=== PATIENT | male | born 1975 | race Caucasian/White ===

== ENCOUNTER 2017-05-18 12:30 | Outpatient (CLI) | payer BC, SELFPAY | END 2017-05-18 16:15 | disposition home or self-care (01) | PROVIDERS: Visit Provider Internal Medicine Gastroenterology | DX: K50.919 Crohn's disease, unspecified, with unspecified complications (principal) | CPT/HCPCS: 80053; 85025; 86140; 96413; 96415; J1745 ==

== ENCOUNTER → 2017-06-22 14:55 | Outpatient (REF) | payer BC, MEDICARE, SELFPAY ==
[2017-06-22 17:43] LABS: Basophils % 0.5 % (0.1-2.0); Eosinophils # 0.2 K/mm3 (0.0-0.4); Eosinophils % 2.1 % (0.1-12.0); Hematocrit 43.4 % (42.0-52.0); Hemoglobin 14.3 g/dL (14.1-18.0); Lymphocytes # 2.2 K/mm3 (0.7-4.5); Lymphocytes % 26.6 K/mm3 (10-50); Mean Corpuscular HGB Conc 32.8 g/dL (31.8-35.4); Mean Corpuscular Hemoglobin 29.6 pg (27.0-31.2); Mean Corpuscular Volume 90.1 fl (80-94); Mean Platelet Volume 7.9 fl (7.4-10.4); Monocytes # 0.6 K/mm3 (0.1-1.0); Neutrophils # 5.3 K/mm3 (1.8-7.8); Neutrophils % 63.8 % (37.0-80.0); Platelet Count 229 K/mm3 (142-424); Red Blood Count 4.82 M/mm3 (4.60-6.20); Red Cell Distribution Width 13.7 % (11.5-17.5); White Blood Count 8.4 K/mm3 (4.8-10.8)
[2017-06-22 18:16] LABS: Free T4 (Free Thyroxine) 1.06 ng/dl (0.76-1.46); Thyroid Stimulating Hormone 1.49 uIU/ml (0.358-3.740)
== END ==
LOC: LAB 14:55
PROVIDERS: Visit Provider Nurse Practitioner Family
DX: R94.6 Abnormal results of thyroid function studies (principal); E04.9 Nontoxic goiter, unspecified; J02.9 Acute pharyngitis, unspecified
CPT/HCPCS: 84439; 84443; 85025

== ENCOUNTER → 2017-07-06 10:24 | Outpatient (CLI) | payer BC, MEDICARE, SELFPAY ==
--- NOTE | 2017-07-06 10:27 | US_ITS ---
US thyroid HISTORY: ITS.REASON: enlarged thyroid ORDERING PHYSICIAN: Nando Lambert PATIENT AGE: 42 years COMPARISON: None FINDINGS: Right lobe: 4.4 x 1.8 x 2.7 cm with homogeneous echogenicity Left lobe: 4.6 x 1.9 x 2.0 cm with homogeneous echogenicity Isthmus: Mildly prominent at 5 mm No nodules apparent IMPRESSION: Thyromegaly. No thyroid nodules apparent. Homogeneous echogenicity
== END ==
PROVIDERS: Family Provider Emergency Medicine; PCP Emergency Medicine; Visit Provider Nurse Practitioner Family
DX: E04.9 Nontoxic goiter, unspecified (principal)
CPT/HCPCS: 76536

== ENCOUNTER 2017-07-09 10:30 | Outpatient (CLI) | payer BC, MEDICARE, SELFPAY ==
[2017-07-09] VITALS (9 sets, daily range): BP systolic 120–150; BP diastolic 70–92; PULSE 66–74; RESP 20; TEMP 36.4–36.9; O2SAT 96–98; BMI 33.2
[2017-07-09 11:10] LABS: Basophils # 0.1 K/mm3 (0-0.2); Basophils % 0.8 % (0.1-2.0); Eosinophils # 0.3 K/mm3 (0.0-0.4); Eosinophils % 3.5 % (0.1-12.0); Hematocrit 42.6 % (42.0-52.0); Hemoglobin 14.1 g/dL (14.1-18.0); Lymphocytes # 1.8 K/mm3 (0.7-4.5); Lymphocytes % 24.1 K/mm3 (10-50); Mean Corpuscular HGB Conc 33.2 g/dL (31.8-35.4); Mean Corpuscular Hemoglobin 29.4 pg (27.0-31.2); Mean Corpuscular Volume 88.6 fl (80-94); Mean Platelet Volume 7.6 fl (7.4-10.4); Monocytes # 0.4 K/mm3 (0.1-1.0); Monocytes % 5.9 % (1.7-9.3); Neutrophils # 4.9 K/mm3 (1.8-7.8); Neutrophils % 65.8 % (37.0-80.0); Platelet Count 206 K/mm3 (142-424); Red Cell Distribution Width 13.8 % (11.5-17.5); White Blood Count 7.5 K/mm3 (4.8-10.8)
[2017-07-09 11:28] LABS: Alanine Aminotransferase 38 U/L (12-78); Albumin Level 3.3 gm/dL (3.4-5.0); Albumin/Globulin Ratio 0.8 (1.1-1.8); Alkaline Phosphatase 73 U/L (46-116); Anion Gap 11.6 mEq/L (5-15); Aspartate Amino Transferase 22 U/L (15-37); Bilirubin,Total 0.5 mg/dL (0.2-1.0); Blood Urea Nitrogen 12 mg/dL (7-18); Calcium 8.3 mg/dL (8.5-10.1); Carbon Dioxide 29 mmol/L (21.0-32.0); Chloride 105 mmol/L (98-107); Creatinine Clearance Estimated 141 mL/min (0-300); Creatinine,Serum 1.05 mg/dL (0.70-1.30); Estimated Glomerular Filt Rate 77 ml/min (>60); GFR (African American) 93 ML/MIN (>60); Globulin 3.9 gm/dl (1.3-3.2); Glucose 124 mg/dL (74-106); Potassium 3.6 mmoL/L (3.5-5.1); Sodium 142 mmol/L (136-145); Total Protein,Serum 7.2 gm/dL (6.4-8.2)
[2017-07-09 11:29] LABS: C-Reactive Protein 0.4 mg/L (0.0-0.9)
== END 2017-07-09 15:10 | disposition home or self-care (01) ==
LOC: INF 11:22
PROVIDERS: Family Provider Emergency Medicine; PCP Emergency Medicine; Visit Provider Internal Medicine Gastroenterology
DX: K50.919 Crohn's disease, unspecified, with unspecified complications (principal)
CPT/HCPCS: 80053; 85025; 86140; 86480; 96413; 96415; J1745

== ENCOUNTER → 2017-07-16 09:09 | Outpatient (POV) | payer BC, MEDICARE, SELFPAY | PROVIDERS: Family Provider Emergency Medicine; PCP Emergency Medicine; Visit Provider Physician Assistant | DX: Z00.00 Encounter for general adult medical examination without abnormal findings (principal) ==

== ENCOUNTER 2017-08-22 09:00 | Outpatient (CLI) | payer BC, MEDICARE, SELFPAY ==
[2017-08-22] VITALS (11 sets, daily range): BP systolic 110–138; BP diastolic 71–89; PULSE 67–81; RESP 16–18; TEMP 36.5; BMI 33.2
[2017-08-22 09:39] LABS: Basophils % 0.3 % (0.1-2.0); Eosinophils # 0.1 K/mm3 (0.0-0.4); Eosinophils % 0.6 % (0.1-12.0); Hematocrit 42.4 % (42.0-52.0); Hemoglobin 14.3 g/dL (14.1-18.0); Lymphocytes # 1.8 K/mm3 (0.7-4.5); Lymphocytes % 16.7 K/mm3 (10-50); Mean Corpuscular HGB Conc 33.7 g/dL (31.8-35.4); Mean Corpuscular Hemoglobin 30.3 pg (27.0-31.2); Mean Platelet Volume 7.7 fl (7.4-10.4); Monocytes # 0.7 K/mm3 (0.1-1.0); Monocytes % 6.4 % (1.7-9.3); Neutrophils # 8.1 K/mm3 (1.8-7.8); Platelet Count 263 K/mm3 (142-424); Red Blood Count 4.71 M/mm3 (4.60-6.20); Red Cell Distribution Width 13.7 % (11.5-17.5); White Blood Count 10.7 K/mm3 (4.8-10.8)
[2017-08-22 09:52] LABS: Alanine Aminotransferase 40 U/L (12-78); Albumin Level 3.4 gm/dL (3.4-5.0); Albumin/Globulin Ratio 0.8 (1.1-1.8); Alkaline Phosphatase 85 U/L (46-116); Anion Gap 10.6 mEq/L (5-15); Aspartate Amino Transferase 17 U/L (15-37); Bilirubin,Total 0.6 mg/dL (0.2-1.0); Blood Urea Nitrogen 16 mg/dL (7-18); Calcium 8.6 mg/dL (8.5-10.1); Carbon Dioxide 27 mmol/L (21.0-32.0); Chloride 102 mmol/L (98-107); Creatinine Clearance Estimated 144 mL/min (0-300); Creatinine,Serum 1.03 mg/dL (0.70-1.30); Estimated Glomerular Filt Rate 78 ml/min (>60); GFR (African American) 95 ML/MIN (>60); Globulin 4.2 gm/dl (1.3-3.2); Glucose 147 mg/dL (74-106); Potassium 3.6 mmoL/L (3.5-5.1); Sodium 136 mmol/L (136-145); Total Protein,Serum 7.6 gm/dL (6.4-8.2)
[2017-08-22 09:55] LABS: C-Reactive Protein < 0.2 mg/L (0.0-0.9)
[2017-08-23 15:34] LABS: Thyroid Peroxidase Antibodies 14 IU/mL (0-34)
[2017-09-28 20:14] LABS: Thyroid Stimulating Immunoglob <0.10
== END 2017-08-22 12:35 | disposition home or self-care (01) ==
LOC: INF 09:04
PROVIDERS: Family Provider Emergency Medicine; PCP Emergency Medicine; Visit Provider Internal Medicine Gastroenterology
DX: K50.919 Crohn's disease, unspecified, with unspecified complications (principal)
CPT/HCPCS: 80053; 83520; 85025; 86140; 86376; 96413; 96415; J1745

== ENCOUNTER → 2018-02-08 09:02 | Outpatient (CLI) | payer BC, MEDICARE, SELFPAY ==
[2018-02-08 10:40] LABS: Basophils % 0.5 % (0.1-2.0); Eosinophils # 0.2 K/mm3 (0.0-0.4); Eosinophils % 2.9 % (0.1-12.0); Hematocrit 42.5 % (42.0-52.0); Lymphocytes # 1.4 K/mm3 (0.7-4.5); Mean Corpuscular Volume 91.2 fl (80-94); Mean Platelet Volume 7.1 fl (7.4-10.4); Monocytes # 0.4 K/mm3 (0.1-1.0); Monocytes % 7.7 % (1.7-9.3); Neutrophils # 3.5 K/mm3 (1.8-7.8); Neutrophils % 63.9 % (37.0-80.0); Platelet Count 225 K/mm3 (142-424); Red Blood Count 4.66 M/mm3 (4.60-6.20); Red Cell Distribution Width 14.3 % (11.5-17.5); White Blood Count 5.4 K/mm3 (4.8-10.8)
[2018-02-08 11:26] LABS: Alanine Aminotransferase 40 U/L (12-78); Albumin Level 3.3 gm/dL (3.4-5.0); Albumin/Globulin Ratio 0.9 (1.1-1.8); Alkaline Phosphatase 91 U/L (46-116); Anion Gap 10.8 mEq/L (5-15); Aspartate Amino Transferase 28 U/L (15-37); Bilirubin,Total 0.5 mg/dL (0.2-1.0); Blood Urea Nitrogen 7 mg/dL (7-18); C-Reactive Protein 0.9 mg/L (0.0-0.9); Calcium 8.5 mg/dL (8.5-10.1); Carbon Dioxide 29 mmol/L (21.0-32.0); Chloride 108 mmol/L (98-107); Creatinine,Serum 1.04 mg/dL (0.70-1.30); Estimated Glomerular Filt Rate 78 ml/min (>60); GFR (African American) 94 ML/MIN (>60); Globulin 3.6 gm/dl (1.3-3.2); Glucose 107 mg/dL (74-106); Potassium 3.8 mmoL/L (3.5-5.1); Sodium 144 mmol/L (136-145); Total Protein,Serum 6.9 gm/dL (6.4-8.2)
[2018-02-08 13:47] LABS: Adenovirus F 40/41, stool Not Detected (NotDetected); Astrovirus Not Detected (NotDetected); Campylobacter Not Detected (NotDetected); Clostridium Difficile A/B, PCR Not Detected (NotDetected); Cryptosporidium Not Detected (NotDetected); Cyclospora Cayetanesis Not Detected (NotDetected); Entamoeba histolytica Not Detected (NotDetected); Enteroaggregative E coli Not Detected (NotDetected); Enterotoxigenic E coli Not Detected (NotDetected); Giardia lamblia Not Detected (NotDetected); Norovirus Not Detected (NotDetected); Plesimonas Shigalloides, PCR Not Detected (NotDetected); Rotavirus A Not Detected (NotDetected); Salmonella, PCR Not Detected (NotDetected); Sapovirus Not Detected (NotDetected); Shiga-like toxin E coli Not Detected (NotDetected); Shigella Enterovasive E coli Not Detected (NotDetected); Vibrio Cholerae Not Detected (NotDetected); Vibrio, PCR Not Detected (NotDetected); Yersinia Entercolitica, PCR Not Detected (NotDetected)
[2018-02-08 17:02] LABS: Enteropathogenic E coli Detected (NotDetected)
[2018-02-11 05:17] LABS: Thyroid Peroxidase Antibodies 15 IU/mL (0-34)
[2018-02-11 05:26] LABS: Thyroid Stimulating Immunoglob <0.10 IU/L (0.00-0.55)
[2018-02-15 18:31] LABS: Calprotectin, Fecal 81 ug/g (0-120)
== END ==
PROVIDERS: Otolaryngology; PCP Emergency Medicine; Visit Provider Physician Assistant
DX: E01.0 Iodine-deficiency related diffuse (endemic) goiter (principal); K50.919 Crohn's disease, unspecified, with unspecified complications
CPT/HCPCS: 36415; 80053; 83993; 84445; 85025; 86140; 86376; 87507

== ENCOUNTER 2018-04-24 10:00 | Outpatient (CLI) | payer BC, MEDICARE, SELFPAY ==
[2018-04-24] VITALS (11 sets, daily range): BP systolic 139–169; BP diastolic 67–97; PULSE 71–83; RESP 16–18; O2SAT 100; BMI 33.5
[2018-04-24 10:32] LABS: Basophils # 0.1 K/mm3 (0-0.2); Basophils % 0.8 % (0.1-2.0); Eosinophils # 0.2 K/mm3 (0.0-0.4); Eosinophils % 2.2 % (0.1-12.0); Hematocrit 44.6 % (42.0-52.0); Hemoglobin 14.5 g/dL (14.1-18.0); Lymphocytes # 1.9 K/mm3 (0.7-4.5); Lymphocytes % 22.8 % (10-50); Mean Corpuscular HGB Conc 32.6 g/dL (31.8-35.4); Mean Platelet Volume 7.2 fl (7.4-10.4); Monocytes # 0.6 K/mm3 (0.1-1.0); Monocytes % 6.7 % (1.7-9.3); Neutrophils # 5.6 K/mm3 (1.8-7.8); Neutrophils % 67.5 % (37.0-80.0); Platelet Count 236 K/mm3 (142-424); Red Blood Count 4.85 M/mm3 (4.60-6.20); Red Cell Distribution Width 14.5 % (11.5-17.5); White Blood Count 8.3 K/mm3 (4.8-10.8)
[2018-04-24 10:43] LABS: Alanine Aminotransferase 38 U/L (12-78); Albumin Level 3.4 gm/dL (3.4-5.0); Albumin/Globulin Ratio 0.8 (1.1-1.8); Alkaline Phosphatase 76 U/L (46-116); Anion Gap 12.9 mEq/L (5-15); Aspartate Amino Transferase 17 U/L (15-37); Bilirubin,Total 0.4 mg/dL (0.2-1.0); Blood Urea Nitrogen 11 mg/dL (7-18); C-Reactive Protein 0.5 mg/L (0.0-0.9); Calcium 8.3 mg/dL (8.5-10.1); Carbon Dioxide 28 mmol/L (21.0-32.0); Chloride 102 mmol/L (98-107); Creatinine Clearance Estimated 139 mL/min (50-200); Creatinine,Serum 1.06 mg/dL (0.70-1.30); Estimated Glomerular Filt Rate 76 ml/min (>60); GFR (African American) 91 ML/MIN (>60); Globulin 4.2 gm/dl (1.3-3.2); Glucose 121 mg/dL (74-106); Potassium 3.9 mmoL/L (3.5-5.1); Sodium 139 mmol/L (136-145); Total Protein,Serum 7.6 gm/dL (6.4-8.2)
== END 2018-04-24 14:00 | disposition home or self-care (01) ==
LOC: INF 10:13
PROVIDERS: Visit Provider Physician Assistant
DX: K50.90 Crohn's disease, unspecified, without complications (principal)
CPT/HCPCS: 80053; 85025; 86140; 96413; 96415; J1745

== ENCOUNTER → 2018-04-30 13:27 | Outpatient (POV) | payer BC, MEDICARE, SELFPAY | PROVIDERS: Visit Provider Dermatology | DX: Z00.00 Encounter for general adult medical examination without abnormal findings (principal) ==

== ENCOUNTER 2018-06-07 12:07 | Outpatient (CLI) | payer BC, MEDICARE, SELFPAY ==
[2018-06-07] VITALS (9 sets, daily range): BP systolic 115–135; BP diastolic 66–79; PULSE 68–85; RESP 20; TEMP 36.9; O2SAT 95–98; BMI 42.0
[2018-06-07 13:00] LABS: Basophils # 0.1 K/mm3 (0-0.2); Eosinophils # 0.2 K/mm3 (0.0-0.4); Hemoglobin 14.7 g/dL (14.1-18.0); Lymphocytes # 1.8 K/mm3 (0.7-4.5); Lymphocytes % 25.9 % (10-50); Mean Corpuscular HGB Conc 31.2 g/dL (31.8-35.4); Mean Corpuscular Hemoglobin 29.2 pg (27.0-31.2); Mean Corpuscular Volume 93.5 fl (80-94); Mean Platelet Volume 7.6 fl (7.4-10.4); Monocytes # 0.5 K/mm3 (0.1-1.0); Monocytes % 6.9 % (1.7-9.3); Neutrophils # 4.3 K/mm3 (1.8-7.8); Neutrophils % 63.2 % (37.0-80.0); Platelet Count 248 K/mm3 (142-424); Red Blood Count 5.02 M/mm3 (4.60-6.20); Red Cell Distribution Width 13.8 % (11.5-17.5); White Blood Count 6.9 K/mm3 (4.8-10.8)
[2018-06-07 14:16] LABS: Alanine Aminotransferase 40 U/L (12-78); Albumin Level 3.5 gm/dL (3.4-5.0); Albumin/Globulin Ratio 0.8 (1.1-1.8); Alkaline Phosphatase 92 U/L (46-116); Aspartate Amino Transferase 26 U/L (15-37); Bilirubin,Total 0.6 mg/dL (0.2-1.0); Blood Urea Nitrogen 10 mg/dL (7-18); C-Reactive Protein 0.9 mg/L (0.0-0.9); Calcium 8.5 mg/dL (8.5-10.1); Carbon Dioxide 31 mmol/L (21.0-32.0); Chloride 102 mmol/L (98-107); Creatinine Clearance Estimated 67 mL/min (50-200); Creatinine,Serum 1.17 mg/dL (0.70-1.30); Estimated Glomerular Filt Rate 67 ml/min (>60); GFR (African American) 82 ML/MIN (>60); Globulin 4.4 gm/dl (1.3-3.2); Glucose 116 mg/dL (74-106); Sodium 140 mmol/L (136-145); Total Protein,Serum 7.9 gm/dL (6.4-8.2)
== END 2018-06-07 15:35 | disposition home or self-care (01) ==
LOC: INF 12:07
PROVIDERS: Visit Provider Physician Assistant
DX: K50.919 Crohn's disease, unspecified, with unspecified complications (principal)
CPT/HCPCS: 80053; 85025; 86140; 96413; 96415; J1745

== ENCOUNTER 2018-07-19 09:18 | Outpatient (CLI) | payer BC, MEDICARE, SELFPAY ==
[2018-07-19] VITALS (11 sets, daily range): BP systolic 110–142; BP diastolic 66–90; PULSE 68–76; RESP 18; TEMP 36.6; O2SAT 96; BMI 34.0
[2018-07-19 09:44] LABS: Basophils # 0.1 K/mm3 (0-0.2); Basophils % 0.9 % (0.1-2.0); Eosinophils # 0.2 K/mm3 (0.0-0.4); Eosinophils % 2.7 % (0.1-12.0); Hematocrit 42.8 % (42.0-52.0); Hemoglobin 14.4 g/dL (14.1-18.0); Lymphocytes # 1.7 K/mm3 (0.7-4.5); Lymphocytes % 24.8 % (10-50); Mean Corpuscular HGB Conc 33.7 g/dL (31.8-35.4); Mean Corpuscular Hemoglobin 30.3 pg (27.0-31.2); Mean Platelet Volume 7.3 fl (7.4-10.4); Monocytes # 0.5 K/mm3 (0.1-1.0); Monocytes % 6.4 % (1.7-9.3); Neutrophils # 4.6 K/mm3 (1.8-7.8); Neutrophils % 65.2 % (37.0-80.0); Platelet Count 223 K/mm3 (142-424); Red Blood Count 4.75 M/mm3 (4.60-6.20); Red Cell Distribution Width 13.8 % (11.5-17.5)
[2018-07-19 09:55] LABS: Alanine Aminotransferase 63 U/L (12-78); Albumin Level 3.3 gm/dL (3.4-5.0); Albumin/Globulin Ratio 0.8 (1.1-1.8); Alkaline Phosphatase 71 U/L (46-116); Anion Gap 8.8 mEq/L (5-15); Aspartate Amino Transferase 21 U/L (15-37); Bilirubin,Total 0.6 mg/dL (0.2-1.0); Blood Urea Nitrogen 13 mg/dL (7-18); C-Reactive Protein 0.3 mg/L (0.0-0.9); Calcium 8.6 mg/dL (8.5-10.1); Carbon Dioxide 30 mmol/L (21.0-32.0); Chloride 104 mmol/L (98-107); Creatinine Clearance Estimated 137 mL/min (50-200); Estimated Glomerular Filt Rate 72 ml/min (>60); GFR (African American) 88 ML/MIN (>60); Globulin 3.9 gm/dl (1.3-3.2); Glucose 115 mg/dL (74-106); Potassium 3.8 mmoL/L (3.5-5.1); Sodium 139 mmol/L (136-145); Total Protein,Serum 7.2 gm/dL (6.4-8.2)
== END 2018-07-19 12:50 | disposition home or self-care (01) ==
LOC: INF 09:18
PROVIDERS: Visit Provider Physician Assistant
DX: K50.919 Crohn's disease, unspecified, with unspecified complications (principal)
CPT/HCPCS: 80053; 85025; 86140; 96413; 96415; J1745

== ENCOUNTER 2018-09-10 09:28 | Outpatient (CLI) | payer BC, MEDICARE, SELFPAY ==
[2018-09-10] VITALS (9 sets, daily range): BP systolic 121–154; BP diastolic 75–94; PULSE 74–85; RESP 16–20; TEMP 36.6–36.8; O2SAT 96–98; BMI 34.3
[2018-09-10 10:12] LABS: Basophils # 0.1 K/mm3 (0-0.2); Basophils % 0.9 % (0.1-2.0); Eosinophils # 0.2 K/mm3 (0.0-0.4); Eosinophils % 2.9 % (0.1-12.0); Hematocrit 41.5 % (42.0-52.0); Hemoglobin 14.2 g/dL (14.1-18.0); Lymphocytes # 1.7 K/mm3 (0.7-4.5); Lymphocytes % 24.6 % (10-50); Mean Corpuscular HGB Conc 34.3 g/dL (31.8-35.4); Mean Corpuscular Hemoglobin 30.2 pg (27.0-31.2); Mean Corpuscular Volume 88.1 fl (80-94); Mean Platelet Volume 7.1 fl (7.4-10.4); Monocytes # 0.5 K/mm3 (0.1-1.0); Monocytes % 7.2 % (1.7-9.3); Neutrophils # 4.4 K/mm3 (1.8-7.8); Neutrophils % 64.4 % (37.0-80.0); Platelet Count 240 K/mm3 (142-424); Red Blood Count 4.71 M/mm3 (4.60-6.20); Red Cell Distribution Width 14.5 % (11.5-17.5); White Blood Count 6.8 K/mm3 (4.8-10.8)
[2018-09-10 10:26] LABS: Alanine Aminotransferase 46 U/L (12-78); Albumin Level 3.2 gm/dL (3.4-5.0); Albumin/Globulin Ratio 0.7 (1.1-1.8); Alkaline Phosphatase 73 U/L (46-116); Anion Gap 11.9 mEq/L (5-15); Bilirubin,Total 0.5 mg/dL (0.2-1.0); Blood Urea Nitrogen 12 mg/dL (7-18); C-Reactive Protein 0.5 mg/L (0.0-0.9); Calcium 8.4 mg/dL (8.5-10.1); Carbon Dioxide 27 mmol/L (21.0-32.0); Chloride 104 mmol/L (98-107); Creatinine Clearance Estimated 135 mL/min (50-200); Creatinine,Serum 1.12 mg/dL (0.70-1.30); Estimated Glomerular Filt Rate 71 ml/min (>60); GFR (African American) 86 ML/MIN (>60); Globulin 4.3 gm/dl (1.3-3.2); Glucose 106 mg/dL (74-106); Sodium 139 mmol/L (136-145); Total Protein,Serum 7.5 gm/dL (6.4-8.2)
[2018-09-10 10:29] LABS: Aspartate Amino Transferase 18 U/L (15-37); Potassium 3.9 mmoL/L (3.5-5.1)
== END 2018-09-10 13:15 | disposition home or self-care (01) ==
LOC: INF 09:29
PROVIDERS: Visit Provider Physician Assistant
DX: K50.919 Crohn's disease, unspecified, with unspecified complications (principal)
CPT/HCPCS: 80053; 85025; 86140; 96413; 96415; J1745

== ENCOUNTER 2018-10-25 09:08 | Outpatient (CLI) | payer BC, MEDICARE, SELFPAY ==
[2018-10-25] VITALS (7 sets, daily range): BP systolic 114–141; BP diastolic 71–89; PULSE 69–89; RESP 16–20; O2SAT 91–96; BMI 33.6
[2018-10-25 09:47] LABS: Alanine Aminotransferase 50 U/L (12-78); Albumin Level 3.2 gm/dL (3.4-5.0); Albumin/Globulin Ratio 0.8 (1.1-1.8); Alkaline Phosphatase 87 U/L (46-116); Anion Gap 13.8 mEq/L (5-15); Aspartate Amino Transferase 23 U/L (15-37); Bilirubin,Total 0.6 mg/dL (0.2-1.0); Blood Urea Nitrogen 12 mg/dL (7-18); C-Reactive Protein 1.1 mg/L (0.0-0.9); Calcium 8.4 mg/dL (8.5-10.1); Carbon Dioxide 27 mmol/L (21.0-32.0); Chloride 103 mmol/L (98-107); Creatinine Clearance Estimated 127 mL/min (50-200); Creatinine,Serum 1.17 mg/dL (0.70-1.30); Estimated Glomerular Filt Rate 67 ml/min (>60); GFR (African American) 82 ML/MIN (>60); Glucose 101 mg/dL (74-106); Potassium 3.8 mmoL/L (3.5-5.1); Sodium 140 mmol/L (136-145); Total Protein,Serum 7.2 gm/dL (6.4-8.2)
[2018-10-25 10:50] LABS: Basophils # 0.1 K/mm3 (0-0.2); Basophils % 0.6 % (0.1-2.0); Eosinophils # 0.4 K/mm3 (0.0-0.4); Eosinophils % 4.5 % (0.1-12.0); Hematocrit 42.3 % (42.0-52.0); Hemoglobin 14.4 g/dL (14.1-18.0); Lymphocytes # 1.8 K/mm3 (0.7-4.5); Lymphocytes % 22.3 % (10-50); Mean Corpuscular Hemoglobin 29.9 pg (27.0-31.2); Mean Platelet Volume 7.5 fl (7.4-10.4); Monocytes # 0.6 K/mm3 (0.1-1.0); Monocytes % 7.5 % (1.7-9.3); Neutrophils # 5.3 K/mm3 (1.8-7.8); Neutrophils % 65.2 % (37.0-80.0); Platelet Count 235 K/mm3 (142-424); Red Blood Count 4.81 M/mm3 (4.60-6.20); Red Cell Distribution Width 14.1 % (11.5-17.5); White Blood Count 8.1 K/mm3 (4.8-10.8)
== END 2018-10-25 12:55 | disposition home or self-care (01) ==
LOC: INF 09:08
PROVIDERS: Visit Provider Physician Assistant
DX: K50.919 Crohn's disease, unspecified, with unspecified complications (principal); Z88.1 Allergy status to other antibiotic agents
CPT/HCPCS: 80053; 85025; 86140; 96413; 96415; J1745

== ENCOUNTER → 2018-10-29 08:11 | Outpatient (POV) | payer BC, MEDICARE, SELFPAY | PROVIDERS: Visit Provider Dermatology | DX: Z00.00 Encounter for general adult medical examination without abnormal findings (principal) ==

== ENCOUNTER 2018-12-19 08:25 | Outpatient (CLI) | payer BC, MEDICARE, SELFPAY ==
[2018-12-19] VITALS (8 sets, daily range): BP systolic 118–137; BP diastolic 71–92; PULSE 72–80; RESP 16–20; TEMP 36.6–36.8; O2SAT 96–99; BMI 33.9
[2018-12-19 09:36] LABS: Basophils % 0.4 % (0.1-2.0); Eosinophils # 0.2 K/mm3 (0.0-0.4); Eosinophils % 2.6 % (0.1-12.0); Hematocrit 40.1 % (42.0-52.0); Hemoglobin 12.9 g/dL (14.1-18.0); Lymphocytes # 1.5 K/mm3 (0.7-4.5); Lymphocytes % 25.6 % (10-50); Mean Corpuscular HGB Conc 32.1 g/dL (31.8-35.4); Mean Corpuscular Volume 87.4 fl (80-94); Mean Platelet Volume 7.7 fl (7.4-10.4); Monocytes # 0.5 K/mm3 (0.1-1.0); Monocytes % 9.5 % (1.7-9.3); Neutrophils # 3.5 K/mm3 (1.8-7.8); Neutrophils % 61.9 % (37.0-80.0); Platelet Count 230 K/mm3 (142-424); Red Blood Count 4.59 M/mm3 (4.60-6.20); Red Cell Distribution Width 13.6 % (11.5-17.5); White Blood Count 5.7 K/mm3 (4.8-10.8)
[2018-12-19 09:41] LABS: Alanine Aminotransferase 43 U/L (12-78); Albumin/Globulin Ratio 0.8 (1.1-1.8); Alkaline Phosphatase 83 U/L (46-116); Anion Gap 8.5 mEq/L (5-15); Aspartate Amino Transferase 15 U/L (15-37); Bilirubin,Total 0.6 mg/dL (0.2-1.0); Blood Urea Nitrogen 13 mg/dL (7-18); Calcium 8.5 mg/dL (8.5-10.1); Carbon Dioxide 31 mmol/L (21.0-32.0); Chloride 104 mmol/L (98-107); Creatinine Clearance Estimated 127 mL/min (50-200); Creatinine,Serum 1.18 mg/dL (0.70-1.30); Estimated Glomerular Filt Rate 67 ml/min (>60); GFR (African American) 81 ML/MIN (>60); Glucose 96 mg/dL (74-106); Potassium 3.5 mmoL/L (3.5-5.1); Sodium 140 mmol/L (136-145)
== END 2018-12-19 11:54 | disposition home or self-care (01) ==
LOC: INF 08:25
PROVIDERS: Visit Provider Physician Assistant
DX: K50.90 Crohn's disease, unspecified, without complications (principal)
CPT/HCPCS: 80053; 85025; 86140; 96413; 96415; J1745

== ENCOUNTER 2019-02-07 08:58 | Outpatient (CLI) | payer BC, MEDICARE, SELFPAY ==
[2019-02-07] VITALS (11 sets, daily range): BP systolic 107–147; BP diastolic 68–83; PULSE 74–88; RESP 18; O2SAT 94; BMI 33.9
[2019-02-07 09:33] LABS: Alanine Aminotransferase 58 U/L (12-78); Albumin Level 3.3 gm/dL (3.4-5.0); Albumin/Globulin Ratio 0.8 (1.1-1.8); Alkaline Phosphatase 95 U/L (46-116); Aspartate Amino Transferase 25 U/L (15-37); Basophils % 0.6 % (0.1-2.0); Bilirubin,Total 0.5 mg/dL (0.2-1.0); Blood Urea Nitrogen 14 mg/dL (7-18); C-Reactive Protein 1.1 mg/dL (0.0-0.9); Calcium 8.7 mg/dL (8.5-10.1); Carbon Dioxide 27 mmol/L (21.0-32.0); Chloride 104 mmol/L (98-107); Creatinine Clearance Estimated 136 mL/min (50-200); Eosinophils # 0.2 K/mm3 (0.0-0.4); Eosinophils % 3.4 % (0.1-12.0); Estimated Glomerular Filt Rate 72 ml/min (>60); GFR (African American) 88 ML/MIN (>60); Globulin 4.1 gm/dl (1.3-3.2); Glucose 122 mg/dL (74-106); Hematocrit 43.7 % (42.0-52.0); Hemoglobin 14.3 g/dL (14.1-18.0); Lymphocytes # 1.6 K/mm3 (0.7-4.5); Lymphocytes % 22.8 % (10-50); Mean Corpuscular HGB Conc 32.7 g/dL (31.8-35.4); Mean Corpuscular Volume 91.5 fl (80-94); Mean Platelet Volume 8.2 fl (7.4-10.4); Monocytes # 0.6 K/mm3 (0.1-1.0); Neutrophils # 4.6 K/mm3 (1.8-7.8); Neutrophils % 65.1 % (37.0-80.0); Platelet Count 237 K/mm3 (142-424); Red Blood Count 4.77 M/mm3 (4.60-6.20); Red Cell Distribution Width 13.9 % (11.5-17.5); Sodium 141 mmol/L (136-145); Total Protein,Serum 7.4 gm/dL (6.4-8.2); White Blood Count 7.1 K/mm3 (4.8-10.8)
== END 2019-02-07 12:25 | disposition home or self-care (01) ==
LOC: INF 08:58
PROVIDERS: Visit Provider Physician Assistant
DX: K50.90 Crohn's disease, unspecified, without complications (principal)
CPT/HCPCS: 80053; 85025; 86140; 96413; 96415; J1745

== ENCOUNTER 2019-03-03 09:32 | Outpatient (CLI) | payer BC, MEDICARE, SELFPAY ==
[2019-03-03 09:36] VITALS: BMI 33.9
[2019-03-03 09:52] LABS: Basophils % 0.5 % (0.1-2.0); Eosinophils # 0.2 K/mm3 (0.0-0.4); Eosinophils % 2.3 % (0.1-12.0); Hematocrit 44.2 % (42.0-52.0); Hemoglobin 13.8 g/dL (14.1-18.0); Lymphocytes # 1.6 K/mm3 (0.7-4.5); Lymphocytes % 21.6 % (10-50); Mean Corpuscular HGB Conc 31.3 g/dL (31.8-35.4); Mean Corpuscular Volume 92.8 fl (80-94); Mean Platelet Volume 7.7 fl (7.4-10.4); Monocytes # 0.5 K/mm3 (0.1-1.0); Neutrophils # 5.2 K/mm3 (1.8-7.8); Neutrophils % 68.6 % (37.0-80.0); Platelet Count 240 K/mm3 (142-424); Red Blood Count 4.76 M/mm3 (4.60-6.20); Red Cell Distribution Width 14.8 % (11.5-17.5); White Blood Count 7.6 K/mm3 (4.8-10.8)
[2019-03-03 10:16] LABS: Alanine Aminotransferase 57 U/L (12-78); Albumin Level 3.2 gm/dL (3.4-5.0); Albumin/Globulin Ratio 0.8 (1.1-1.8); Alkaline Phosphatase 83 U/L (46-116); Aspartate Amino Transferase 24 U/L (15-37); Bilirubin,Total 0.6 mg/dL (0.2-1.0); Blood Urea Nitrogen 12 mg/dL (7-18); C-Reactive Protein 1.2 mg/dL (0.0-0.9); Calcium 8.7 mg/dL (8.5-10.1); Carbon Dioxide 29 mmol/L (21.0-32.0); Chloride 105 mmol/L (98-107); Creatinine Clearance Estimated 144 mL/min (50-200); Creatinine,Serum 1.04 mg/dL (0.70-1.30); Estimated Glomerular Filt Rate 77 ml/min (>60); GFR (African American) 93 ML/MIN (>60); Globulin 3.9 gm/dl (1.3-3.2); Glucose 108 mg/dL (74-106); Sodium 143 mmol/L (136-145); Total Protein,Serum 7.1 gm/dL (6.4-8.2)
[2019-03-03 10:22] VITALS: BP 133/72; PULSE 87; RESP 18; TEMP 36.6; O2SAT 100
[2019-03-03 10:40] VITALS: BP 120/70; PULSE 79; RESP 18; TEMP 36.7; O2SAT 99
[2019-03-03 10:55] VITALS: BP 128/70; PULSE 73; RESP 20; TEMP 36.6; O2SAT 98
[2019-03-03 11:10] VITALS: BP 126/74; PULSE 75; RESP 18; TEMP 36.6; O2SAT 99
[2019-03-03 11:25] VITALS: BP 121/79; PULSE 72; RESP 18; TEMP 36.6; O2SAT 98
[2019-03-03 11:55] VITALS: BP 132/78; PULSE 74; RESP 18; TEMP 36.7; O2SAT 99
== END 2019-03-03 12:00 | disposition home or self-care (01) ==
LOC: INF 09:32
PROVIDERS: Visit Provider Physician Assistant
DX: K50.90 Crohn's disease, unspecified, without complications (principal)
CPT/HCPCS: 80053; 85025; 86140; 96413; J3590

== ENCOUNTER → 2019-04-22 10:08 | Outpatient (CLI) | payer BC, SELFPAY ==
[2019-04-22 10:19] LABS: Adenovirus F 40/41, stool Not Detected (NotDetected); Astrovirus Not Detected (NotDetected); Campylobacter Not Detected (NotDetected); Clostridium Difficile A/B, PCR Not Detected (NotDetected); Cryptosporidium Not Detected (NotDetected); Cyclospora Cayetanesis Not Detected (NotDetected); Entamoeba histolytica Not Detected (NotDetected); Enteroaggregative E coli Not Detected (NotDetected); Enteropathogenic E coli Not Detected (NotDetected); Enterotoxigenic E coli Not Detected (NotDetected); Giardia lamblia Not Detected (NotDetected); Norovirus Not Detected (NotDetected); Plesimonas Shigalloides, PCR Not Detected (NotDetected); Rotavirus A Not Detected (NotDetected); Salmonella, PCR Not Detected (NotDetected); Sapovirus Not Detected (NotDetected); Shiga-like toxin E coli Not Detected (NotDetected); Shigella Enterovasive E coli Not Detected (NotDetected); Vibrio Cholerae Not Detected (NotDetected); Vibrio, PCR Not Detected (NotDetected); Yersinia Entercolitica, PCR Not Detected (NotDetected)
[2019-04-24 21:11] LABS: Calprotectin, Fecal 785 ug/g (0-120)
== END ==
PROVIDERS: Visit Provider Physician Assistant
DX: K50.919 Crohn's disease, unspecified, with unspecified complications (principal)
CPT/HCPCS: 83993; 87177; 87507

== ENCOUNTER → 2019-06-24 08:18 | Outpatient (POV) | payer BC, SELFPAY | PROVIDERS: Visit Provider Dermatology | DX: Z00.00 Encounter for general adult medical examination without abnormal findings (principal) ==

== ENCOUNTER → 2019-07-08 09:57 | Outpatient (POV) | payer BC, SELFPAY | PROVIDERS: Visit Provider Dermatology | DX: Z00.00 Encounter for general adult medical examination without abnormal findings (principal) ==

== ENCOUNTER 2019-07-16 10:15 | Outpatient (CLI) | payer BC, SELFPAY ==
[2019-07-16 10:20] VITALS: BMI 33.6
[2019-07-16 10:40] VITALS: BP 129/81; PULSE 83; RESP 18
[2019-07-16 10:55] VITALS: BP 142/82; PULSE 89; RESP 18
[2019-07-16 10:59] LABS: Alanine Aminotransferase 65 U/L (12-78); Albumin/Globulin Ratio 1.2 (1.1-1.8); Alkaline Phosphatase 76 U/L (38-126); Anion Gap 9.9 mEq/L (5-15); Aspartate Amino Transferase 44 U/L (17-59); Bilirubin,Total 0.3 mg/dl (0.2-1.3); Blood Urea Nitrogen 17 mg/dl (9-20); Carbon Dioxide 29 mmol/L (22.0-30.0); Chloride 103 mmol/L (98-107); Creatinine Clearance Estimated 147 mL/min (50-200); Estimated Glomerular Filt Rate 80 ml/min (>60); GFR (African American) 97 ML/MIN (>60); Globulin 3.4 g/dL (1.3-3.2); Glucose 113 mg/dl (74-100); Potassium 3.9 mmoL/L (3.5-5.1); Sodium 138 mmol/L (136-145); Total Protein,Serum 7.4 g/dl (6.3-8.2)
[2019-07-16 11:06] LABS: C-Reactive Protein 5.7 mg/L (0-4)
[2019-07-16 11:08] LABS: Basophils # 0.1 K/mm3 (0-0.2); Basophils % 0.6 % (0.1-2.0); Eosinophils # 0.2 K/mm3 (0.0-0.4); Eosinophils % 1.6 % (0.1-12.0); Hematocrit 43.8 % (42.0-52.0); Hemoglobin 13.7 g/dL (14.1-18.0); Lymphocytes # 1.2 K/mm3 (0.7-4.5); Lymphocytes % 11.8 % (10-50); Mean Corpuscular HGB Conc 31.3 g/dL (31.8-35.4); Mean Corpuscular Hemoglobin 28.7 pg (27.0-31.2); Mean Corpuscular Volume 91.8 fl (80-94); Mean Platelet Volume 7.6 fl (7.4-10.4); Monocytes # 0.6 K/mm3 (0.1-1.0); Monocytes % 5.6 % (1.7-9.3); Neutrophils # 8.4 K/mm3 (1.8-7.8); Neutrophils % 80.4 % (37.0-80.0); Platelet Count 226 K/mm3 (142-424); Red Blood Count 4.78 M/mm3 (4.60-6.20); White Blood Count 10.4 K/mm3 (4.8-10.8)
[2019-07-16 11:20] VITALS: BP 148/98; PULSE 86; RESP 18
== END 2019-07-16 11:20 | disposition home or self-care (01) ==
PROVIDERS: PCP Emergency Medicine; Visit Provider Physician Assistant
DX: K50.919 Crohn's disease, unspecified, with unspecified complications (principal)
CPT/HCPCS: 80053; 85025; 86140; 96413; J3380

== ENCOUNTER 2019-07-30 12:12 | Outpatient (CLI) | payer BC, SELFPAY ==
[2019-07-30 12:12] VITALS: BMI 33.6
[2019-07-30 12:30] VITALS: BP 141/83; PULSE 69; RESP 20
[2019-07-30 12:40] LABS: Basophils # 0.1 K/mm3 (0-0.2); Basophils % 0.6 % (0.1-2.0); Eosinophils # 0.1 K/mm3 (0.0-0.4); Eosinophils % 1.6 % (0.1-12.0); Hematocrit 43.1 % (42.0-52.0); Hemoglobin 13.7 g/dL (14.1-18.0); Lymphocytes # 1.4 K/mm3 (0.7-4.5); Lymphocytes % 16.3 % (10-50); Mean Corpuscular HGB Conc 31.7 g/dL (31.8-35.4); Mean Corpuscular Hemoglobin 28.3 pg (27.0-31.2); Mean Corpuscular Volume 89.5 fl (80-94); Mean Platelet Volume 7.5 fl (7.4-10.4); Monocytes # 0.4 K/mm3 (0.1-1.0); Monocytes % 5.1 % (1.7-9.3); Neutrophils # 6.3 K/mm3 (1.8-7.8); Neutrophils % 76.4 % (37.0-80.0); Platelet Count 230 K/mm3 (142-424); Red Blood Count 4.82 M/mm3 (4.60-6.20); Red Cell Distribution Width 14.2 % (11.5-17.5); White Blood Count 8.3 K/mm3 (4.8-10.8)
[2019-07-30 12:49] LABS: Alanine Aminotransferase 42 U/L (12-78); Albumin Level 4.1 g/dl (3.5-5.0); Albumin/Globulin Ratio 1.2 (1.1-1.8); Alkaline Phosphatase 73 U/L (38-126); Anion Gap 9.1 mEq/L (5-15); Aspartate Amino Transferase 32 U/L (17-59); Bilirubin,Total 0.4 mg/dl (0.2-1.3); Blood Urea Nitrogen 10 mg/dl (9-20); Calcium 9.2 mg/dl (8.4-10.2); Carbon Dioxide 30 mmol/L (22.0-30.0); Chloride 102 mmol/L (98-107); Creatinine Clearance Estimated 147 mL/min (50-200); Estimated Glomerular Filt Rate 80 ml/min (>60); GFR (African American) 97 ML/MIN (>60); Globulin 3.5 g/dL (1.3-3.2); Glucose 104 mg/dl (74-100); Potassium 4.1 mmoL/L (3.5-5.1); Sodium 137 mmol/L (136-145); Total Protein,Serum 7.6 g/dl (6.3-8.2)
[2019-07-30 12:54] LABS: C-Reactive Protein 5.4 mg/L (0-4)
[2019-07-30 13:10] VITALS: BP 141/87; PULSE 69; RESP 20
== END 2019-07-30 13:15 | disposition home or self-care (01) ==
LOC: INF 12:12
PROVIDERS: Visit Provider Physician Assistant
DX: K50.919 Crohn's disease, unspecified, with unspecified complications (principal)
CPT/HCPCS: 80053; 85025; 86140; 96413; J3380

== ENCOUNTER 2019-08-27 11:40 | Outpatient (CLI) | payer BC, SELFPAY ==
[2019-08-27 11:49] VITALS: BMI 33.6
[2019-08-27 12:22] LABS: Basophils # 0.1 K/mm3 (0-0.2); Basophils % 0.5 % (0.1-2.0); Eosinophils # 0.3 K/mm3 (0.0-0.4); Eosinophils % 2.8 % (0.1-12.0); Hematocrit 43.6 % (42.0-52.0); Hemoglobin 13.9 g/dL (14.1-18.0); Lymphocytes # 1.6 K/mm3 (0.7-4.5); Lymphocytes % 17.7 % (10-50); Mean Corpuscular HGB Conc 31.9 g/dL (31.8-35.4); Mean Corpuscular Hemoglobin 28.6 pg (27.0-31.2); Mean Corpuscular Volume 89.8 fl (80-94); Mean Platelet Volume 7.6 fl (7.4-10.4); Monocytes # 0.5 K/mm3 (0.1-1.0); Monocytes % 5.2 % (1.7-9.3); Neutrophils # 6.7 K/mm3 (1.8-7.8); Neutrophils % 73.7 % (37.0-80.0); Platelet Count 219 K/mm3 (142-424); Red Blood Count 4.86 M/mm3 (4.60-6.20); Red Cell Distribution Width 13.4 % (11.5-17.5); White Blood Count 9.1 K/mm3 (4.8-10.8)
[2019-08-27 12:24] LABS: Chloride 102 mmol/L (98-107); Sodium 138 mmol/L (136-145)
[2019-08-27 12:25] VITALS: BP 160/107; PULSE 87; RESP 20; TEMP 36.7
[2019-08-27 12:26] LABS: Blood Urea Nitrogen 12 mg/dl (9-20); Creatinine Clearance Estimated 163 mL/min (50-200); Estimated Glomerular Filt Rate 91 ml/min (>60); GFR (African American) 110 ML/MIN (>60)
[2019-08-27 12:27] LABS: Alanine Aminotransferase 35 U/L (12-78); Albumin Level 3.9 g/dl (3.5-5.0); Albumin/Globulin Ratio 1.1 (1.1-1.8); Alkaline Phosphatase 61 U/L (38-126); Aspartate Amino Transferase 25 U/L (17-59); Bilirubin,Total 0.6 mg/dl (0.2-1.3); Carbon Dioxide 29 mmol/L (22.0-30.0); Globulin 3.4 g/dL (1.3-3.2); Glucose 114 mg/dl (74-100); Total Protein,Serum 7.3 g/dl (6.3-8.2)
[2019-08-27 12:33] LABS: C-Reactive Protein 8.9 mg/L (0-4)
[2019-08-27 12:40] VITALS: BP 159/91; PULSE 81; RESP 18
[2019-08-27 12:55] VITALS: BP 145/78; PULSE 86; RESP 18
== END 2019-08-27 13:10 | disposition home or self-care (01) ==
LOC: INF 11:45
PROVIDERS: Visit Provider Physician Assistant
DX: K50.90 Crohn's disease, unspecified, without complications (principal)
CPT/HCPCS: 80053; 85025; 86140; 96413; J3380

== ENCOUNTER 2019-09-26 05:22 | Emergency (ER) | payer BC, SELFPAY ==
[2019-09-26 05:36] VITALS: BP 141/88; PULSE 95; RESP 16; TEMP 36.7; O2SAT 96; BMI 33.2
--- NOTE | 2019-09-26 05:44 | CA_ITS ---
APPROVED REPORT Right Lower Extremity Venous Study for DVT. Pl Sql Developer: CT Indications DVT of Lower Extremity: Right rule out clot Past History DVT : Date : 05/2014 Prior Lower Extremity Venous Duplex Extensive RLE DVT from a lengthy hospital stay at from bowel resection and sepsis Vein Imaging CFV (R): compressive, spontaneous, phasic, augmentation SFJ (R): compressive, spontaneous, phasic, augmentation FEM (R): Partially Compressible POP (R): Partially Compressible PTV (R): Compressible GSV (R): Compressible SSV (R): Not Visualized Peroneals (R):Compressible GAS (R): Partially Compressible Findings The right Femoral, , Popliteal, and Calf Veins are dilated with mixed echoes and are not fully compressible. Reflux noted in SFV and Pop veins. Conclusion The right Femoral, , Popliteal, and Calf Veins are dilated with mixed echoes and are not fully compressible compatible with DVT Critical Notification Critical Value: Yes Physician Notified Date: 09/26/2019 Time: 07:43 Physician Name: Lori Other Discipline: RN Report Read Back Electronically signed by : Alan Clark MD 09/26/2019 17:04:33
[2019-09-26 06:04] LABS: Basophils # 0.1 K/mm3 (0-0.2); Basophils % 0.6 % (0.1-2.0); Eosinophils # 0.5 K/mm3 (0.0-0.4); Eosinophils % 4.7 % (0.1-12.0); Hematocrit 43.2 % (42.0-52.0); Hemoglobin 14.4 g/dL (14.1-18.0); Lymphocytes # 1.7 K/mm3 (0.7-4.5); Lymphocytes % 16.8 % (10-50); Mean Corpuscular HGB Conc 33.4 g/dL (31.8-35.4); Mean Corpuscular Hemoglobin 28.4 pg (27.0-31.2); Mean Corpuscular Volume 85.2 fl (80-94); Mean Platelet Volume 8.1 fl (7.4-10.4); Monocytes # 0.7 K/mm3 (0.1-1.0); Monocytes % 6.9 % (1.7-9.3); Neutrophils # 7.1 K/mm3 (1.8-7.8); Neutrophils % 71.1 % (37.0-80.0); Platelet Count 203 K/mm3 (142-424); Red Blood Count 5.06 M/mm3 (4.60-6.20); Red Cell Distribution Width 13.3 % (11.5-17.5); White Blood Count 9.9 K/mm3 (4.8-10.8)
[2019-09-26 06:08] LABS: Chloride 103 mmol/L (98-107); Potassium 3.9 mmoL/L (3.5-5.1); Sodium 138 mmol/L (136-145)
[2019-09-26 06:11] LABS: Alanine Aminotransferase 53 U/L (12-78); Albumin Level 3.9 g/dl (3.5-5.0); Albumin/Globulin Ratio 1.2 (1.1-1.8); Alkaline Phosphatase 84 U/L (38-126); Anion Gap 10.9 mEq/L (5-15); Aspartate Amino Transferase 31 U/L (17-59); Bilirubin,Total 0.6 mg/dl (0.2-1.3); Blood Urea Nitrogen 14 mg/dl (9-20); Calcium 9.1 mg/dl (8.4-10.2); Carbon Dioxide 28 mmol/L (22.0-30.0); Creatinine Clearance Estimated 145 mL/min (50-200); Estimated Glomerular Filt Rate 80 ml/min (>60); GFR (African American) 97 ML/MIN (>60); Globulin 3.3 g/dL (1.3-3.2); Glucose 111 mg/dl (74-100); Total Protein,Serum 7.2 g/dl (6.3-8.2)
[2019-09-26 06:27] LABS: Erythrocyte Sedimentation Rate 19 mm/hr (0-15)
[2019-09-26 06:32] VITALS: BP 131/86; PULSE 88; RESP 16; O2SAT 97
--- NOTE | 2019-09-26 06:37 | PC.NURSE ---
Patient gone to vascular for doppler at this time.
--- NOTE | 2019-09-26 07:29 | HMH.EDLOEX ---
ED Disposition Clinical Impression: DVT (deep venous thrombosis) Qualifiers: DVT location: lower extremity Affected thrombotic vein of extremity: femoral Chronicity: acute Laterality: left Qualified Code(s): I82.412 - Acute embolism and thrombosis of left femoral vein Disposition: Home, Self-Care Condition on Discharge: Good Instructions: DI for Deep Vein Thrombosis Additional Instructions: use meds as directed and see pcp next week Referrals: Quentin Hernandez MD [Primary Care Provider] - - Critical Care Critical Care Time: No Attestation: On 09/26/19, the high probability of a clinically significant, sudden or life threatening deterioration of the following system(s) required my full and direct attention, intervention and personal management. The time I documented below is in addition to time spent performing reported procedures but includes the following listed in this critical care notation. Medical Decision Making - Medical Records Medical records reviewed: Yes: I reviewed the patient's medical records. - Dale Inquiry Pt receiving controlled substance: No Vital Signs: 09/26/19 05:36 09/26/19 06:32 Temperature 98.1 F Temperature Source Oral Pulse Rate [Right Brachial] 95 H 88 Respiratory Rate 16 16 Blood Pressure [Right Arm] 141/88 H 131/86 Blood Pressure Mean [Right Arm] 105 101 Blood Pressure Source [Right Arm] Automatic Cuff Automatic Cuff Blood Pressure Position [Right Arm] Sitting Sitting 02 Sat by Pulse Oximetry 96 97 Oxygen Delivery Method Room Air Room Air - Lab Data Lab results reviewed: Yes: I reviewed the patient's lab results. Lab Results 09/26/19 05:57: WBC 9.9, RBC 5.06, Hgb 14.4, Hct 43.2, MCV 85.2, MCH 28.4, MCHC 33.4, RDW 13.3, Plt Count 203, MPV 8.1, Neut % (Auto) 71.1, Lymph % (Auto) 16.8, Hamblen % (Auto) 6.9, Eos % (Auto) 4.7, Baso % (Auto) 0.6, Neut # (Auto) 7.1, Lymph # (Auto) 1.7, Hamblen # (Auto) 0.7, Eos # (Auto) 0.5 H, Baso # (Auto) 0.1, ESR 19 H 09/26/19 05:57: Sodium 138, Potassium 3.9, Chloride 103, Carbon Dioxide 28, Anion Gap 10.9, BUN 14, Creatinine 1.00, Estimated Creat Clear 145, Estimated GFR 80, Est GFR ( Amer) 97, Glucose 111 H, Calcium 9.1, Total Bilirubin 0.6, AST 31, ALT 53, Alkaline Phosphatase 84, C-Reactive Protein 15.0 H, Total Protein 7.2, Albumin 3.9, Globulin 3.3 H, Albumin/Globulin Ratio 1.2 Result diagrams: 09/26/19 05:57 09/26/19 05:57 - US Data US Images: Lower Extremity ED US Reviewed: Yes: I have viewed radiologist's interpretation Findings Narrative: positive dvt Lower Extremity Injury HPI - General Chief Complaint: Extremity Injury, Lower Stated Complaint: Right leg swollen and painful no injury Time Seen by Provider: 09/26/19 06:00 Mode of Arrival: Ambulatory Source of Information: Patient, Medical Record Limitations: No Limitations Description of Symptoms (Recalled from ER Triage Doc. by RN): Patient reports an aching pain in his right calf. Patient reprots no known injuries and that the pain just started when he woke up around 0430 to go to the bathroom. Patient reports he has a hx of clots in that same leg back in 2014. - History of Present Illness HPI Narrative: pain to rt lower leg with hx of dvt MD complaint: other (no injury) Onset (ago): day(s) Place: home Severity: moderate Context: other (possible dvt ) Other symptoms: none - Related Data Home Medications Medication Instructions Recorded Confirmed Budesonide [Budesonide EC] 9 mg PO DAILY 07/16/19 09/26/19 Previous Rx's Medication Instructions Recorded bupropion HCl 150 mg tablet,12 hr 150 mg PO BID #180 tab 02/25/19 sustained-release Allergies Allergy/AdvReac Type Severity Reaction Status Date / Time ciprofloxacin [From Cipro] Allergy Unknown GI UPSET Verified 09/26/19 05:47 metronidazole Allergy Unknown I-HIVES Verified 09/26/19 05:47 [facility] History - Hepatitis A Screen Drug use history?: No High risk sexual behaviors
[2019-09-26 08:06] VITALS: BP 131/86; PULSE 88; RESP 16; TEMP 36.7; O2SAT 97
== END 2019-09-26 08:08 | disposition home or self-care (01) ==
PROVIDERS: Emergency Provider Emergency Medicine; PCP Emergency Medicine
DX: I82.412 Acute embolism and thrombosis of left femoral vein (principal)
CPT/HCPCS: 80053; 85025; 85651; 86140; 93971; 96372; 99283

== ENCOUNTER 2019-10-22 12:45 | Outpatient (CLI) | payer BC, SELFPAY ==
[2019-10-22 12:56] VITALS: BMI 34.0
[2019-10-22 13:08] LABS: Basophils # 0.1 K/mm3 (0-0.2); Basophils % 0.6 % (0.1-2.0); Eosinophils # 0.5 K/mm3 (0.0-0.4); Eosinophils % 6.6 % (0.1-12.0); Hematocrit 42.1 % (42.0-52.0); Lymphocytes # 1.5 K/mm3 (0.7-4.5); Lymphocytes % 19.3 % (10-50); Mean Corpuscular HGB Conc 33.3 g/dL (31.8-35.4); Mean Corpuscular Hemoglobin 28.5 pg (27.0-31.2); Mean Corpuscular Volume 85.6 fl (80-94); Mean Platelet Volume 8.6 fl (7.4-10.4); Monocytes # 0.4 K/mm3 (0.1-1.0); Monocytes % 5.1 % (1.7-9.3); Neutrophils # 5.3 K/mm3 (1.8-7.8); Neutrophils % 68.4 % (37.0-80.0); Platelet Count 214 K/mm3 (142-424); Red Blood Count 4.91 M/mm3 (4.60-6.20); Red Cell Distribution Width 14.1 % (11.5-17.5); White Blood Count 7.8 K/mm3 (4.8-10.8)
[2019-10-22 13:11] LABS: Chloride 103 mmol/L (98-107); Potassium 3.6 mmoL/L (3.5-5.1); Sodium 140 mmol/L (136-145)
[2019-10-22 13:13] LABS: Blood Urea Nitrogen 9 mg/dl (9-20); Creatinine Clearance Estimated 114 mL/min (50-200); Estimated Glomerular Filt Rate 59 ml/min (>60); GFR (African American) 72 ML/MIN (>60)
[2019-10-22 13:14] LABS: Alanine Aminotransferase 48 U/L (12-78); Albumin Level 3.8 g/dl (3.5-5.0); Albumin/Globulin Ratio 1.1 (1.1-1.8); Alkaline Phosphatase 105 U/L (38-126); Anion Gap 11.6 mEq/L (5-15); Aspartate Amino Transferase 40 U/L (17-59); Bilirubin,Total 0.7 mg/dl (0.2-1.3); Calcium 9.1 mg/dl (8.4-10.2); Carbon Dioxide 29 mmol/L (22.0-30.0); Globulin 3.5 g/dL (1.3-3.2); Glucose 140 mg/dl (74-100); Total Protein,Serum 7.3 g/dl (6.3-8.2)
[2019-10-22 13:15] VITALS: BP 128/95; PULSE 85; RESP 18; TEMP 36.8; O2SAT 99
[2019-10-22 13:19] LABS: C-Reactive Protein 11.3 mg/L (0-4)
[2019-10-22 13:45] VITALS: BP 124/89; PULSE 88; RESP 18; O2SAT 98
[2019-10-22 13:56] VITALS: BP 133/85; PULSE 83; RESP 18; O2SAT 99
== END 2019-10-22 13:57 | disposition home or self-care (01) ==
LOC: INF 12:53
PROVIDERS: Visit Provider Physician Assistant
DX: K50.90 Crohn's disease, unspecified, without complications (principal)
CPT/HCPCS: 80053; 85025; 86140; 96413; J3380

== ENCOUNTER 2019-12-17 13:52 | Outpatient (CLI) | payer BC, MEDICARE, SELFPAY ==
[2019-12-17 13:54] VITALS: BMI 33.9
[2019-12-17 14:12] LABS: Basophils % 0.5 % (0.1-2.0); Eosinophils # 0.4 K/mm3 (0.0-0.4); Eosinophils % 5.8 % (0.1-12.0); Hematocrit 38.9 % (42.0-52.0); Hemoglobin 13.1 g/dL (14.1-18.0); Lymphocytes # 1.5 K/mm3 (0.7-4.5); Lymphocytes % 20.2 % (10-50); Mean Corpuscular HGB Conc 33.6 g/dL (31.8-35.4); Mean Corpuscular Volume 86.2 fl (80-94); Monocytes # 0.5 K/mm3 (0.1-1.0); Monocytes % 6.7 % (1.7-9.3); Neutrophils # 4.9 K/mm3 (1.8-7.8); Neutrophils % 66.8 % (37.0-80.0); Platelet Count 217 K/mm3 (142-424); Red Blood Count 4.51 M/mm3 (4.60-6.20); Red Cell Distribution Width 14.1 % (11.5-17.5); White Blood Count 7.3 K/mm3 (4.8-10.8)
[2019-12-17 14:25] LABS: Alanine Aminotransferase 33 U/L (12-78); Albumin Level 3.8 g/dl (3.5-5.0); Albumin/Globulin Ratio 1.1 (1.1-1.8); Alkaline Phosphatase 89 U/L (38-126); Anion Gap 10.4 mEq/L (5-15); Aspartate Amino Transferase 27 U/L (17-59); Bilirubin,Total 0.6 mg/dl (0.2-1.3); Blood Urea Nitrogen 11 mg/dl (9-20); Calcium 8.8 mg/dl (8.4-10.2); Carbon Dioxide 33 mmol/L (22.0-30.0); Chloride 101 mmol/L (98-107); Creatinine Clearance Estimated 123 mL/min (50-200); Estimated Glomerular Filt Rate 65 ml/min (>60); GFR (African American) 79 ML/MIN (>60); Globulin 3.6 g/dL (1.3-3.2); Glucose 92 mg/dl (74-100); Potassium 3.4 mmoL/L (3.5-5.1); Sodium 141 mmol/L (136-145); Total Protein,Serum 7.4 g/dl (6.3-8.2)
[2019-12-17 14:31] LABS: C-Reactive Protein 8.9 mg/L (0-4)
[2019-12-17 14:35] VITALS: BP 147/91; PULSE 78; RESP 18; O2SAT 98
[2019-12-17 14:51] LABS: Coronavirus 19 IgG Antibody Negative (Negative); Coronavirus 19 IgM Antibody Negative (Negative)
[2019-12-17 15:15] VITALS: BP 146/96; PULSE 81; RESP 18; O2SAT 96
== END 2019-12-17 15:15 | disposition home or self-care (01) ==
LOC: INF 13:52
PROVIDERS: Emergency Medicine; Visit Provider Physician Assistant
DX: Z03.818 Encounter for observation for suspected exposure to other biological agents ruled out (principal); K50.90 Crohn's disease, unspecified, without complications
CPT/HCPCS: 80053; 85025; 86140; 86328; 96413; J3380

== ENCOUNTER 2020-02-10 11:38 | Outpatient (CLI) | payer BC, MEDICARE, SELFPAY ==
[2020-02-10 11:41] VITALS: BMI 34.4
[2020-02-10 12:03] LABS: Basophils # 0.1 K/mm3 (0-0.2); Basophils % 0.8 % (0.1-2.0); Eosinophils # 0.6 K/mm3 (0.0-0.4); Eosinophils % 8.3 % (0.1-12.0); Hematocrit 39.3 % (42.0-52.0); Hemoglobin 13.4 g/dL (14.1-18.0); Lymphocytes # 1.5 K/mm3 (0.7-4.5); Lymphocytes % 19.1 % (10-50); Mean Corpuscular Hemoglobin 29.1 pg (27.0-31.2); Mean Corpuscular Volume 85.6 fl (80-94); Mean Platelet Volume 7.6 fl (7.4-10.4); Monocytes # 0.6 K/mm3 (0.1-1.0); Monocytes % 7.2 % (1.7-9.3); Neutrophils % 64.6 % (37.0-80.0); Platelet Count 221 K/mm3 (142-424); Red Blood Count 4.59 M/mm3 (4.60-6.20); Red Cell Distribution Width 14.2 % (11.5-17.5); White Blood Count 7.7 K/mm3 (4.8-10.8)
[2020-02-10 12:10] VITALS: BP 125/74; PULSE 79; RESP 20; TEMP 36.9; O2SAT 95
[2020-02-10 12:15] LABS: Chloride 103 mmol/L (98-107); Potassium 4.5 mmoL/L (3.5-5.1); Sodium 137 mmol/L (136-145)
[2020-02-10 12:17] LABS: Alanine Aminotransferase 68 U/L (12-78); Aspartate Amino Transferase 48 U/L (17-59); Blood Urea Nitrogen 17 mg/dl (9-20); Creatinine Clearance Estimated 125 mL/min (50-200); Estimated Glomerular Filt Rate 65 ml/min (>60); GFR (African American) 79 ML/MIN (>60)
[2020-02-10 12:18] LABS: Albumin Level 3.7 g/dl (3.5-5.0); Albumin/Globulin Ratio 1.1 (1.1-1.8); Alkaline Phosphatase 109 U/L (38-126); Anion Gap 12.5 mEq/L (5-15); Bilirubin,Total 0.7 mg/dl (0.2-1.3); Calcium 9.2 mg/dl (8.4-10.2); Carbon Dioxide 26 mmol/L (22.0-30.0); Globulin 3.5 g/dL (1.3-3.2); Glucose 131 mg/dl (74-100); Total Protein,Serum 7.2 g/dl (6.3-8.2)
[2020-02-10 12:23] LABS: C-Reactive Protein 8.8 mg/L (0-4)
[2020-02-10 12:45] VITALS: BP 125/74; PULSE 74; RESP 20; TEMP 37.1; O2SAT 95
== END 2020-02-10 12:50 | disposition home or self-care (01) ==
LOC: INF 11:38
PROVIDERS: Visit Provider Physician Assistant
DX: K50.90 Crohn's disease, unspecified, without complications (principal)
CPT/HCPCS: 80053; 85025; 86140; 96413; J3380

== ENCOUNTER 2020-04-07 12:00 | Outpatient (CLI) | payer BC, MEDICARE, SELFPAY ==
[2020-04-07 12:04] VITALS: BMI 33.9
[2020-04-07 12:25] VITALS: BP 121/79; PULSE 83; RESP 18; TEMP 36.4; O2SAT 99
[2020-04-07 12:26] LABS: Chloride 106 mmol/L (98-107); Potassium 3.6 mmoL/L (3.5-5.1); Sodium 139 mmol/L (136-145)
[2020-04-07 12:28] LABS: Alanine Aminotransferase 35 U/L (12-78); Aspartate Amino Transferase 30 U/L (17-59); Blood Urea Nitrogen 14 mg/dl (9-20); Creatinine Clearance Estimated 122 mL/min (50-200); Estimated Glomerular Filt Rate 65 ml/min (>60); GFR (African American) 79 ML/MIN (>60)
[2020-04-07 12:29] LABS: Albumin Level 3.7 g/dl (3.5-5.0); Albumin/Globulin Ratio 1.2 (1.1-1.8); Alkaline Phosphatase 87 U/L (38-126); Anion Gap 9.6 mEq/L (5-15); Bilirubin,Total 0.6 mg/dl (0.2-1.3); Calcium 8.5 mg/dl (8.4-10.2); Carbon Dioxide 27 mmol/L (22.0-30.0); Globulin 3.1 g/dL (1.3-3.2); Glucose 109 mg/dl (74-100); Total Protein,Serum 6.8 g/dl (6.3-8.2)
[2020-04-07 12:30] LABS: Basophils # 0.1 K/mm3 (0-0.2); Basophils % 0.9 % (0.1-2.0); Eosinophils # 0.4 K/mm3 (0.0-0.4); Hematocrit 39.3 % (42.0-52.0); Hemoglobin 12.2 g/dL (14.1-18.0); Lymphocytes # 1.4 K/mm3 (0.7-4.5); Lymphocytes % 23.3 % (10-50); Mean Corpuscular HGB Conc 31.1 g/dL (31.8-35.4); Mean Corpuscular Hemoglobin 26.9 pg (27.0-31.2); Mean Corpuscular Volume 86.2 fl (80-94); Mean Platelet Volume 7.1 fl (7.4-10.4); Monocytes # 0.5 K/mm3 (0.1-1.0); Neutrophils # 3.7 K/mm3 (1.8-7.8); Neutrophils % 61.8 % (37.0-80.0); Platelet Count 211 K/mm3 (142-424); Red Blood Count 4.55 M/mm3 (4.60-6.20); Red Cell Distribution Width 13.6 % (11.5-17.5)
[2020-04-07 12:35] LABS: C-Reactive Protein 6.3 mg/L (0-4)
[2020-04-07 13:01] VITALS: BP 134/75; PULSE 88; RESP 18
== END 2020-04-07 13:01 | disposition home or self-care (01) ==
LOC: INF 12:04
PROVIDERS: Visit Provider Physician Assistant
DX: K50.918 Crohn's disease, unspecified, with other complication (principal)
CPT/HCPCS: 80053; 85025; 86140; 96413; J3380

== ENCOUNTER 2020-06-03 11:29 | Outpatient (CLI) | payer BC, MEDICARE, SELFPAY ==
[2020-06-03 11:36] VITALS: BMI 34.2
[2020-06-03 12:01] LABS: Basophils # 0.1 K/mm3 (0-0.2); Basophils % 1.1 % (0.1-2.0); Eosinophils # 0.6 K/mm3 (0.0-0.4); Eosinophils % 7.8 % (0.1-12.0); Hematocrit 39.9 % (42.0-52.0); Hemoglobin 12.8 g/dL (14.1-18.0); Lymphocytes # 1.7 K/mm3 (0.7-4.5); Lymphocytes % 23.8 % (10-50); Mean Corpuscular HGB Conc 32.2 g/dL (31.8-35.4); Mean Corpuscular Hemoglobin 27.8 pg (27.0-31.2); Mean Corpuscular Volume 86.5 fl (80-94); Mean Platelet Volume 7.3 fl (7.4-10.4); Monocytes # 0.5 K/mm3 (0.1-1.0); Neutrophils # 4.3 K/mm3 (1.8-7.8); Neutrophils % 60.4 % (37.0-80.0); Platelet Count 190 K/mm3 (142-424); Red Blood Count 4.61 M/mm3 (4.60-6.20); Red Cell Distribution Width 13.9 % (11.5-17.5); White Blood Count 7.1 K/mm3 (4.8-10.8)
[2020-06-03 12:04] VITALS: BP 122/80; PULSE 73; RESP 18; TEMP 36.5; O2SAT 100
[2020-06-03 12:06] LABS: Chloride 102 mmol/L (98-107)
[2020-06-03 12:07] LABS: Potassium 3.9 mmoL/L (3.5-5.1); Sodium 138 mmol/L (136-145)
[2020-06-03 12:09] LABS: Alanine Aminotransferase 37 U/L (12-78); Alkaline Phosphatase 98 U/L (38-126); Aspartate Amino Transferase 29 U/L (17-59); Bilirubin,Total 0.5 mg/dl (0.2-1.3); Blood Urea Nitrogen 21 mg/dl (9-20); Creatinine Clearance Estimated 105 mL/min (50-200); Estimated Glomerular Filt Rate 54 ml/min (>60); GFR (African American) 66 ML/MIN (>60)
[2020-06-03 12:10] LABS: Albumin/Globulin Ratio 1.2 (1.1-1.8); Anion Gap 11.9 mEq/L (5-15); Calcium 9.3 mg/dl (8.4-10.2); Carbon Dioxide 28 mmol/L (22.0-30.0); Globulin 3.4 g/dL (1.3-3.2); Glucose 119 mg/dl (74-100); Total Protein,Serum 7.4 g/dl (6.3-8.2)
[2020-06-03 12:15] LABS: C-Reactive Protein 5.6 mg/L (0-4)
[2020-06-03 12:50] VITALS: BP 120/75; PULSE 78; RESP 16; TEMP 36.6; O2SAT 99
== END 2020-06-03 12:50 | disposition home or self-care (01) ==
LOC: INF 11:29
PROVIDERS: Visit Provider Physician Assistant
DX: K50.90 Crohn's disease, unspecified, without complications (principal)
CPT/HCPCS: 80053; 85025; 86140; 96413; J3380

== ENCOUNTER 2020-08-11 09:23 | Outpatient (CLI) | payer BC, MEDICARE, SELFPAY ==
[2020-08-11 09:26] VITALS: BMI 34.2
[2020-08-11 09:55] LABS: Basophils # 0.1 K/mm3 (0-0.2); Basophils % 0.6 % (0.1-2.0); Eosinophils # 0.4 K/mm3 (0.0-0.4); Eosinophils % 5.8 % (0.1-12.0); Hematocrit 38.6 % (42.0-52.0); Hemoglobin 12.8 g/dL (14.1-18.0); Lymphocytes # 1.6 K/mm3 (0.7-4.5); Lymphocytes % 21.6 % (10-50); Mean Corpuscular HGB Conc 33.1 g/dL (31.8-35.4); Mean Corpuscular Hemoglobin 27.9 pg (27.0-31.2); Mean Corpuscular Volume 84.3 fl (80-94); Mean Platelet Volume 7.8 fl (7.4-10.4); Monocytes # 0.5 K/mm3 (0.1-1.0); Monocytes % 6.8 % (1.7-9.3); Neutrophils # 4.9 K/mm3 (1.8-7.8); Neutrophils % 65.2 % (37.0-80.0); Platelet Count 197 K/mm3 (142-424); Red Blood Count 4.58 M/mm3 (4.60-6.20); Red Cell Distribution Width 14.3 % (11.5-17.5); White Blood Count 7.5 K/mm3 (4.8-10.8)
[2020-08-11 09:59] LABS: Chloride 105 mmol/L (98-107); Sodium 140 mmol/L (136-145)
[2020-08-11 10:01] LABS: Blood Urea Nitrogen 13 mg/dl (9-20); Creatinine Clearance Estimated 123 mL/min (50-200); Estimated Glomerular Filt Rate 65 ml/min (>60); GFR (African American) 79 ML/MIN (>60)
[2020-08-11 10:02] LABS: Alanine Aminotransferase 26 U/L (12-78); Albumin Level 3.7 g/dl (3.5-5.0); Albumin/Globulin Ratio 1.1 (1.1-1.8); Alkaline Phosphatase 79 U/L (38-126); Aspartate Amino Transferase 24 U/L (17-59); Bilirubin,Total 0.6 mg/dl (0.2-1.3); Carbon Dioxide 29 mmol/L (22.0-30.0); Globulin 3.5 g/dL (1.3-3.2); Glucose 130 mg/dl (74-100); Total Protein,Serum 7.2 g/dl (6.3-8.2)
[2020-08-11 10:08] LABS: C-Reactive Protein 4.9 mg/L (0-4)
[2020-08-11 10:12] VITALS: BP 136/99; PULSE 78; RESP 18; TEMP 36.3; O2SAT 98
[2020-08-11 10:55] VITALS: BP 150/91; PULSE 81; RESP 18
== END 2020-08-11 10:55 | disposition home or self-care (01) ==
LOC: INF 09:23
PROVIDERS: Visit Provider Physician Assistant
DX: K50.90 Crohn's disease, unspecified, without complications (principal)
CPT/HCPCS: 80053; 85025; 86140; 96413; J3380

== ENCOUNTER → 2020-09-21 08:34 | Outpatient (POV) | payer BC, MEDICARE, SELFPAY | PROVIDERS: Visit Provider Dermatology | DX: Z00.00 Encounter for general adult medical examination without abnormal findings (principal) ==

== ENCOUNTER 2020-10-06 10:10 | Outpatient (CLI) | payer BC, MEDICARE, SELFPAY ==
[2020-10-06 10:15] VITALS: BMI 34.3
[2020-10-06 10:45] LABS: Basophils # 0.1 K/mm3 (0-0.2); Basophils % 0.8 % (0.1-2.0); Eosinophils # 0.5 K/mm3 (0.0-0.4); Eosinophils % 5.9 % (0.1-12.0); Hematocrit 37.3 % (42.0-52.0); Hemoglobin 12.4 g/dL (14.1-18.0); Lymphocytes # 1.8 K/mm3 (0.7-4.5); Lymphocytes % 23.2 % (10-50); Mean Corpuscular HGB Conc 33.2 g/dL (31.8-35.4); Mean Corpuscular Volume 84.3 fl (80-94); Monocytes # 0.4 K/mm3 (0.1-1.0); Monocytes % 5.8 % (1.7-9.3); Neutrophils # 4.9 K/mm3 (1.8-7.8); Neutrophils % 64.4 % (37.0-80.0); Platelet Count 192 K/mm3 (142-424); Red Blood Count 4.43 M/mm3 (4.60-6.20); Red Cell Distribution Width 14.4 % (11.5-17.5); White Blood Count 7.6 K/mm3 (4.8-10.8)
[2020-10-06 10:50] VITALS: BP 129/101; PULSE 74; RESP 18; TEMP 36.5; O2SAT 98
[2020-10-06 10:54] LABS: Chloride 104 mmol/L (98-107); Potassium 4.1 mmoL/L (3.5-5.1); Sodium 138 mmol/L (136-145)
[2020-10-06 10:57] LABS: Alanine Aminotransferase 49 U/L (12-78); Albumin Level 3.9 g/dl (3.5-5.0); Albumin/Globulin Ratio 1.3 (1.1-1.8); Alkaline Phosphatase 87 U/L (38-126); Anion Gap 10.1 mEq/L (5-15); Aspartate Amino Transferase 33 U/L (17-59); Bilirubin,Total 0.5 mg/dl (0.2-1.3); Blood Urea Nitrogen 13 mg/dl (9-20); Calcium 9.1 mg/dl (8.4-10.2); Carbon Dioxide 28 mmol/L (22.0-30.0); Creatinine Clearance Estimated 135 mL/min (50-200); Estimated Glomerular Filt Rate 72 ml/min (>60); GFR (African American) 87 ML/MIN (>60); Globulin 3.1 g/dL (1.3-3.2); Glucose 118 mg/dl (74-100)
[2020-10-06 11:03] LABS: C-Reactive Protein 4.4 mg/L (0-4)
[2020-10-06 11:25] VITALS: BP 137/89; PULSE 74; RESP 18
[2020-10-10 10:37] LABS: QuantiFERON-TB Gold Plus Negative (Negative)
== END 2020-10-06 11:40 | disposition home or self-care (01) ==
LOC: INF 10:12
PROVIDERS: Visit Provider Physician Assistant
DX: K50.919 Crohn's disease, unspecified, with unspecified complications (principal)
CPT/HCPCS: 80053; 85025; 86140; 86480; 96413; J3380

== ENCOUNTER 2020-12-03 13:40 | Outpatient (CLI) | payer BC, MEDICARE, SELFPAY ==
[2020-12-03 13:54] VITALS: BMI 33.0
[2020-12-03 14:05] LABS: Basophils # 0.1 K/mm3 (0-0.2); Basophils % 0.9 % (0.1-2.0); Eosinophils # 0.5 K/mm3 (0.0-0.4); Eosinophils % 6.7 % (0.1-12.0); Hematocrit 39.1 % (42.0-52.0); Hemoglobin 13.5 g/dL (14.1-18.0); Lymphocytes # 2.1 K/mm3 (0.7-4.5); Lymphocytes % 26.3 % (10-50); Mean Corpuscular HGB Conc 34.5 g/dL (31.8-35.4); Mean Corpuscular Hemoglobin 27.9 pg (27.0-31.2); Mean Corpuscular Volume 80.7 fl (80-94); Mean Platelet Volume 7.9 fl (7.4-10.4); Monocytes # 0.5 K/mm3 (0.1-1.0); Monocytes % 6.4 % (1.7-9.3); Neutrophils # 4.7 K/mm3 (1.8-7.8); Neutrophils % 59.7 % (37.0-80.0); Platelet Count 201 K/mm3 (142-424); Red Blood Count 4.85 M/mm3 (4.60-6.20); Red Cell Distribution Width 14.7 % (11.5-17.5); White Blood Count 7.9 K/mm3 (4.8-10.8)
[2020-12-03 14:07] LABS: Chloride 107 mmol/L (98-107); Sodium 141 mmol/L (136-145)
[2020-12-03 14:10] LABS: Alanine Aminotransferase 36 U/L (12-78); Albumin Level 4.2 g/dl (3.5-5.0); Albumin/Globulin Ratio 1.2 (1.1-1.8); Alkaline Phosphatase 94 U/L (38-126); Aspartate Amino Transferase 31 U/L (17-59); Bilirubin,Total 0.7 mg/dl (0.2-1.3); Blood Urea Nitrogen 13 mg/dl (9-20); Calcium 8.8 mg/dl (8.4-10.2); Carbon Dioxide 27 mmol/L (22.0-30.0); Creatinine Clearance Estimated 122 mL/min (50-200); Estimated Glomerular Filt Rate 65 ml/min (>60); GFR (African American) 79 ML/MIN (>60); Globulin 3.4 g/dL (1.3-3.2); Glucose 102 mg/dl (74-100); Total Protein,Serum 7.6 g/dl (6.3-8.2)
[2020-12-03 14:19] VITALS: BP 144/95; PULSE 79; RESP 17; TEMP 36.8; O2SAT 96
[2020-12-03 14:38] VITALS: BP 136/99; PULSE 79; RESP 17; O2SAT 97
[2020-12-03 14:47] LABS: C-Reactive Protein 4.1 mg/L (0-4)
[2020-12-03 15:15] VITALS: BP 141/68; PULSE 84; RESP 17; O2SAT 97
== END 2020-12-03 15:17 | disposition home or self-care (01) ==
LOC: INF 13:49
PROVIDERS: Visit Provider Physician Assistant
DX: K50.919 Crohn's disease, unspecified, with unspecified complications (principal)
CPT/HCPCS: 80053; 85025; 86140; 96413; J3380

== ENCOUNTER → 2020-12-07 13:44 | Outpatient (CLI) | payer BC, MEDICARE, SELFPAY ==
--- NOTE | 2020-12-07 13:45 | CA_ITS ---
APPROVED REPORT Bilateral Lower Extremity Venous Study for DVT. Calker: ASHLEY Indications Lower Extremity Pain: Right Lower Extremity Swelling: Right pain and swelling RLE; DVT X 2 Past History DVT : Right Vein Imaging CFV (R): compressive, spontaneous, phasic, augmentation SFJ (R): compressive, spontaneous, phasic, augmentation FEM (R): compressive, spontaneous, phasic, augmentation POP (R): compressive, spontaneous, phasic, augmentation PTV (R): compressive, spontaneous, phasic, augmentation GSV (R): compressive, spontaneous, phasic, augmentation Peroneals (R):compressive, spontaneous, phasic, augmentation GAS (R): compressive, spontaneous, phasic, augmentation Findings No evidence of DVT or SVT of the right lower extremity veins. Conclusion No evidence of DVT or SVT of the right lower extremity veins. Electronically signed by : Alan Clark MD 12/07/2020 16:14:43
== END ==
PROVIDERS: PCP Emergency Medicine; Visit Provider Physician Assistant
DX: M79.604 Pain in right leg (principal); M79.89 Other specified soft tissue disorders
CPT/HCPCS: 93971

== ENCOUNTER 2021-01-28 09:28 | Outpatient (CLI) | payer BC, MEDICARE, SELFPAY ==
[2021-01-28 09:35] VITALS: BMI 34.8
[2021-01-28 10:14] LABS: Basophils # 0.1 K/mm3 (0-0.2); Basophils % 0.9 % (0.1-2.0); Eosinophils # 0.6 K/mm3 (0.0-0.4); Eosinophils % 7.3 % (0.1-12.0); Hematocrit 41.7 % (42.0-52.0); Hemoglobin 13.4 g/dL (14.1-18.0); Lymphocytes % 25.1 % (10-50); Mean Corpuscular HGB Conc 32.1 g/dL (31.8-35.4); Mean Corpuscular Hemoglobin 28.4 pg (27.0-31.2); Mean Corpuscular Volume 88.5 fl (80-94); Mean Platelet Volume 9.3 fl (7.4-10.4); Monocytes # 0.6 K/mm3 (0.1-1.0); Monocytes % 7.5 % (1.7-9.3); Neutrophils # 4.7 K/mm3 (1.8-7.8); Neutrophils % 59.1 % (37.0-80.0); Platelet Count 196 K/mm3 (142-424); Red Blood Count 4.71 M/mm3 (4.60-6.20); Red Cell Distribution Width 14.9 % (11.5-17.5); White Blood Count 7.9 K/mm3 (4.8-10.8)
[2021-01-28 10:15] VITALS: BP 134/94; PULSE 83; RESP 18; O2SAT 97
[2021-01-28 10:20] LABS: Chloride 103 mmol/L (98-107); Potassium 3.8 mmoL/L (3.5-5.1); Sodium 140 mmol/L (136-145)
[2021-01-28 10:23] LABS: Alanine Aminotransferase 75 U/L (12-78); Albumin Level 3.7 g/dl (3.5-5.0); Albumin/Globulin Ratio 1.2 (1.1-1.8); Alkaline Phosphatase 92 U/L (38-126); Anion Gap 10.8 mEq/L (5-15); Aspartate Amino Transferase 44 U/L (17-59); Bilirubin,Total 0.6 mg/dl (0.2-1.3); Blood Urea Nitrogen 11 mg/dl (9-20); Calcium 8.8 mg/dl (8.4-10.2); Carbon Dioxide 30 mmol/L (22.0-30.0); Creatinine Clearance Estimated 125 mL/min (50-200); Estimated Glomerular Filt Rate 65 ml/min (>60); GFR (African American) 79 ML/MIN (>60); Globulin 3.1 g/dL (1.3-3.2); Glucose 107 mg/dl (74-100); Total Protein,Serum 6.8 g/dl (6.3-8.2)
[2021-01-28 10:29] LABS: C-Reactive Protein 7.6 mg/L (0-4)
[2021-01-28 10:54] VITALS: BP 139/89; PULSE 81; RESP 18
== END 2021-01-28 10:54 | disposition home or self-care (01) ==
LOC: INF 09:30
PROVIDERS: PCP Emergency Medicine; Visit Provider Physician Assistant
DX: K50.90 Crohn's disease, unspecified, without complications (principal)
CPT/HCPCS: 80053; 85025; 86140; 96413; J3380

== ENCOUNTER 2021-03-25 10:12 | Outpatient (CLI) | payer BC, MEDICARE, SELFPAY ==
[2021-03-25 10:23] VITALS: BMI 33.9
[2021-03-25 10:45] LABS: Basophils # 0.1 K/mm3 (0-0.2); Basophils % 0.9 % (0.1-2.0); Eosinophils # 0.5 K/mm3 (0.0-0.4); Eosinophils % 6.2 % (0.1-12.0); Hematocrit 40.5 % (42.0-52.0); Hemoglobin 13.5 g/dL (14.1-18.0); Lymphocytes # 1.7 K/mm3 (0.7-4.5); Lymphocytes % 22.4 % (10-50); Mean Corpuscular HGB Conc 33.4 g/dL (31.8-35.4); Mean Platelet Volume 8.5 fl (7.4-10.4); Monocytes # 0.5 K/mm3 (0.1-1.0); Monocytes % 5.9 % (1.7-9.3); Neutrophils # 4.9 K/mm3 (1.8-7.8); Neutrophils % 64.4 % (37.0-80.0); Platelet Count 207 K/mm3 (142-424); Red Blood Count 4.65 M/mm3 (4.60-6.20); Red Cell Distribution Width 14.2 % (11.5-17.5); White Blood Count 7.6 K/mm3 (4.8-10.8)
[2021-03-25 11:00] LABS: Chloride 100 mmol/L (98-107); Potassium 3.8 mmoL/L (3.5-5.1); Sodium 137 mmol/L (136-145)
[2021-03-25 11:02] LABS: Blood Urea Nitrogen 10 mg/dl (9-20); Creatinine Clearance Estimated 145 mL/min (50-200); Estimated Glomerular Filt Rate 80 ml/min (>60); GFR (African American) 97 ML/MIN (>60)
[2021-03-25 11:03] LABS: Alanine Aminotransferase 88 U/L (12-78); Albumin Level 3.9 g/dl (3.5-5.0); Albumin/Globulin Ratio 1.2 (1.1-1.8); Alkaline Phosphatase 98 U/L (38-126); Anion Gap 10.8 mEq/L (5-15); Aspartate Amino Transferase 45 U/L (17-59); Bilirubin,Total 0.6 mg/dl (0.2-1.3); Carbon Dioxide 30 mmol/L (22.0-30.0); Globulin 3.2 g/dL (1.3-3.2); Total Protein,Serum 7.1 g/dl (6.3-8.2)
[2021-03-25 11:04] LABS: Calcium 8.9 mg/dl (8.4-10.2); Glucose 122 mg/dl (74-100)
[2021-03-25 11:10] VITALS: BP 150/101; PULSE 78; RESP 18; TEMP 36.7
[2021-03-25 11:12] LABS: C-Reactive Protein 6.6 mg/L (0-4)
[2021-03-25 11:25] VITALS: BP 139/80; PULSE 80; RESP 18
[2021-03-25 11:40] VITALS: BP 147/95; PULSE 80; RESP 18
== END 2021-03-25 12:00 | disposition home or self-care (01) ==
LOC: INF 10:16
PROVIDERS: PCP Emergency Medicine; Visit Provider Physician Assistant
DX: K50.90 Crohn's disease, unspecified, without complications (principal)
CPT/HCPCS: 80053; 85025; 86140; 96413; J3380

== ENCOUNTER 2021-05-13 20:04 | Emergency (ER) | payer BC, MEDICARE, SELFPAY ==
[2021-05-13 20:10] VITALS: BP 161/101; PULSE 92; RESP 20; TEMP 36.8; O2SAT 96; BMI 33.9
--- NOTE | 2021-05-13 20:56 | HMH.EDUTC ---
[facility] [place] Clinical Impression: Bronchitis, Viral syndrome Sinusitis Qualifiers: Sinusitis location: unspecified location Chronicity: acute Recurrence: non-recurrent Qualified Code(s): J01.90 - Acute sinusitis, unspecified Disposition: Home, Self-Care Condition on Discharge: Good Instructions: Acute Bronchitis, DI for Acute Bronchitis Additional Instructions: Drink plenty of fluids. Take tylenol or ibuprofen for pain or fever. Take the medications as directed. Follow up with your regular doctor. GO TO THE ER FOR ANY WORSENING SYMPTOMS Quarantine until you know the results of your covid-19 test. If it is positive, the health department should call you and give you further instructions about your length of Quarantine and other things. Notify your school or workplace of your results and follow their instructions regarding return to work/school. The cough medication (promethazine dm) will make you drowsy, so don't drive or operate heavy machinery after taking it. Prescriptions: Benzonatate [Benzonatate 100mg cap] 100 mg PO TIDP PRN #30 cap PRN Reason: Cough Transmission Status: Received by [facility] methylPREDNISolone [Medrol] 4 mg PO DIRECTED 6 Days #21 packet Transmission Status: Received by [facility] Azithromycin [Z-Nayan 250mg Tab*] 250 mg PO UD DOSE PK #6 tab Transmission Status: Received by [facility] Referrals: Quentin Hernandez MD [Primary Care Provider] - Time of Disposition: 21:14 Medical Decision Making - Medical Records Medical records reviewed: No: I reviewed the patient's medical records. - Dale Inquiry Pt receiving controlled substance: No Vital Signs: 05/13/21 20:10 05/13/21 21:01 Temperature 98.3 F 98.3 F Temperature Source Oral Pulse Rate 92 H Pulse Rate [Right Brachial] 92 H Respiratory Rate 20 20 Blood Pressure 161/101 H Blood Pressure [Right Arm] 161/101 H Blood Pressure Mean [Right Arm] 121 Blood Pressure Source [Right Arm] Automatic Cuff Blood Pressure Position [Right Arm] Sitting 02 Sat by Pulse Oximetry 96 Oxygen Delivery Method Room Air - Lab Data Lab results reviewed: Yes: I reviewed the patient's lab results. Orders (Tests/Meds): ORDERS Category Date Time Status Covid-19 Nasal PCR ([facility]) Routine Lab 05/13/21 21:08 Stop Req Full Resp Panel w/COVID ([facility]) Routine Lab 05/13/21 21:24 Ordered [facility] HPI - General Stated complaint: cough Time Seen by Provider: 05/13/21 20:56 Mode of Arrival: Ambulatory Source of Information: Patient Limitations: No Limitations Description of Symptoms (Recalled from Triage Doc. by RN): PATIENT C/O COUGH AND CONGESTION SINCE YESTERDAY HEENT Symptoms (Recalled from RN notes): Yes Resp Symptoms (Recalled from RN notes): Yes Skin Symptoms (Recalled from RN notes): No MS Symptoms (Recalled from RN notes): No Functional Status (Recalled from RN notes): WNL - History of Present Illness Provider Complaint: He states that he has been feeling bad since yesterday. He has a scratchy sore throat, malaise, and mild chills. He denies any documented fever. He does have a dry cough, but he is not feeling tight or congested in his chest. - Related Data Home Medications Medication Instructions Recorded Confirmed Rivaroxaban [Xarelto] 20 mg PO DAILY 05/13/21 05/13/21 Vedolizumab [Entyvio 300mg vial] 300 mg SQ ONCE 05/13/21 05/13/21 Previous Rx's Medication Instructions Recorded Azithromycin [Z-Nayan 250mg Tab*] 250 mg PO UD DOSE PK #6 tab 05/13/21 Benzonatate [Benzonatate 100mg 100 mg PO TIDP PRN #30 cap 05/13/21 cap] methylPREDNISolone [Medrol] 4 mg PO DIRECTED 6 Days #21 05/13/21 packet Allergies Allergy/AdvReac Type Severity Reaction Status Date / Time ciprofloxacin [From Cipro] Allergy Unknown GI UPSET Verified 12/06/20 13:47 metronidazole Allergy Unknown I-HIVES Verified 12/06/20 13:47 - Worker's Comp Is this a Worker's Comp c
[2021-05-13 21:01] VITALS: BP 161/101; PULSE 92; RESP 20; TEMP 36.8; O2SAT 96
[2021-05-13 21:33] LABS: Adenovirus,PCR Not Detected (NotDetected); Bordetella Pertussis Not Detected (NotDetected); Chlamydophila Pneumoniae, PCR Not Detected (NotDetected); Coronavirus 19, PCR Not Detected (NotDetected); Coronavirus 229E Not Detected (NotDetected); Coronavirus NL63 Not Detected (NotDetected); Coronavirus OC43 Not Detected (NotDetected); Coronovirus HKU1,PCR Not Detected (NotDetected); Human Metapneumovirus Not Detected (NotDetected); Influenza A, PCR Not Detected (NotDetected); Influenza AH1, 2009 Not Detected (NotDetected); Influenza AH1, PCR Not Detected (NotDetected); Influenza AH3,PCR Not Detected (NotDetected); Influenza B, PCR Not Detected (NotDetected); Mycoplasma Pneumoniae, PCR Not Detected (NotDetected); Parainfluenza 1, PCR Not Detected (NotDetected); Parainfluenza 2, PCR Not Detected (NotDetected); Parainfluenza 4, PCR Not Detected (NotDetected); Respiratory Syncytial Virus Not Detected (NotDetected); Rhinovirus/Enterovirus Not Detected (NotDetected)
[2021-05-14 01:42] LABS: Parainfluenza 3, PCR Detected (NotDetected)
== END 2021-05-13 21:17 | disposition home or self-care (01) ==
PROVIDERS: Emergency Provider Nurse Practitioner Family; PCP Emergency Medicine
DX: J20.9 Acute bronchitis, unspecified (principal); J01.90 Acute sinusitis, unspecified; Z86.718 Personal history of other venous thrombosis and embolism
CPT/HCPCS: 87581; 87632; 87798; 99203; C9803; G0463; U0003; U0005

== ENCOUNTER 2021-05-18 10:07 | Emergency (ER) | payer BC, MEDICARE, SELFPAY ==
[2021-05-18 10:10] VITALS: BP 148/89; PULSE 85; RESP 22; TEMP 37; O2SAT 98; BMI 34.4
[2021-05-18 10:40] LABS: Adenovirus,PCR Not Detected (NotDetected); Bordetella Pertussis Not Detected (NotDetected); Chlamydophila Pneumoniae, PCR Not Detected (NotDetected); Coronavirus 19, PCR Not Detected (NotDetected); Coronavirus 229E Not Detected (NotDetected); Coronavirus NL63 Not Detected (NotDetected); Coronavirus OC43 Not Detected (NotDetected); Coronovirus HKU1,PCR Not Detected (NotDetected); Human Metapneumovirus Not Detected (NotDetected); Influenza A, PCR Not Detected (NotDetected); Influenza AH1, 2009 Not Detected (NotDetected); Influenza AH1, PCR Not Detected (NotDetected); Influenza AH3,PCR Not Detected (NotDetected); Influenza B, PCR Not Detected (NotDetected); Mycoplasma Pneumoniae, PCR Not Detected (NotDetected); Parainfluenza 1, PCR Not Detected (NotDetected); Parainfluenza 2, PCR Not Detected (NotDetected); Parainfluenza 4, PCR Not Detected (NotDetected); Respiratory Syncytial Virus Not Detected (NotDetected); Rhinovirus/Enterovirus Not Detected (NotDetected)
[2021-05-18 10:48] LABS: UTC Influenza A Antigen Negative (Negative); UTC Influenza B Antigen Negative (Negative)
--- NOTE | 2021-05-18 10:52 | HMH.EDUTC ---
[facility] – [place] Disposition Clinical Impression: URI (upper respiratory infection) Qualifiers: URI type: unspecified URI Qualified Code(s): J06.9 - Acute upper respiratory infection, unspecified Disposition: Home, Self-Care Condition on Discharge: Good Instructions: Common Cold, DI for Viral Upper Respiratory Infection -- Adult Additional Instructions: Over the counter Sudafed may help with the nasal congestion Follow up if needed Over the counter Cold medication may help Delsym may help with the cough Make sure to drink plenty of fluids Return if needed Straight to ER if any life threatening symptoms Referrals: Quentin Hernandez MD [Primary Care Provider] - As needed Forms: Work/School Release Time of Disposition: 11:32 Medical Decision Making - Dale Inquiry Pt receiving controlled substance: No Dale was queried for this patient: No Vital Signs: 05/18/21 10:10 Temperature 98.6 F Temperature Source Oral Pulse Rate [Right Brachial] 85 Respiratory Rate 22 Blood Pressure [Right Arm] 148/89 H Blood Pressure Mean [Right Arm] 108 Blood Pressure Source [Right Arm] Automatic Cuff Blood Pressure Position [Right Arm] Sitting 02 Sat by Pulse Oximetry 98 Oxygen Delivery Method Room Air - Lab Data Lab Results 05/18/21 10:30: Influenza Type A Ag Negative, Influenza Type B Ag Negative Orders (Tests/Meds): ED MEDICATIONS Discontinued Medications Generic Name Dose Route Start Last Admin Trade Name Freq PRN Reason Stop Dose Admin Ceftriaxone Sodium 1 gm 05/18/21 11:13 05/18/21 11:22 Ceftriaxone 1gm Vial IM 05/18/21 11:14 1 gm ONCE ONE Administration Lidocaine HCl 0 ml 05/18/21 11:13 05/18/21 11:22 Lidocaine 1% 5ml Pf Vial IM 05/18/21 11:14 2 ml ONCE ONE Administration Methylprednisolone Sodium Succinate 125 mg 05/18/21 11:13 05/18/21 11:22 Methylprednisolone Sod Succ 125mg Vial IM 05/18/21 11:14 125 mg ONCE ONE Administration ORDERS Category Date Time Status Full Resp Panel w/COVID ([facility]) Routine Lab 05/18/21 10:30 Received [facility] [place] HPI - General Stated complaint: cough, congestion Time Seen by Provider: 05/18/21 10:52 Mode of Arrival: Ambulatory Source of Information: Patient Limitations: No Limitations Description of Symptoms (Recalled from Triage Doc. by RN): PATIENT C/O CONGESTION, COUGH, RUNNY NOSE AND FATIGUE X 4 DAYS HEENT Symptoms (Recalled from RN notes): Yes Resp Symptoms (Recalled from RN notes): Yes Skin Symptoms (Recalled from RN notes): No MS Symptoms (Recalled from RN notes): No Functional Status (Recalled from RN notes): WNL - History of Present Illness Provider Complaint: Patient state that he was recently seen and was tested for COVID State that he finished up his Zpack and it hasnt helped State that he is still having sinus congestion and pressure State that he was up most of the night coughing and wanted to get tested again for COVID - Related Data Home Medications Medication Instructions Recorded Confirmed Rivaroxaban [Xarelto] 20 mg PO DAILY 05/13/21 05/18/21 Vedolizumab [Entyvio 300mg vial] 300 mg SQ ONCE 05/13/21 05/18/21 Azithromycin [Z-Nayan 250mg Tab*] 250 mg PO UD DOSE PK 05/18/21 05/18/21 methylPREDNISolone [Medrol] 4 mg PO DIRECTED 05/18/21 05/18/21 Allergies Allergy/AdvReac Type Severity Reaction Status Date / Time ciprofloxacin [From Cipro] Allergy Unknown GI UPSET Verified 12/06/20 13:47 metronidazole Allergy Unknown I-HIVES Verified 12/06/20 13:47 - Worker's Comp Is this a Worker's Comp case?: No [facility] History - Hepatitis A Screen Drug use history?: No High risk sexual behaviors?: No History of sexually transmitted infection?: No Currently employed?: No Childcare worker?: No Do you have indoor plumbing?: Yes Do you have electricity?: Yes Attestation statement:: This patient has been screened for Hepatitis A risk factors. I have reviewed the patient's past medical history: Yes Medical History: Rep
[2021-05-18 11:36] VITALS: BP 148/89; PULSE 85; RESP 22; TEMP 37; O2SAT 98
[2021-05-18 12:06] LABS: Parainfluenza 3, PCR Detected (NotDetected)
== END 2021-05-18 11:39 | disposition home or self-care (01) ==
PROVIDERS: Emergency Provider Nurse Practitioner; PCP Emergency Medicine
DX: J06.9 Acute upper respiratory infection, unspecified (principal); Z20.822 Contact with and (suspected) exposure to COVID-19
CPT/HCPCS: 87581; 87632; 87798; 87804; 96372; 99202; C9803; G0463; U0003; U0005

== ENCOUNTER → 2021-05-23 09:06 | Outpatient (CLI) | payer BC, MEDICARE, SELFPAY ==
[2021-05-23 09:12] VITALS: BP 161/92; PULSE 85; RESP 16; TEMP 36.6; O2SAT 96
[2021-05-23 09:13] VITALS: BMI 33.9
[2021-05-23 09:30] LABS: Basophils # 0.2 K/mm3 (0-0.2); Basophils % 1.5 % (0.1-2.0); Eosinophils # 0.7 K/mm3 (0.0-0.4); Eosinophils % 6.9 % (0.1-12.0); Hematocrit 44.1 % (42.0-52.0); Hemoglobin 14.3 g/dL (14.1-18.0); Lymphocytes # 2.3 K/mm3 (0.7-4.5); Lymphocytes % 22.9 % (10-50); Mean Corpuscular HGB Conc 32.3 g/dL (31.8-35.4); Mean Corpuscular Hemoglobin 28.2 pg (27.0-31.2); Mean Corpuscular Volume 87.2 fl (80-94); Mean Platelet Volume 7.6 fl (7.4-10.4); Monocytes # 0.4 K/mm3 (0.1-1.0); Monocytes % 3.9 % (1.7-9.3); Neutrophils # 6.5 K/mm3 (1.8-7.8); Neutrophils % 64.7 % (37.0-80.0); Platelet Count 242 K/mm3 (142-424); Red Blood Count 5.05 M/mm3 (4.60-6.20); Red Cell Distribution Width 13.9 % (11.5-17.5)
[2021-05-23 09:33] LABS: Chloride 101 mmol/L (98-107); Potassium 3.1 mmoL/L (3.5-5.1); Sodium 137 mmol/L (136-145)
[2021-05-23 09:35] LABS: Alanine Aminotransferase 85 U/L (12-78); Alkaline Phosphatase 97 U/L (38-126); Aspartate Amino Transferase 55 U/L (17-59); Bilirubin,Total 0.4 mg/dl (0.2-1.3); Blood Urea Nitrogen 17 mg/dl (9-20); Creatinine Clearance Estimated 145 mL/min (50-200); Estimated Glomerular Filt Rate 80 ml/min (>60); GFR (African American) 97 ML/MIN (>60)
[2021-05-23 09:36] LABS: Albumin Level 3.7 g/dl (3.5-5.0); Albumin/Globulin Ratio 1.2 (1.1-1.8); Anion Gap 10.1 mEq/L (5-15); Calcium 8.2 mg/dl (8.4-10.2); Carbon Dioxide 29 mmol/L (22.0-30.0); Glucose 161 mg/dl (74-100); Total Protein,Serum 6.7 g/dl (6.3-8.2)
[2021-05-23 09:41] LABS: C-Reactive Protein 10.6 mg/L (0-4)
== END ==
PROVIDERS: PCP Emergency Medicine; Visit Provider Physician Assistant
DX: K50.919 Crohn's disease, unspecified, with unspecified complications (principal)
CPT/HCPCS: 80053; 85025; 86140; 96365; 96413; J3380

== ENCOUNTER 2021-07-29 08:51 | Outpatient (CLI) | payer BC, MEDICARE, SELFPAY ==
[2021-07-29 09:04] VITALS: BMI 34.4
[2021-07-29 09:32] LABS: Chloride 99 mmol/L (98-107); Sodium 136 mmol/L (136-145)
[2021-07-29 09:33] LABS: Potassium 3.8 mmoL/L (3.5-5.1)
[2021-07-29 09:34] LABS: Basophils # 0.1 K/mm3 (0-0.2); Basophils % 1.7 % (0.1-2.0); Eosinophils # 0.4 K/mm3 (0.0-0.4); Eosinophils % 5.3 % (0.1-12.0); Hematocrit 42.8 % (42.0-52.0); Hemoglobin 13.8 g/dL (14.1-18.0); Lymphocytes # 1.5 K/mm3 (0.7-4.5); Lymphocytes % 21.4 % (10-50); Mean Corpuscular HGB Conc 32.4 g/dL (31.8-35.4); Mean Corpuscular Hemoglobin 28.3 pg (27.0-31.2); Mean Corpuscular Volume 87.4 fl (80-94); Mean Platelet Volume 8.5 fl (7.4-10.4); Monocytes # 0.5 K/mm3 (0.1-1.0); Monocytes % 6.8 % (1.7-9.3); Neutrophils # 4.5 K/mm3 (1.8-7.8); Neutrophils % 64.8 % (37.0-80.0); Platelet Count 227 K/mm3 (142-424); Red Blood Count 4.89 M/mm3 (4.60-6.20); Red Cell Distribution Width 14.3 % (11.5-17.5)
[2021-07-29 09:35] LABS: Alanine Aminotransferase 30 U/L (12-78); Albumin Level 3.9 g/dl (3.5-5.0); Albumin/Globulin Ratio 1.3 (1.1-1.8); Alkaline Phosphatase 77 U/L (38-126); Anion Gap 8.8 mEq/L (5-15); Aspartate Amino Transferase 31 U/L (17-59); Bilirubin,Total 0.7 mg/dl (0.2-1.3); Blood Urea Nitrogen 12 mg/dl (9-20); Carbon Dioxide 32 mmol/L (22.0-30.0); Creatinine Clearance Estimated 134 mL/min (50-200); Estimated Glomerular Filt Rate 71 ml/min (>60); GFR (African American) 86 ML/MIN (>60); Total Protein,Serum 6.9 g/dl (6.3-8.2)
[2021-07-29 09:36] LABS: Calcium 8.2 mg/dl (8.4-10.2); Glucose 80 mg/dl (74-100)
[2021-07-29 09:40] VITALS: BP 143/90; PULSE 81; RESP 18; O2SAT 100
[2021-07-29 09:41] LABS: C-Reactive Protein 5.6 mg/L (0-4)
[2021-07-29 10:20] VITALS: BP 149/84; PULSE 78; RESP 18
== END 2021-07-29 10:30 | disposition home or self-care (01) ==
LOC: INF 08:53
PROVIDERS: PCP Emergency Medicine; Visit Provider Physician Assistant
DX: K50.919 Crohn's disease, unspecified, with unspecified complications (principal)
CPT/HCPCS: 80053; 85025; 86140; 96413; J3380

== ENCOUNTER 2021-09-30 10:57 | Outpatient (CLI) | payer BC, MEDICARE, SELFPAY ==
[2021-09-30 11:05] VITALS: BMI 34.4
[2021-09-30 11:22] LABS: Basophils # 0.1 K/mm3 (0-0.2); Basophils % 1.9 % (0.1-2.0); Eosinophils # 0.5 K/mm3 (0.0-0.4); Eosinophils % 7.7 % (0.1-12.0); Hematocrit 39.6 % (42.0-52.0); Hemoglobin 13.5 g/dL (14.1-18.0); Lymphocytes # 1.7 K/mm3 (0.7-4.5); Lymphocytes % 23.9 % (10-50); Mean Corpuscular HGB Conc 34.2 g/dL (31.8-35.4); Mean Corpuscular Hemoglobin 28.9 pg (27.0-31.2); Mean Corpuscular Volume 84.3 fl (80-94); Mean Platelet Volume 8.6 fl (7.4-10.4); Monocytes # 0.5 K/mm3 (0.1-1.0); Monocytes % 6.7 % (1.7-9.3); Neutrophils # 4.1 K/mm3 (1.8-7.8); Neutrophils % 59.8 % (37.0-80.0); Platelet Count 218 K/mm3 (142-424); Red Cell Distribution Width 14.5 % (11.5-17.5); White Blood Count 6.9 K/mm3 (4.8-10.8)
[2021-09-30 11:25] LABS: Chloride 103 mmol/L (98-107); Potassium 3.8 mmoL/L (3.5-5.1); Sodium 139 mmol/L (136-145)
[2021-09-30 11:27] LABS: Blood Urea Nitrogen 12 mg/dl (9-20); Creatinine Clearance Estimated 147 mL/min (50-200); Estimated Glomerular Filt Rate 80 ml/min (>60); GFR (African American) 97 ML/MIN (>60)
[2021-09-30 11:28] LABS: Alanine Aminotransferase 43 U/L (12-78); Albumin Level 3.6 g/dl (3.5-5.0); Albumin/Globulin Ratio 1.2 (1.1-1.8); Alkaline Phosphatase 87 U/L (38-126); Anion Gap 8.8 mEq/L (5-15); Aspartate Amino Transferase 31 U/L (17-59); Bilirubin,Total 0.8 mg/dl (0.2-1.3); Calcium 8.9 mg/dl (8.4-10.2); Carbon Dioxide 31 mmol/L (22.0-30.0); Globulin 2.9 g/dL (1.3-3.2); Glucose 112 mg/dl (74-100); Total Protein,Serum 6.5 g/dl (6.3-8.2)
[2021-09-30 11:33] LABS: C-Reactive Protein 7.8 mg/L (0-4)
[2021-09-30 11:35] VITALS: BP 153/94; PULSE 84; RESP 18; O2SAT 95
[2021-09-30 12:20] VITALS: BP 148/78; PULSE 88; RESP 18; O2SAT 96
== END 2021-09-30 12:20 | disposition home or self-care (01) ==
LOC: INF 11:00
PROVIDERS: PCP Emergency Medicine; Visit Provider Physician Assistant
DX: K50.90 Crohn's disease, unspecified, without complications (principal)
CPT/HCPCS: 80053; 85025; 86140; 96413; J3380

== ENCOUNTER 2021-11-25 09:42 | Outpatient (CLI) | payer BC, MEDICARE, SELFPAY ==
[2021-11-25 09:47] VITALS: BMI 35.6
[2021-11-25 10:03] LABS: Basophils # 0.1 K/mm3 (0-0.2); Basophils % 1.7 % (0.1-2.0); Eosinophils # 0.6 K/mm3 (0.0-0.4); Eosinophils % 8.2 % (0.1-12.0); Hematocrit 41.2 % (42.0-52.0); Hemoglobin 13.3 g/dL (14.1-18.0); Lymphocytes # 1.6 K/mm3 (0.7-4.5); Lymphocytes % 21.8 % (10-50); Mean Corpuscular HGB Conc 32.2 g/dL (31.8-35.4); Mean Corpuscular Hemoglobin 27.9 pg (27.0-31.2); Mean Corpuscular Volume 86.7 fl (80-94); Mean Platelet Volume 7.7 fl (7.4-10.4); Monocytes # 0.5 K/mm3 (0.1-1.0); Monocytes % 7.2 % (1.7-9.3); Neutrophils # 4.6 K/mm3 (1.8-7.8); Neutrophils % 61.1 % (37.0-80.0); Platelet Count 193 K/mm3 (142-424); Red Blood Count 4.75 M/mm3 (4.60-6.20); Red Cell Distribution Width 14.8 % (11.5-17.5); White Blood Count 7.4 K/mm3 (4.8-10.8)
[2021-11-25 10:09] LABS: Chloride 106 mmol/L (98-107); Potassium 3.9 mmoL/L (3.5-5.1); Sodium 138 mmol/L (136-145)
[2021-11-25 10:11] LABS: Blood Urea Nitrogen 14 mg/dl (9-20); Creatinine Clearance Estimated 127 mL/min (50-200); Estimated Glomerular Filt Rate 65 ml/min (>60); GFR (African American) 78 ML/MIN (>60)
[2021-11-25 10:12] LABS: Alanine Aminotransferase 47 U/L (12-78); Albumin Level 3.9 g/dl (3.5-5.0); Albumin/Globulin Ratio 1.2 (1.1-1.8); Alkaline Phosphatase 90 U/L (38-126); Anion Gap 8.9 mEq/L (5-15); Aspartate Amino Transferase 34 U/L (17-59); Bilirubin,Total 0.6 mg/dl (0.2-1.3); Carbon Dioxide 27 mmol/L (22.0-30.0); Globulin 3.2 g/dL (1.3-3.2); Total Protein,Serum 7.1 g/dl (6.3-8.2)
[2021-11-25 10:13] LABS: Calcium 8.7 mg/dl (8.4-10.2); Glucose 145 mg/dl (74-100)
[2021-11-25 10:17] LABS: C-Reactive Protein 7.8 mg/L (0-4)
[2021-11-25 10:20] VITALS: BP 138/86; PULSE 81; RESP 18; O2SAT 97
[2021-11-25 11:15] VITALS: BP 136/89; PULSE 78; RESP 18
== END 2021-11-25 11:15 | disposition home or self-care (01) ==
LOC: INF 09:43
PROVIDERS: PCP Emergency Medicine; Visit Provider Physician Assistant
DX: K50.919 Crohn's disease, unspecified, with unspecified complications (principal)
CPT/HCPCS: 80053; 85025; 86140; 96413; J3380

== ENCOUNTER 2021-11-27 11:56 | Emergency (ER) | payer BC, MEDICARE, SELFPAY ==
--- NOTE | 2021-11-27 12:18 | HMH.EDUTC ---
[facility] – [place] Dis[place] Clinical Impression: Bronchitis Sinusitis Qualifiers: Sinusitis location: unspecified location Chronicity: acute Recurrence: non-recurrent Qualified Code(s): J01.90 - Acute sinusitis, unspecified Disposition: Home, Self-Care Condition on Discharge: Good Instructions: DI for Sinusitis Additional Instructions: Drink plenty of fluids. Take tylenol or ibuprofen for pain or fever. Take the medications as directed. Follow up with your regular doctor. GO TO THE ER FOR ANY WORSENING SYMPTOMS \ Don't start the oral steroids until tomorrow, since you had the shot here today. Prescriptions: Amoxicillin/Potassium Clav [Amox-Clav 875-125 mg Tablet] 1 tab PO BID #20 tab [facility] Benzonatate [Benzonatate 100mg cap] 100 mg PO TIDP PRN #30 cap PRN Reason: Cough [facility] methylPREDNISolone [Medrol] 4 mg PO DIRECTED 6 Days #21 packet Transmission Status: [facility] guaiFENesin [Mucinex 600mg tablet] 1 - 2 tab PO BIDP PRN #30 tab PRN Reason: Congestion [facility] Referrals: Quentin Hernandez MD [Primary Care Provider] - Time of Disposition: 13:05 Medical Decision Making - Medical Records Medical records reviewed: No: I reviewed the patient's medical records. - Dale Inquiry Pt receiving controlled substance: No Vital Signs: 11/27/21 12:19 11/27/21 13:19 Temperature 98.0 F 98.0 F Temperature Source Oral Pulse Rate 89 Pulse Rate [Left] 89 Respiratory Rate 17 17 Blood Pressure 130/89 Blood Pressure [Right Arm] 130/89 Blood Pressure Mean [Right Arm] 102 02 Sat by Pulse Oximetry 97 - Lab Data Lab results reviewed: Yes: I reviewed the patient's lab results. Orders (Tests/Meds): ED MEDICATIONS Discontinued Medications Generic Name Dose Route Start Last Admin Trade Name Freq PRN Reason Stop Dose Admin Ceftriaxone Sodium 1 gm 11/27/21 12:49 11/27/21 13:02 Ceftriaxone 1gm Vial IM 11/27/21 12:50 1 gm ONCE ONE Administration Lidocaine HCl 0 ml 11/27/21 12:49 11/27/21 13:02 Lidocaine 1% 5ml Pf Vial IM 11/27/21 12:50 2 ml ONCE ONE Administration Methylprednisolone Sodium Succinate 125 mg 11/27/21 12:49 11/27/21 13:03 Methylprednisolone Sod Succ 125mg Vial IM 11/27/21 12:50 125 mg ONCE ONE Administration [facility] [place] HPI - General Stated complaint: sore throat, drainage Time Seen by Provider: 11/27/21 12:18 - History of Present Illness Provider Complaint: He states that he has had chest congestion and sinus congestion for the past 5 days. 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 He denies any fever. He refuses a covid-19 test - Related Data Home Medications Medication Instructions Recorded Confirmed Vedolizumab [Entyvio 300mg vial] 300 mg SQ ONCE 05/13/21 11/25/21 Venlafaxine HCl [Effexor Xr] 75 mg PO DAILY 07/29/21 11/25/21 Rivaroxaban [Xarelto] See Rx Instructions .ROUTE .COMPLEX 11/25/21 11/25/21 Previous Rx's Medication Instructions Recorded Amoxicillin/Potassium Clav 1 tab PO BID #20 tab 11/27/21 [Amox-Clav 875-125 mg Tablet] Benzonatate [Benzonatate 100mg 100 mg PO TIDP PRN #30 cap 11/27/21 cap] guaiFENesin [Mucinex 600mg tablet] 1 - 2 tab PO BIDP PRN #30 tab 11/27/21 methylPREDNISolone [Medrol] 4 mg PO DIRECTED 6 Days #21 11/27/21 packet Allergies Allergy/AdvReac Type Severity Reaction Status Date / Time ciprofloxacin [From Cipro] Allergy Unknown GI UPSET Verified 11/27/21 12:22 metronidazole Allergy Unknown I-HIVES Verified 11/27/21 12:22 [facility] History - Hepatitis A Screen Attestation statement:: This patient has been screened for Hepatitis A risk factors. I have reviewed the patient's past medical history: Yes Medical History
[2021-11-27 12:19] VITALS: BP 130/89; PULSE 89; RESP 17; TEMP 36.7; O2SAT 97; BMI 35.2
[2021-11-27 13:19] VITALS: BP 130/89; PULSE 89; RESP 17; TEMP 36.7
== END 2021-11-27 13:20 | disposition home or self-care (01) ==
PROVIDERS: Emergency Provider Nurse Practitioner Family; PCP Emergency Medicine
DX: J40 Bronchitis, not specified as acute or chronic (principal); J01.90 Acute sinusitis, unspecified
CPT/HCPCS: 96372; 99212; G0463; J0696

== ENCOUNTER → 2021-12-27 08:45 | Outpatient (POV) | payer MEDICARE, BC, SELFPAY | PROVIDERS: Visit Provider Dermatology | DX: Z00.00 Encounter for general adult medical examination without abnormal findings (principal) ==

== ENCOUNTER → 2022-01-09 06:13 | Outpatient (CLI) | payer BC, MEDICARE, SELFPAY ==
[2022-01-09 17:35] LABS: Basophils # 0.1 K/mm3 (0-0.2); Basophils % 1.6 % (0.1-2.0); Eosinophils # 0.5 K/mm3 (0.0-0.4); Eosinophils % 6.3 % (0.1-12.0); Hematocrit 44.4 % (42.0-52.0); Hemoglobin 13.9 g/dL (14.1-18.0); Lymphocytes % 26.7 % (10-50); Mean Corpuscular HGB Conc 31.3 g/dL (31.8-35.4); Mean Corpuscular Hemoglobin 27.4 pg (27.0-31.2); Mean Corpuscular Volume 87.5 fl (80-94); Mean Platelet Volume 8.8 fl (7.4-10.4); Monocytes # 0.6 K/mm3 (0.1-1.0); Monocytes % 7.4 % (1.7-9.3); Neutrophils # 4.3 K/mm3 (1.8-7.8); Platelet Count 201 K/mm3 (142-424); Red Blood Count 5.07 M/mm3 (4.60-6.20); Red Cell Distribution Width 14.8 % (11.5-17.5); White Blood Count 7.4 K/mm3 (4.8-10.8)
[2022-01-09 17:38] LABS: Alanine Aminotransferase 43 U/L (12-78); Albumin/Globulin Ratio 1.3 (1.1-1.8); Alkaline Phosphatase 113 U/L (38-126); Anion Gap 12.5 mEq/L (5-15); Aspartate Amino Transferase 34 U/L (17-59); Bilirubin,Total 0.4 mg/dl (0.2-1.3); Blood Urea Nitrogen 15 mg/dl (9-20); Calcium 9.2 mg/dl (8.4-10.2); Carbon Dioxide 29 mmol/L (22.0-30.0); Chloride 104 mmol/L (98-107); Cholesterol 131 mg/dl (140-200); Estimated Glomerular Filt Rate 65 ml/min (>60); GFR (African American) 78 ML/MIN (>60); Glucose 110 mg/dl (74-100); HDL Cholesterol 33 mg/dl (40-60); Potassium 4.5 mmoL/L (3.5-5.1); Sodium 141 mmol/L (136-145); Triglycerides 98 mg/dl (30-150); VLDL Cholesterol 20 mg/dL (0-40)
[2022-01-09 17:55] LABS: 25-OH Vitamin D, Total 33.2 ng/mL (30-100)
[2022-01-09 18:08] LABS: Prostate Specific Ag Screen 0.3 ng/ml (0.0-4.0); Thyroid Stimulating Hormone 1.27 uIU/mL (0.465-4.68)
[2022-01-11 09:38] LABS: Direct LDL Cholesterol 70 mg/dL (100-129)
== END ==
PROVIDERS: PCP Physician Assistant; Visit Provider Physician Assistant
DX: Z00.00 Encounter for general adult medical examination without abnormal findings (principal); Z12.5 Encounter for screening for malignant neoplasm of prostate; E78.5 Hyperlipidemia, unspecified; F32.9 Major depressive disorder, single episode, unspecified; K50.90 Crohn's disease, unspecified, without complications; E66.9 Obesity, unspecified; Z68.34 Body mass index [BMI] 34.0-34.9, adult; Z79.899 Other long term (current) drug therapy
CPT/HCPCS: 80053; 80061; 82306; 83036; 84443; 85025; G0103

== ENCOUNTER 2022-01-20 09:30 | Outpatient (CLI) | payer BC, MEDICARE, SELFPAY ==
[2022-01-20 09:30] VITALS: BMI 35.6
[2022-01-20 10:03] LABS: Basophils # 0.1 K/mm3 (0-0.2); Basophils % 1.4 % (0.1-2.0); Eosinophils # 0.4 K/mm3 (0.0-0.4); Eosinophils % 6.5 % (0.1-12.0); Hematocrit 44.6 % (42.0-52.0); Hemoglobin 13.7 g/dL (14.1-18.0); Lymphocytes # 1.5 K/mm3 (0.7-4.5); Lymphocytes % 23.7 % (10-50); Mean Corpuscular HGB Conc 30.8 g/dL (31.8-35.4); Mean Corpuscular Hemoglobin 27.7 pg (27.0-31.2); Mean Corpuscular Volume 89.9 fl (80-94); Mean Platelet Volume 8.2 fl (7.4-10.4); Monocytes # 0.4 K/mm3 (0.1-1.0); Monocytes % 6.7 % (1.7-9.3); Neutrophils # 3.8 K/mm3 (1.8-7.8); Neutrophils % 61.7 % (37.0-80.0); Platelet Count 198 K/mm3 (142-424); Red Blood Count 4.96 M/mm3 (4.60-6.20); Red Cell Distribution Width 14.7 % (11.5-17.5); White Blood Count 6.1 K/mm3 (4.8-10.8)
[2022-01-20 10:08] LABS: Alanine Aminotransferase 53 U/L (12-78); Albumin Level 3.9 g/dl (3.5-5.0); Albumin/Globulin Ratio 1.3 (1.1-1.8); Alkaline Phosphatase 104 U/L (38-126); Anion Gap 11.9 mEq/L (5-15); Aspartate Amino Transferase 47 U/L (17-59); Bilirubin,Total 0.7 mg/dl (0.2-1.3); Blood Urea Nitrogen 14 mg/dl (9-20); Calcium 8.9 mg/dl (8.4-10.2); Carbon Dioxide 32 mmol/L (22.0-30.0); Chloride 100 mmol/L (98-107); Creatinine Clearance Estimated 127 mL/min (50-200); Estimated Glomerular Filt Rate 65 ml/min (>60); GFR (African American) 78 ML/MIN (>60); Globulin 3.1 g/dL (1.3-3.2); Glucose 112 mg/dl (74-100); Potassium 3.9 mmoL/L (3.5-5.1); Sodium 140 mmol/L (136-145)
[2022-01-20 10:13] LABS: C-Reactive Protein 3.6 mg/L (0-4)
[2022-01-20 10:15] VITALS: BP 132/87; PULSE 75; RESP 20; TEMP 36.9; O2SAT 95
[2022-01-20 11:00] VITALS: BP 135/74; PULSE 68; RESP 20; TEMP 36.9; O2SAT 95
== END 2022-01-20 11:00 | disposition home or self-care (01) ==
LOC: INF 09:30
PROVIDERS: PCP Emergency Medicine; Visit Provider Physician Assistant
DX: K50.90 Crohn's disease, unspecified, without complications (principal)
CPT/HCPCS: 80053; 85025; 86140; 96413; J3380

== ENCOUNTER 2022-03-17 10:17 | Outpatient (CLI) | payer BC, MEDICARE, SELFPAY ==
[2022-03-17 10:44] VITALS: BMI 33.3
[2022-03-17 10:55] VITALS: BP 125/89; PULSE 83; RESP 18; O2SAT 96
[2022-03-17 11:12] LABS: Basophils # 0.1 K/mm3 (0-0.2); Basophils % 1.4 % (0.1-2.0); Eosinophils # 0.2 K/mm3 (0.0-0.4); Eosinophils % 2.8 % (0.1-12.0); Hematocrit 42.8 % (42.0-52.0); Hemoglobin 13.9 g/dL (14.1-18.0); Lymphocytes # 1.8 K/mm3 (0.7-4.5); Lymphocytes % 21.7 % (10-50); Mean Corpuscular HGB Conc 32.4 g/dL (31.8-35.4); Mean Corpuscular Hemoglobin 27.9 pg (27.0-31.2); Mean Platelet Volume 8.1 fl (7.4-10.4); Monocytes # 0.6 K/mm3 (0.1-1.0); Monocytes % 7.3 % (1.7-9.3); Neutrophils # 5.4 K/mm3 (1.8-7.8); Neutrophils % 66.8 % (37.0-80.0); Platelet Count 207 K/mm3 (142-424); Red Blood Count 4.97 M/mm3 (4.60-6.20); Red Cell Distribution Width 14.2 % (11.5-17.5); White Blood Count 8.1 K/mm3 (4.8-10.8)
[2022-03-17 11:14] LABS: Chloride 99 mmol/L (98-107); Potassium 3.9 mmoL/L (3.5-5.1); Sodium 140 mmol/L (136-145)
[2022-03-17 11:16] LABS: Alanine Aminotransferase 42 U/L (12-78); Aspartate Amino Transferase 28 U/L (17-59); Blood Urea Nitrogen 15 mg/dl (9-20); Creatinine Clearance Estimated 143 mL/min (50-200); Estimated Glomerular Filt Rate 80 ml/min (>60); GFR (African American) 97 ML/MIN (>60)
[2022-03-17 11:17] LABS: Albumin Level 3.9 g/dl (3.5-5.0); Albumin/Globulin Ratio 1.3 (1.1-1.8); Alkaline Phosphatase 105 U/L (38-126); Anion Gap 12.9 mEq/L (5-15); Bilirubin,Total 0.6 mg/dl (0.2-1.3); Calcium 8.4 mg/dl (8.4-10.2); Carbon Dioxide 32 mmol/L (22.0-30.0); Glucose 103 mg/dl (74-100); Total Protein,Serum 6.9 g/dl (6.3-8.2)
[2022-03-17 11:25] VITALS: BP 142/96; PULSE 79; RESP 18
[2022-03-17 11:25] LABS: C-Reactive Protein 6.5 mg/L (0-4)
[2022-03-21 12:52] LABS: QuantiFERON-TB Gold Plus Negative (Negative)
== END 2022-03-17 12:00 | disposition home or self-care (01) ==
LOC: INF 10:18
PROVIDERS: PCP Emergency Medicine; Visit Provider Physician Assistant
DX: K50.919 Crohn's disease, unspecified, with unspecified complications (principal)
CPT/HCPCS: 80053; 85025; 86140; 86480; 96413; J3380

== ENCOUNTER 2022-05-12 10:04 | Outpatient (CLI) | payer BC, MEDICARE, SELFPAY ==
[2022-05-12 10:06] VITALS: BMI 33.3
[2022-05-12 10:38] LABS: Chloride 102 mmol/L (98-107); Potassium 3.7 mmoL/L (3.5-5.1); Sodium 139 mmol/L (136-145)
[2022-05-12 10:39] LABS: Basophils # 0.1 K/mm3 (0-0.2); Basophils % 1.3 % (0.1-2.0); Eosinophils # 0.3 K/mm3 (0.0-0.4); Eosinophils % 4.7 % (0.1-12.0); Hematocrit 42.9 % (42.0-52.0); Hemoglobin 14.1 g/dL (14.1-18.0); Lymphocytes # 1.5 K/mm3 (0.7-4.5); Lymphocytes % 21.2 % (10-50); Mean Corpuscular HGB Conc 32.9 g/dL (31.8-35.4); Mean Corpuscular Hemoglobin 28.5 pg (27.0-31.2); Mean Corpuscular Volume 86.6 fl (80-94); Monocytes # 0.3 K/mm3 (0.1-1.0); Monocytes % 4.7 % (1.7-9.3); Neutrophils # 4.8 K/mm3 (1.8-7.8); Neutrophils % 68.1 % (37.0-80.0); Platelet Count 226 K/mm3 (142-424); Red Blood Count 4.95 M/mm3 (4.60-6.20); Red Cell Distribution Width 14.6 % (11.5-17.5)
[2022-05-12 10:40] LABS: Blood Urea Nitrogen 15 mg/dl (9-20); Creatinine Clearance Estimated 128 mL/min (50-200); Estimated Glomerular Filt Rate 71 ml/min (>60); GFR (African American) 86 ML/MIN (>60)
[2022-05-12 10:41] LABS: Alanine Aminotransferase 36 U/L (12-78); Albumin/Globulin Ratio 1.4 (1.1-1.8); Alkaline Phosphatase 84 U/L (38-126); Anion Gap 13.7 mEq/L (5-15); Aspartate Amino Transferase 31 U/L (17-59); Bilirubin,Total 0.4 mg/dl (0.2-1.3); Carbon Dioxide 27 mmol/L (22.0-30.0); Globulin 2.9 g/dL (1.3-3.2); Glucose 136 mg/dl (74-100); Total Protein,Serum 6.9 g/dl (6.3-8.2)
[2022-05-12 10:43] VITALS: BP 139/97; PULSE 75; RESP 18
[2022-05-12 10:46] LABS: C-Reactive Protein 3.1 mg/L (0-4)
[2022-05-12 11:20] VITALS: BP 138/85; PULSE 74; RESP 18
== END 2022-05-12 11:30 | disposition home or self-care (01) ==
LOC: INF 10:05
PROVIDERS: PCP Emergency Medicine; Visit Provider Physician Assistant
DX: K50.919 Crohn's disease, unspecified, with unspecified complications (principal)
CPT/HCPCS: 80053; 85025; 86140; 96413; J3380

== ENCOUNTER 2022-07-04 09:42 | Outpatient (CLI) | payer BC, MEDICARE, SELFPAY ==
[2022-07-04 09:52] VITALS: BMI 34.0
[2022-07-04 10:18] VITALS: BP 152/92; PULSE 81; RESP 18; TEMP 36.4; O2SAT 98
[2022-07-04 10:28] LABS: Basophils # 0.1 K/mm3 (0-0.2); Eosinophils # 0.2 K/mm3 (0.0-0.4); Eosinophils % 2.2 % (0.1-12.0); Hematocrit 44.6 % (42.0-52.0); Hemoglobin 14.5 g/dL (14.1-18.0); Lymphocytes # 1.7 K/mm3 (0.7-4.5); Lymphocytes % 20.2 % (10-50); Mean Corpuscular HGB Conc 32.6 g/dL (31.8-35.4); Mean Corpuscular Volume 85.7 fl (80-94); Mean Platelet Volume 7.3 fl (7.4-10.4); Monocytes # 0.5 K/mm3 (0.1-1.0); Monocytes % 5.5 % (1.7-9.3); Neutrophils # 6.1 K/mm3 (1.8-7.8); Platelet Count 239 K/mm3 (142-424); Red Cell Distribution Width 14.1 % (11.5-17.5); White Blood Count 8.6 K/mm3 (4.8-10.8)
[2022-07-04 10:31] LABS: Alanine Aminotransferase 51 U/L (12-78); Albumin/Globulin Ratio 1.3 (1.1-1.8); Alkaline Phosphatase 85 U/L (38-126); Aspartate Amino Transferase 37 U/L (17-59); Bilirubin,Total 0.5 mg/dl (0.2-1.3); Blood Urea Nitrogen 14 mg/dl (9-20); Calcium 8.4 mg/dl (8.4-10.2); Carbon Dioxide 29 mmol/L (22.0-30.0); Chloride 105 mmol/L (98-107); Creatinine Clearance Estimated 144 mL/min (50-200); Estimated Glomerular Filt Rate 79 ml/min (>60); GFR (African American) 96 ML/MIN (>60); Globulin 3.2 g/dL (1.3-3.2); Glucose 106 mg/dl (74-100); Sodium 139 mmol/L (136-145); Total Protein,Serum 7.2 g/dl (6.3-8.2)
[2022-07-04 10:37] LABS: C-Reactive Protein 4.2 mg/L (0-4)
[2022-07-04 11:05] VITALS: BP 149/81; PULSE 79; RESP 18; O2SAT 98
== END 2022-07-04 11:10 | disposition home or self-care (01) ==
LOC: INF 09:45
PROVIDERS: PCP Emergency Medicine; Visit Provider Physician Assistant
DX: K50.919 Crohn's disease, unspecified, with unspecified complications (principal)
CPT/HCPCS: 80053; 85025; 86140; 96413; J3380

== ENCOUNTER 2022-09-01 10:00 | Outpatient (CLI) | payer BC, MEDICARE, SELFPAY ==
[2022-09-01 10:05] VITALS: BMI 34.0
[2022-09-01 10:28] LABS: Basophils # 0.1 K/mm3 (0-0.2); Basophils % 0.6 % (0.1-2.0); Eosinophils # 0.3 K/mm3 (0.0-0.4); Eosinophils % 4.1 % (0.1-12.0); Hematocrit 45.5 % (42.0-52.0); Hemoglobin 14.4 g/dL (14.1-18.0); Lymphocytes # 1.5 K/mm3 (0.7-4.5); Lymphocytes % 19.7 % (10-50); Mean Corpuscular HGB Conc 31.6 g/dL (31.8-35.4); Mean Corpuscular Volume 88.8 fl (80-94); Mean Platelet Volume 7.8 fl (7.4-10.4); Monocytes # 0.5 K/mm3 (0.1-1.0); Monocytes % 6.1 % (1.7-9.3); Neutrophils # 5.2 K/mm3 (1.8-7.8); Neutrophils % 69.6 % (37.0-80.0); Platelet Count 202 K/mm3 (142-424); Red Blood Count 5.13 M/mm3 (4.60-6.20); Red Cell Distribution Width 14.5 % (11.5-17.5); White Blood Count 7.5 K/mm3 (4.8-10.8)
[2022-09-01 10:35] LABS: Alanine Aminotransferase 56 U/L (12-78); Albumin Level 3.9 g/dl (3.5-5.0); Albumin/Globulin Ratio 1.3 (1.1-1.8); Alkaline Phosphatase 79 U/L (38-126); Anion Gap 6.8 mEq/L (5-15); Aspartate Amino Transferase 34 U/L (17-59); Bilirubin,Total 0.8 mg/dl (0.2-1.3); Blood Urea Nitrogen 13 mg/dl (9-20); Calcium 8.2 mg/dl (8.4-10.2); Carbon Dioxide 29 mmol/L (22.0-30.0); Chloride 103 mmol/L (98-107); Creatinine Clearance Estimated 160 mL/min (50-200); Estimated Glomerular Filt Rate 90 ml/min (>60); GFR (African American) 109 ML/MIN (>60); Glucose 126 mg/dl (74-100); Potassium 3.8 mmoL/L (3.5-5.1); Sodium 135 mmol/L (136-145); Total Protein,Serum 6.9 g/dl (6.3-8.2)
[2022-09-01 10:40] LABS: C-Reactive Protein 5.6 mg/L (0-4)
[2022-09-01 10:45] VITALS: BP 140/98; PULSE 80; RESP 18
[2022-09-01 11:25] VITALS: BP 132/94; PULSE 79; RESP 16
== END 2022-09-01 12:00 | disposition home or self-care (01) ==
PROVIDERS: PCP Emergency Medicine; Visit Provider Physician Assistant
DX: K50.919 Crohn's disease, unspecified, with unspecified complications (principal)
CPT/HCPCS: 80053; 85025; 86140; 96413

== ENCOUNTER → 2022-10-24 08:39 | Outpatient (POV) | payer BC, MEDICARE, SELFPAY | PROVIDERS: Visit Provider Dermatology | DX: Z00.00 Encounter for general adult medical examination without abnormal findings (principal) ==

== ENCOUNTER 2022-11-02 10:05 | Outpatient (CLI) | payer BC, MEDICARE, SELFPAY ==
[2022-11-02 10:12] VITALS: BMI 32.5
[2022-11-02 10:28] LABS: Basophils # 0.1 K/mm3 (0-0.2); Basophils % 0.8 % (0.1-2.0); Eosinophils # 0.5 K/mm3 (0.0-0.4); Eosinophils % 7.3 % (0.1-12.0); Hematocrit 41.8 % (42.0-52.0); Hemoglobin 13.6 g/dL (14.1-18.0); Lymphocytes # 1.5 K/mm3 (0.7-4.5); Lymphocytes % 24.2 % (10-50); Mean Corpuscular HGB Conc 32.4 g/dL (31.8-35.4); Mean Corpuscular Hemoglobin 27.8 pg (27.0-31.2); Mean Corpuscular Volume 85.7 fl (80-94); Monocytes # 0.4 K/mm3 (0.1-1.0); Monocytes % 5.8 % (1.7-9.3); Neutrophils # 3.9 K/mm3 (1.8-7.8); Neutrophils % 61.9 % (37.0-80.0); Platelet Count 178 K/mm3 (142-424); Red Blood Count 4.88 M/mm3 (4.60-6.20); Red Cell Distribution Width 14.3 % (11.5-17.5); White Blood Count 6.4 K/mm3 (4.8-10.8)
[2022-11-02 10:33] VITALS: BP 142/87; PULSE 76; RESP 18; O2SAT 96
[2022-11-02 10:37] LABS: Chloride 102 mmol/L (98-107); Potassium 3.4 mmoL/L (3.5-5.1); Sodium 140 mmol/L (136-145)
[2022-11-02 10:39] LABS: Alanine Aminotransferase 50 U/L (12-78); Blood Urea Nitrogen 9 mg/dl (9-20); Creatinine Clearance Estimated 138 mL/min (50-200); Estimated Glomerular Filt Rate 79 ml/min (>60); GFR (African American) 96 ML/MIN (>60)
[2022-11-02 10:40] LABS: Albumin Level 3.6 g/dl (3.5-5.0); Albumin/Globulin Ratio 1.3 (1.1-1.8); Alkaline Phosphatase 77 U/L (38-126); Anion Gap 11.4 mEq/L (5-15); Aspartate Amino Transferase 39 U/L (17-59); Bilirubin,Total 0.4 mg/dl (0.2-1.3); Calcium 8.2 mg/dl (8.4-10.2); Carbon Dioxide 30 mmol/L (22.0-30.0); Globulin 2.8 g/dL (1.3-3.2); Glucose 148 mg/dl (74-100); Total Protein,Serum 6.4 g/dl (6.3-8.2)
[2022-11-02 10:45] LABS: C-Reactive Protein 6.1 mg/L (0-4)
[2022-11-02 11:05] VITALS: BP 142/99; PULSE 83; RESP 18; O2SAT 97
== END 2022-11-02 11:05 | disposition home or self-care (01) ==
LOC: INF 10:06
PROVIDERS: PCP Emergency Medicine; Visit Provider Physician Assistant
DX: K50.919 Crohn's disease, unspecified, with unspecified complications (principal)
CPT/HCPCS: 80053; 85025; 86140; 96413; J3380

== ENCOUNTER 2022-11-11 09:25 | Emergency (ER) | payer BC, MEDICARE, SELFPAY ==
[2022-11-11 09:26] VITALS: BP 158/111; PULSE 86; RESP 16; TEMP 36.7; O2SAT 95; BMI 33.9
--- NOTE | 2022-11-11 09:43 | CA_ITS ---
FINAL REPORT TECHNIQUE: extremity venous duplex was performed with augmentation and compression. CLINICAL HISTORY: rule out blood clot, lim pain, calf edema R leg Pt had extensive DVT in September 2019 after a hospital stay, Pt on xarelto FINDINGS: Proper flow is seen throughout the deep venous system. There is no evidence of deep venous thrombosis. IMPRESSION: no deep venous thrombosis. Reviewed, Interpreted and Dictated by Phu Pittman MD Transcribed by Nathalie Costa Authenticated and [facility]
--- NOTE | 2022-11-11 09:57 | EXP.UTC ---
Discharge Plan Disposition Patient Disposition: Home, Self-Care Condition: Good Prescriptions Prescriptions: New methylprednisolone 4 mg Tablets,Dose Pack 4 mg PO DIRECTED Qty: 21 0RF No Action cyanocobalamin (vitamin B-12) 1,000 mcg/mL solution 1,000 mcg IM WEEKLY Xarelto 20 mg tablet See Rx Instructions .ROUTE .COMPLEX Qty: 90 0RF Dose Instruction: TAKE ONE TABLET BY MOUTH DAILY FOR BLOOD CLOTS WITH EVENING MEAL Rx Instructions: TAKE ONE TABLET BY MOUTH DAILY FOR BLOOD CLOTS WITH EVENING MEAL venlafaxine 75 mg capsule,extended release 24hr 75 mg PO DAILY Qty: 90 3RF methylprednisolone 4 mg tablets,dose pack See Rx Instructions PO PER PKG DIR Rx Instructions: PO PER PKG DIR amoxicillin-pot clavulanate 875-125 mg tablet 1 tab PO BID vedolizumab 300 MG recon soln 300 mg SQ DIRECTED Rx Instructions: every 8 weeks Referrals Follow up/Referrals: Maxi Courtney JR, MD [Physician] - See instructions Quentin Hernandez MD [Primary Care Provider] - See instructions Activity Restrictions/Add. Instructions Additional Instructions/Restrictions: Rest the extremity, Elevate the extremity as tolerated while you are resting. Follow up with Dr. Courtney (orthopedics if you continue to have symptoms. I put in a referral but you need to call his office and schedule an appointment. Follow up with your regular doctor. GO TO THE ER FOR ANY WORSENING SYMPTOMS Clinical Impressions Clinical Impression: Pain in right leg Instructions Patient Instructions: Medial Tibial Stress Syndrome, DI for Soto Splint-Adult, DI for Leg Pain Discharge ED Provider: Azam Morales [facility] General Stated complaint: right leg pain, unknown origin Mode of Arrival: Ambulatory Source of Information: Patient Limitations: No Limitations Time Seen by Provider: 11/11/22 09:57 Description of Symptoms (Recalled from Triage Doc. by RN): Patient complaint of severe right soto pain since morning. HEENT Symptoms (Recalled from RN notes): No Resp Symptoms (Recalled from RN notes): No Skin Symptoms (Recalled from RN notes): No MS Symptoms (Recalled from RN notes): Yes Functional Status (Recalled from RN notes): wnl History of Present Illness Provider Complaint: He c/o right lower leg pain for the past 2 days. He has a history of dvt. He states that his leg has been swollen also. He denies any chest pain and shortness of breath. He is on oral anticoagulants. Related Data Home Medications Medication Instructions Recorded Confirmed vedolizumab 300 mg intravenous 300 mg SQ DIRECTED CROHNS 05/13/21 09/01/22 solution cyanocobalamin (vitamin B-12) 1,000 mcg IM WEEKLY Supplement 01/09/22 09/01/22 1,000 mcg/mL injection solution amoxicillin 875 mg-potassium 1 tab PO BID INFECTION 09/01/22 09/01/22 clavulanate 125 mg tablet methylprednisolone 4 mg tablets in See Rx Instructions PO PER PKG DIR 09/01/22 09/01/22 a dose pack Infection Previous Rx's Medication Instructions Recorded rivaroxaban 20 mg tablet (Xarelto) See Rx Instructions .Route 09/19/22 .COMPLEX #90 tabs venlafaxine 75 mg capsule,extended 75 mg PO DAILY Depression #90 caps 09/22/22 release 24 hr methylprednisolone 4 mg tablets in 4 mg PO DIRECTED #21 tabs 11/11/22 a dose pack Allergies Allergy/AdvReac Type Severity Reaction Status Date / Time ciprofloxacin [From Cipro] Allergy Unknown GI UPSET Verified 07/17/22 14:30 metronidazole Allergy Unknown I-HIVES Verified 07/17/22 14:30 Worker's Comp Is this a Worker's Comp case?: No [facility] Disclaimer: The information contained in this section may have been updated after the patient was seen, as this information can be updated by other users. Medical History CPAP (continuous positive airway pressure) dependence Crohns disease Depression DVT (deep venous thrombosis) Family hi
[2022-11-11 12:12] VITALS: BP 158/111; PULSE 86; RESP 16; TEMP 36.7; O2SAT 95
== END 2022-11-11 12:13 | disposition home or self-care (01) ==
PROVIDERS: Emergency Provider Nurse Practitioner Family; PCP Emergency Medicine
DX: M79.604 Pain in right leg (principal); K50.90 Crohn's disease, unspecified, without complications; F32.A Depression, unspecified; G47.30 Sleep apnea, unspecified; Z99.89 Dependence on other enabling machines and devices; Z86.718 Personal history of other venous thrombosis and embolism
CPT/HCPCS: 93971; 99212; 99214; G0463

== ENCOUNTER → 2022-11-17 12:17 | Outpatient (CLI) | payer BC, MEDICARE, SELFPAY ==
--- NOTE | 2022-11-17 12:20 | XR_ITS ---
FINAL REPORT CLINICAL HISTORY: rt lower leg pain FINDINGS: RIGHT TIBIA-FIBULA SERIES Two views of the right tibia-fibula were obtained. There is no acute fracture or dislocation. The joint spaces are preserved. There is no soft tissue abnormality. IMPRESSION: No acute abnormality. Reviewed, Interpreted and Dictated by hPu Pittman MD Transcribed by Celia White Authenticated and [facility]
== END ==
LOC: RAD 12:18
PROVIDERS: PCP Emergency Medicine; Visit Provider Orthopaedic Surgery
DX: M79.661 Pain in right lower leg (principal)
CPT/HCPCS: 73590

== ENCOUNTER → 2022-11-21 08:16 | Outpatient (CLI) | payer BC, MEDICARE, SELFPAY ==
--- NOTE | 2022-11-21 08:16 | MR_ITS ---
FINAL REPORT CLINICAL HISTORY: Right Lower leg pain, tender to touch and swelling FINDINGS: Multiplanar MR imaging of the right lower leg was performed without contrast. There is no evidence of fracture, bone bruise or marrow edema. No bony mass is identified. There is abnormal T2 signal in and adjacent to the tibialis anterior and extensor hallucis longus muscles worrisome for muscle injury versus myositis. There is subcutaneous edema or hemorrhage. No soft tissue mass or cyst is identified. IMPRESSION: Abnormal signal and an adjacent to the tibialis anterior and extensor hallucis longus muscles worrisome for a muscle injury versus myositis. Subcutaneous edema or hemorrhage. Reviewed, Interpreted and Dictated by Ham Hardwick III, MD Transcribed by Randall Huynh Authenticated and [facility]
== END ==
PROVIDERS: PCP Emergency Medicine; Visit Provider Orthopaedic Surgery
DX: M79.604 Pain in right leg (principal)
CPT/HCPCS: 73718

== ENCOUNTER 2023-01-02 18:19 | Emergency (ER) | payer BC, MEDICARE, SELFPAY ==
[2023-01-02 18:19] VITALS: BP 133/94; PULSE 93; RESP 18; TEMP 36.8; O2SAT 96; BMI 34.5
--- NOTE | 2023-01-02 18:29 | EXP.UTC ---
Discharge Plan Disposition Patient Disposition: Home, Self-Care Condition: Good Prescriptions Prescriptions: New methylprednisolone 4 mg Tablets,Dose Pack 4 mg PO DIRECTED Qty: 21 0RF guaifenesin [Mucinex] 600 mg tablet extended release 12hr 600 - 1,200 mg PO BIDP PRN (Reason: Congestion) Qty: 30 0RF amoxicillin-pot clavulanate 875-125 mg Tablet 1 tab PO Q12H Qty: 20 0RF No Action lisinopril 10 mg tablet 10 mg PO DAILY Qty: 30 1RF venlafaxine 75 mg capsule,extended release 24hr 75 mg PO DAILY Qty: 90 3RF Xarelto 20 mg tablet See Rx Instructions .ROUTE .COMPLEX Qty: 90 0RF Dose Instruction: TAKE ONE TABLET BY MOUTH DAILY FOR BLOOD CLOTS WITH EVENING MEAL Rx Instructions: TAKE ONE TABLET BY MOUTH DAILY FOR BLOOD CLOTS WITH EVENING MEAL vedolizumab 300 MG recon soln 300 mg SQ DIRECTED Rx Instructions: every 8 weeks Referrals Follow up/Referrals: Quentin Hernandez MD [Primary Care Provider] - See instructions Activity Restrictions/Add. Instructions Additional Instructions/Restrictions: Drink plenty of fluids. Take tylenol or ibuprofen for pain or fever. Take the medications as directed. Follow up with your regular doctor. GO TO THE ER FOR ANY WORSENING SYMPTOMS Don't start the oral steroids until tomorrow, since you had the shot here today. Clinical Impressions Clinical Impression: Sinusitis Instructions Patient Instructions: Sinusitis, DI for Sinusitis, Methylprednisolone Injection [place]charge ED [place] [facility] [place] General Stated complaint: poss sinis inf Time Seen by Provider: 01/02/23 18:29 History of Present Illness Provider Complaint: He states that he has had sinus congestion, sinus pressure, and malaise for the past 4 days. Related Data Home Medications Medication Instructions Recorded Confirmed vedolizumab 300 mg intravenous 300 mg SQ DIRECTED CROHNS 05/13/21 12/04/22 solution Previous Rx's Medication Instructions Recorded venlafaxine 75 mg capsule,extended 75 mg PO DAILY Depression #90 caps 09/22/22 release 24 hr lisinopril 10 mg tablet 10 mg PO DAILY #30 tabs 12/04/22 rivaroxaban 20 mg tablet (Xarelto) See Rx Instructions .Route 12/18/22 .COMPLEX #90 tabs amoxicillin 875 mg-potassium 1 tab PO Q12H #20 tabs 01/02/23 clavulanate 125 mg tablet guaifenesin 600 mg tablet, 600 - 1,200 mg PO BIDP PRN 01/02/23 extended release 12 hr (Mucinex) Congestion #30 tabs methylprednisolone 4 mg tablets in 4 mg PO DIRECTED #21 tabs 01/02/23 a dose pack Allergies Allergy/AdvReac Type Severity Reaction Status Date / Time ciprofloxacin [From Cipro] Allergy Unknown GI UPSET Verified 12/04/22 10:59 metronidazole Allergy Unknown I-HIVES Verified 12/04/22 10:59 PFSH PFSH Disclaimer: The information contained in this section may have been updated after the patient was seen, as this information can be updated by other users. Medical History CPAP (continuous positive airway pressure) dependence Crohns disease Depression DVT (deep venous thrombosis) Family history of diabetes mellitus Sleep apnea Snoring Surgical History History of repair of anterior cruciate ligament of left knee Hx of colonoscopy Hx of esophagogastroduodenoscopy Hx of hernia repair Family History Other No significant family history Social History Smoking Status: Never smoker second hand exposure: No alcohol intake: current substance use type: denies use current occupational status: other Travel in the last 8 weeks: None household members: spouse and children housing: apartment current occupational exposures/hazards: Yes caffeine: Yes ROS Obtained: Yes All systems reviewed & n
[2023-01-02 19:30] VITALS: BP 133/94; PULSE 93; RESP 18; TEMP 36.8; O2SAT 96
== END 2023-01-02 19:31 | disposition home or self-care (01) ==
PROVIDERS: Emergency Provider Nurse Practitioner Family; PCP Emergency Medicine
DX: J01.90 Acute sinusitis, unspecified (principal); R53.81 Other malaise; K50.90 Crohn's disease, unspecified, without complications; I10 Essential (primary) hypertension; F32.A Depression, unspecified; G47.33 Obstructive sleep apnea (adult) (pediatric); Z99.89 Dependence on other enabling machines and devices
CPT/HCPCS: 96372; 99212; 99214; G0463; J0696

== ENCOUNTER 2023-01-04 12:13 | Outpatient (CLI) | payer BC, MEDICARE, SELFPAY ==
[2023-01-04 12:15] VITALS: BMI 32.5
[2023-01-04 12:45] VITALS: BP 135/86; PULSE 74; RESP 18; O2SAT 99
[2023-01-04 12:49] LABS: Chloride 102 mmol/L (98-107); Sodium 138 mmol/L (136-145)
[2023-01-04 12:51] LABS: Alanine Aminotransferase 48 U/L (12-78); Alkaline Phosphatase 84 U/L (38-126); Aspartate Amino Transferase 25 U/L (17-59); Bilirubin,Total 0.4 mg/dl (0.2-1.3); Blood Urea Nitrogen 27 mg/dl (9-20); Creatinine Clearance Estimated 125 mL/min (50-200); Estimated Glomerular Filt Rate 71 ml/min (>60); GFR (African American) 86 ML/MIN (>60)
[2023-01-04 12:52] LABS: Albumin Level 3.8 g/dl (3.5-5.0); Albumin/Globulin Ratio 1.2 (1.1-1.8); Calcium 9.2 mg/dl (8.4-10.2); Carbon Dioxide 29 mmol/L (22.0-30.0); Globulin 3.3 g/dL (1.3-3.2); Glucose 108 mg/dl (74-100); Total Protein,Serum 7.1 g/dl (6.3-8.2)
[2023-01-04 12:57] LABS: C-Reactive Protein 1.8 mg/L (0-4)
[2023-01-04 12:58] LABS: Basophils # 0.1 K/mm3 (0-0.2); Basophils % 0.3 % (0.1-2.0); Eosinophils # 0.1 K/mm3 (0.0-0.4); Eosinophils % 0.7 % (0.1-12.0); Hematocrit 45.6 % (42.0-52.0); Hemoglobin 14.5 g/dL (14.1-18.0); Lymphocytes # 3.1 K/mm3 (0.7-4.5); Lymphocytes % 19.1 % (10-50); Mean Corpuscular HGB Conc 31.9 g/dL (31.8-35.4); Mean Corpuscular Hemoglobin 27.7 pg (27.0-31.2); Mean Platelet Volume 8.2 fl (7.4-10.4); Monocytes % 6.5 % (1.7-9.3); Neutrophils # 11.8 K/mm3 (1.8-7.8); Neutrophils % 73.3 % (37.0-80.0); Platelet Count 211 K/mm3 (142-424); Red Blood Count 5.24 M/mm3 (4.60-6.20); Red Cell Distribution Width 14.6 % (11.5-17.5); White Blood Count 16.1 K/mm3 (4.8-10.8)
[2023-01-04 13:07] LABS: MANUAL DIFFERENTIAL MANUAL DIFFERENTIAL (MANUAL DIFF)
[2023-01-04 13:27] VITALS: BP 133/90; PULSE 81; RESP 18; O2SAT 99
[2023-01-04 15:24] LABS: Hypochromasia 1+; Lymphocytes % 18 % (10-50); Monocytes % 4 % (2-9); Neutrophils % 78 % (42-76); Platelet Estimate Normal; Total Cells Counted 100
== END 2023-01-04 13:27 | disposition home or self-care (01) ==
PROVIDERS: PCP Emergency Medicine; Visit Provider Physician Assistant
DX: K50.919 Crohn's disease, unspecified, with unspecified complications (principal)
CPT/HCPCS: 80053; 85007; 85025; 86140; 96413; J3380

== ENCOUNTER 2023-03-07 10:59 | Outpatient (CLI) | payer BC, MEDICARE, SELFPAY ==
[2023-03-07 11:05] VITALS: BMI 32.5
[2023-03-07 11:44] VITALS: BP 138/85; PULSE 81; RESP 20; TEMP 36.8; O2SAT 97
[2023-03-07 11:48] LABS: Basophils # 0.1 K/mm3 (0-0.2); Basophils % 0.9 % (0.1-2.0); Eosinophils # 0.6 K/mm3 (0.0-0.4); Hematocrit 41.1 % (42.0-52.0); Hemoglobin 14.3 g/dL (14.1-18.0); Lymphocytes % 25.4 % (10-50); Mean Corpuscular HGB Conc 34.8 g/dL (31.8-35.4); Mean Corpuscular Hemoglobin 30.3 pg (27.0-31.2); Mean Corpuscular Volume 87.1 fl (80-94); Mean Platelet Volume 8.2 fl (7.4-10.4); Monocytes # 0.5 K/mm3 (0.1-1.0); Monocytes % 5.9 % (1.7-9.3); Neutrophils # 4.6 K/mm3 (1.8-7.8); Neutrophils % 59.7 % (37.0-80.0); Platelet Count 186 K/mm3 (142-424); Red Blood Count 4.72 M/mm3 (4.60-6.20); Red Cell Distribution Width 14.5 % (11.5-17.5); White Blood Count 7.7 K/mm3 (4.8-10.8)
[2023-03-07 12:06] LABS: Alanine Aminotransferase 75 U/L (12-78); Albumin Level 3.9 g/dl (3.5-5.0); Albumin/Globulin Ratio 1.2 (1.1-1.8); Alkaline Phosphatase 75 U/L (38-126); Anion Gap 9.8 mEq/L (5-15); Aspartate Amino Transferase 52 U/L (17-59); Bilirubin,Total 0.6 mg/dl (0.2-1.3); Blood Urea Nitrogen 16 mg/dl (9-20); Calcium 8.8 mg/dl (8.4-10.2); Carbon Dioxide 29 mmol/L (22.0-30.0); Chloride 102 mmol/L (98-107); Creatinine Clearance Estimated 138 mL/min (50-200); Estimated Glomerular Filt Rate 79 ml/min (>60); GFR (African American) 96 ML/MIN (>60); Globulin 3.2 g/dL (1.3-3.2); Glucose 141 mg/dl (74-100); Potassium 3.8 mmoL/L (3.5-5.1); Sodium 137 mmol/L (136-145); Total Protein,Serum 7.1 g/dl (6.3-8.2)
[2023-03-07 12:29] VITALS: BP 141/81; PULSE 90; RESP 20; O2SAT 97
[2023-03-10 14:15] LABS: QuantiFERON-TB Gold Plus Negative (Negative)
== END 2023-03-07 12:33 | disposition home or self-care (01) ==
LOC: INF 11:00
PROVIDERS: PCP Emergency Medicine; Visit Provider Physician Assistant
DX: K50.919 Crohn's disease, unspecified, with unspecified complications (principal)
CPT/HCPCS: 80053; 85025; 86140; 86480; 96413; J3380

== ENCOUNTER → 2023-03-13 08:47 | Outpatient (POV) | payer BC, MEDICARE, SELFPAY | PROVIDERS: Visit Provider Dermatology | DX: Z00.00 Encounter for general adult medical examination without abnormal findings (principal) ==

== ENCOUNTER 2023-05-02 11:36 | Outpatient (CLI) | payer BC, MEDICARE, SELFPAY ==
[2023-05-02 11:43] VITALS: BMI 35.2
[2023-05-02 11:58] LABS: Basophils # 0.1 K/mm3 (0-0.2); Eosinophils # 0.4 K/mm3 (0.0-0.4); Eosinophils % 6.2 % (0.1-12.0); Hematocrit 44.3 % (42.0-52.0); Hemoglobin 14.7 g/dL (14.1-18.0); Lymphocytes # 1.9 K/mm3 (0.7-4.5); Lymphocytes % 25.9 % (10-50); Mean Corpuscular HGB Conc 33.1 g/dL (31.8-35.4); Mean Corpuscular Hemoglobin 29.4 pg (27.0-31.2); Mean Platelet Volume 7.8 fl (7.4-10.4); Monocytes # 0.5 K/mm3 (0.1-1.0); Monocytes % 6.6 % (1.7-9.3); Neutrophils # 4.3 K/mm3 (1.8-7.8); Neutrophils % 60.2 % (37.0-80.0); Platelet Count 199 K/mm3 (142-424); Red Blood Count 4.98 M/mm3 (4.60-6.20); Red Cell Distribution Width 13.8 % (11.5-17.5); White Blood Count 7.1 K/mm3 (4.8-10.8)
[2023-05-02 12:10] VITALS: BP 126/76; PULSE 79; RESP 18; TEMP 36.8; O2SAT 98
[2023-05-02 12:10] LABS: Alanine Aminotransferase 43 U/L (12-78); Albumin Level 4.1 g/dl (3.5-5.0); Albumin/Globulin Ratio 1.3 (1.1-1.8); Alkaline Phosphatase 75 U/L (38-126); Anion Gap 10.2 mEq/L (5-15); Aspartate Amino Transferase 34 U/L (17-59); Bilirubin,Total 0.6 mg/dl (0.2-1.3); Blood Urea Nitrogen 17 mg/dl (9-20); Calcium 8.3 mg/dl (8.4-10.2); Carbon Dioxide 28 mmol/L (22.0-30.0); Chloride 102 mmol/L (98-107); Creatinine Clearance Estimated 147 mL/min (50-200); Estimated Glomerular Filt Rate 79 ml/min (>60); GFR (African American) 96 ML/MIN (>60); Globulin 3.2 g/dL (1.3-3.2); Glucose 103 mg/dl (74-100); Potassium 4.2 mmoL/L (3.5-5.1); Sodium 136 mmol/L (136-145); Total Protein,Serum 7.3 g/dl (6.3-8.2)
[2023-05-02 12:15] LABS: C-Reactive Protein 4.4 mg/L (0-4)
[2023-05-02 12:54] VITALS: BP 127/79; PULSE 78; RESP 18
== END 2023-05-02 12:54 | disposition home or self-care (01) ==
LOC: INF 11:37
PROVIDERS: PCP Physician Assistant; Visit Provider Physician Assistant
DX: K50.919 Crohn's disease, unspecified, with unspecified complications (principal)
CPT/HCPCS: 80053; 85025; 86140; 96413; J3380

== ENCOUNTER → 2023-05-11 23:55 | Outpatient (CLI) | payer BC, MEDICARE, SELFPAY ==
[2023-05-11 18:58] LABS: Hemoglobin A1C 5.9 % (4.0-6.0)
[2023-05-11 19:18] LABS: Thyroid Stimulating Hormone 1.49 uIU/mL (0.465-4.68)
== END ==
PROVIDERS: PCP Physician Assistant; Visit Provider Student in an Organized Health Care Education/Training Program
DX: R73.9 Hyperglycemia, unspecified (principal); Z83.3 Family history of diabetes mellitus; Z13.29 Encounter for screening for other suspected endocrine disorder; Z79.899 Other long term (current) drug therapy
CPT/HCPCS: 83036; 84443

== ENCOUNTER 2023-05-19 10:59 | Emergency (ER) | payer BC, MEDICARE, SELFPAY ==
[2023-05-19 13:15] VITALS: BP 129/74; PULSE 87; RESP 20; TEMP 37.5; O2SAT 100; BMI 36.6
[2023-05-19 13:38] LABS: UTC Influenza A Antigen Negative (Negative); UTC Influenza B Antigen Negative (Negative)
--- NOTE | 2023-05-19 14:06 | EXP.UTC ---
Discharge Plan Disposition Patient Disposition: Home, Self-Care Condition: Good Prescriptions Prescriptions: New cptbndgmshacjlm-jrmltnugk-PR [Bromfed DM] 2-30-10 mg/5 mL syrup 10 ml PO Q4-6H PRN (Reason: cold symptoms) Qty: 200 0RF No Action fluticasone propionate [Allergy Relief (fluticasone)] 50 mcg/actuation spray,suspension 1 spray intranasal DAILY Qty: 16 2RF Rx Instructions: administer into each nostril venlafaxine 75 mg capsule,extended release 24hr 75 mg PO DAILY Qty: 90 3RF Xarelto 20 mg tablet See Rx Instructions .ROUTE .COMPLEX Qty: 90 0RF Dose Instruction: TAKE 1 TABLET BY MOUTH ONCE DAILY WITH EVENING MEAL FOR BLOOD CLOTS Rx Instructions: TAKE 1 TABLET BY MOUTH ONCE DAILY WITH EVENING MEAL FOR BLOOD CLOTS metformin 500 mg tablet 500 mg PO DAILY Qty: 30 2RF lisinopril 10 mg tablet See Rx Instructions .ROUTE .COMPLEX Qty: 90 0RF Dose Instruction: Take 1 tablet by mouth once daily Rx Instructions: Take 1 tablet by mouth once daily vedolizumab 300 mg recon soln 300 mg SQ DIRECTED Rx Instructions: every 8 weeks Referrals Follow up/Referrals: Linda Jerome PA [Primary Care Provider] - See instructions Clinical Impressions Clinical Impression: Acute upper respiratory infection Instructions Patient Instructions: DI for Viral Upper Respiratory Infection -- Adult Discharge ED Provider: Key Sepulveda [facility] [place] HPI General Stated complaint: upper respitory, cough, congestion, fever Mode of Arrival: Ambulatory Source of Information: Patient Limitations: No Limitations Time Seen by Provider: 05/19/23 13:52 Description of Symptoms (Recalled from Triage Doc. by RN): PATIENT C/O BODY ACHES, FEVER, COUGH AND CONGESTION X 1.5 WEEKS BUT GOT WORSE LAST NIGHT HEENT Symptoms (Recalled from RN notes): Yes Resp Symptoms (Recalled from RN notes): Yes Skin Symptoms (Recalled from RN notes): No MS Symptoms (Recalled from RN notes): No Functional Status (Recalled from RN notes): WNL History of Present Illness Provider Complaint: Pt reports that he has been fighting an URI for the last 1.5 weeks. He reports that he has had a cough, clear sinus drainage, sinus pressure, body aches, and chills. He reports he was feeling better but then yesterday started feeling worse again. He saw EDELMIRA Garcia and received a steroid shot yesterday and was seen on the 15 and got a script for a Z-marii. Related Data Home Medications Medication Instructions Recorded Confirmed vedolizumab 300 mg intravenous 300 mg SQ DIRECTED CROHNS 02/02/23 05/18/23 solution Previous Rx's Medication Instructions Recorded venlafaxine 75 mg capsule,extended 75 mg PO DAILY Depression #90 caps 09/22/22 release 24 hr rivaroxaban 20 mg tablet (Xarelto) See Rx Instructions .Route 03/20/23 .COMPLEX #90 tabs fluticasone propionate 50 1 spray intranasal DAILY #16 grams 05/11/23 mcg/actuation nasal spray,suspension (Allergy Relief (fluticasone)) metformin 500 mg tablet 500 mg PO DAILY #30 tabs 05/15/23 lisinopril 10 mg tablet See Rx Instructions .Route 05/18/23 .COMPLEX #90 tabs mqhicntjbzrdjye-hzmpibggvzceubx-UQ 10 ml PO Q4-6H PRN cold symptoms 05/19/23 2 mg-30 mg-10 mg/5 mL oral syrup #200 mL (Bromfed DM) Allergies Allergy/AdvReac Type Severity Reaction Status Date / Time ciprofloxacin [From Cipro] Allergy Unknown GI UPSET Verified 05/18/23 11:04 metronidazole Allergy Unknown I-HIVES Verified 05/18/23 11:04 metform AdvReac Intermediate Nausea Uncoded 05/18/23 11:04 Worker's Comp Is this a Worker's Comp case?: No [facility] Disclaimer: The information contained in this section may have been updated after the patient was seen, as this information can be updated by other users. Medical History CPAP (continuous positive airway pressure) dependence Crohns disease Depression DVT (deep rosibel
[2023-05-19 14:13] VITALS: BP 129/74; PULSE 87; RESP 20; TEMP 37.5; O2SAT 100
[2023-05-19 14:26] LABS: Adenovirus,PCR Not Detected (NotDetected); Coronavirus 229E Not Detected (NotDetected); Coronavirus NL63 Not Detected (NotDetected); Coronavirus OC43 Not Detected (NotDetected); Coronovirus HKU1,PCR Not Detected (NotDetected); Human Metapneumovirus Not Detected (NotDetected); Influenza A, PCR Not Detected (NotDetected); Influenza AH1, 2009 Not Detected (NotDetected); Influenza AH1, PCR Not Detected (NotDetected); Influenza AH3,PCR Not Detected (NotDetected); Influenza B, PCR Not Detected (NotDetected); Parainfluenza 1, PCR Not Detected (NotDetected); Parainfluenza 2, PCR Not Detected (NotDetected); Parainfluenza 3, PCR Not Detected (NotDetected); Parainfluenza 4, PCR Not Detected (NotDetected); Respiratory Syncytial Virus Not Detected (NotDetected); Rhinovirus/Enterovirus Not Detected (NotDetected)
[2023-05-19 18:08] LABS: Coronavirus 19, PCR Detected (NotDetected)
== END 2023-05-19 14:23 | disposition home or self-care (01) ==
PROVIDERS: Emergency Provider Nurse Practitioner Family; PCP Physician Assistant
DX: U07.1 COVID-19 (principal); R50.9 Fever, unspecified; R51.9 Headache, unspecified; R05.9 Cough, unspecified; R09.81 Nasal congestion; R53.81 Other malaise; M79.18 Myalgia, other site
CPT/HCPCS: 87632; 87635; 87804; 99212; 99214; G0463

== ENCOUNTER 2023-07-10 07:42 | Outpatient (CLI) | payer BC, MEDICARE, SELFPAY ==
--- NOTE | 2023-07-10 07:49 | MR_ITS ---
FINAL REPORT CLINICAL HISTORY: CROHN S DISEASE OF BOTH SMALL AND LARGE INTESTINE. STATES SPOT BETWEEN RECTUM AND SCROTUM [id number]. SPOT STARTED OOZING BUT IS NOT NOW. SPOT DECREASED IN SIZE. COMPARISON: None FINDINGS: MRI PELVIS WITH AND WITHOUT CONTRAST: Multiplanar MR imaging of the pelvis was performed both before and after the administration of intravenous contrast. There are portions of the pelvis which are obscured by artifact. There is thickening of the wall of the rectosigmoid colon, worrisome for colitis. There is bladder wall thickening present, likely inflammatory. There is no fluid collection present to suggest an abscess. No perianal fistula is identified. There are mildly enlarged inguinal nodes, favor reactive. IMPRESSION: Thickening of the wall of the rectosigmoid colon, worrisome for colitis. Bladder wall thickening is present as well, likely inflammatory. No fluid collection is present to suggest an abscess, and no perianal fistula is identified. Reviewed, Interpreted and Dictated by Ham Hardwick III, MD Transcribed by Nathalie Costa Authenticated and . [facility]
[2023-07-10 08:13] LABS: Blood Urea Nitrogen 15 mg/dl (9-20); Estimated Glomerular Filt Rate 64 ml/min (>60); GFR (African American) 78 ML/MIN (>60)
[2023-07-10] MEDS: SODIUM CHLORIDE 0.9% 10ML SYR (RAD ONLY) 10 ML IV (09:56)
[2023-07-10] MEDS: GADOTERIDOL INJ 17ML SYRINGE 23 ML IV (09:56)
== END 2023-07-10 23:59 ==
LOC: RAD 07:43
PROVIDERS: PCP Physician Assistant; Visit Provider Physician Assistant
DX: K50.80 Crohn's disease of both small and large intestine without complications (principal)
CPT/HCPCS: 36415; 72197; 82565; 84520; A9576

== ENCOUNTER 2023-07-12 10:19 | Outpatient (CLI) | payer BC, MEDICARE, SELFPAY ==
[2023-07-12 10:26] VITALS: BMI 35.6
[2023-07-12 10:42] LABS: Basophils # 0.1 K/mm3 (0-0.2); Basophils % 0.7 % (0.1-2.0); Eosinophils # 0.3 K/mm3 (0.0-0.4); Eosinophils % 4.3 % (0.1-12.0); Hematocrit 45.1 % (42.0-52.0); Hemoglobin 15.1 g/dL (14.1-18.0); Lymphocytes # 1.8 K/mm3 (0.7-4.5); Lymphocytes % 23.8 % (10-50); Mean Corpuscular HGB Conc 33.4 g/dL (31.8-35.4); Mean Corpuscular Hemoglobin 29.1 pg (27.0-31.2); Mean Corpuscular Volume 87.2 fl (80-94); Mean Platelet Volume 7.8 fl (7.4-10.4); Monocytes # 0.4 K/mm3 (0.1-1.0); Neutrophils # 4.8 K/mm3 (1.8-7.8); Neutrophils % 65.1 % (37.0-80.0); Platelet Count 193 K/mm3 (142-424); Red Blood Count 5.17 M/mm3 (4.60-6.20); Red Cell Distribution Width 14.3 % (11.5-17.5); White Blood Count 7.3 K/mm3 (4.8-10.8)
[2023-07-12 11:20] LABS: C-Reactive Protein 5.6 mg/L (0-4)
[2023-07-12] MEDS: VEDOLIZUMAB 300 MG in 0.9 % SODIUM CHLORIDE 250 ML 500 MG IV (11:59)
[2023-07-12] MEDS: SODIUM CHLORIDE 0.9% 50ML BAG 50 ML IV (11:59)
[2023-07-12 12:05] VITALS: BP 152/96; PULSE 81; RESP 17; O2SAT 97
[2023-07-12 12:35] VITALS: BP 167/98; PULSE 88; RESP 17
== END 2023-07-12 12:43 | disposition home or self-care (01) ==
LOC: INF 10:20
PROVIDERS: PCP Physician Assistant; Visit Provider Physician Assistant
DX: K50.919 Crohn's disease, unspecified, with unspecified complications (principal); Z79.899 Other long term (current) drug therapy
CPT/HCPCS: 85025; 86140; 96413; J3380

== ENCOUNTER 2023-09-06 08:48 | Outpatient (CLI) | payer BC, MEDICARE, SELFPAY ==
[2023-09-06 09:20] LABS: Basophils # 0.1 K/mm3 (0-0.2); Basophils % 0.9 % (0.1-2.0); Eosinophils # 0.4 K/mm3 (0.0-0.4); Eosinophils % 4.9 % (0.1-12.0); Hematocrit 44.9 % (42.0-52.0); Hemoglobin 14.4 g/dL (14.1-18.0); Lymphocytes # 1.7 K/mm3 (0.7-4.5); Lymphocytes % 22.1 % (10-50); Mean Corpuscular HGB Conc 32.2 g/dL (31.8-35.4); Mean Corpuscular Hemoglobin 29.2 pg (27.0-31.2); Mean Corpuscular Volume 90.8 fl (80-94); Mean Platelet Volume 7.9 fl (7.4-10.4); Monocytes # 0.5 K/mm3 (0.1-1.0); Neutrophils # 4.8 K/mm3 (1.8-7.8); Platelet Count 198 K/mm3 (142-424); Red Blood Count 4.94 M/mm3 (4.60-6.20); Red Cell Distribution Width 14.2 % (11.5-17.5); White Blood Count 7.4 K/mm3 (4.8-10.8)
[2023-09-06 09:25] LABS: Chloride 105 mmol/L (98-107); Sodium 140 mmol/L (136-145)
[2023-09-06 09:27] VITALS: BMI 34.5
[2023-09-06 09:28] LABS: Alanine Aminotransferase 43 U/L (12-78); Albumin Level 3.9 g/dl (3.5-5.0); Alkaline Phosphatase 83 U/L (38-126); Aspartate Amino Transferase 30 U/L (17-59); Bilirubin,Direct 0.3 mg/dl (0.0-0.4); Bilirubin,Indirect 0.5 mg/dL (0.0-0.9); Bilirubin,Total 0.8 mg/dl (0.2-1.3); Bilirubin,Unconjugated 0.5 mg/dL (0.0-1.1); Blood Urea Nitrogen 15 mg/dl (9-20); Calcium 9.1 mg/dl (8.4-10.2); Carbon Dioxide 33 mmol/L (22.0-30.0); Cholesterol 170 mg/dl (140-200); Creatinine Clearance Estimated 131 mL/min (50-200); Estimated Glomerular Filt Rate 71 ml/min (>60); GFR (African American) 86 ML/MIN (>60); Glucose 110 mg/dl (74-100); Total Protein,Serum 6.9 g/dl (6.3-8.2); Triglycerides 87 mg/dl (30-150); VLDL Cholesterol 17 mg/dL (0-40)
[2023-09-06 09:29] LABS: Chol/HDL Ratio 4.7 (1-3.5); HDL Cholesterol 36 mg/dl (40-60)
[2023-09-06 09:30] VITALS: BP 130/74; PULSE 72; RESP 18; O2SAT 99
[2023-09-06] MEDS: SODIUM CHLORIDE 0.9% 50ML BAG 50 ML IV (09:30)
[2023-09-06] MEDS: VEDOLIZUMAB 300 MG in 0.9 % SODIUM CHLORIDE 250 ML 500 MG IV (09:30)
[2023-09-06 09:40] LABS: Direct LDL Cholesterol 96.91 mg/dL (100-129)
[2023-09-06 09:50] LABS: Chloride 106 mmol/L (98-107); Sodium 140 mmol/L (136-145)
[2023-09-06 09:52] LABS: Alanine Aminotransferase 44 U/L (12-78); Aspartate Amino Transferase 33 U/L (17-59); Blood Urea Nitrogen 15 mg/dl (9-20); Creatinine Clearance Estimated 145 mL/min (50-200); Estimated Glomerular Filt Rate 79 ml/min (>60); GFR (African American) 96 ML/MIN (>60)
[2023-09-06 09:53] LABS: Albumin Level 3.9 g/dl (3.5-5.0); Albumin/Globulin Ratio 1.3 (1.1-1.8); Alkaline Phosphatase 84 U/L (38-126); Bilirubin,Total 0.7 mg/dl (0.2-1.3); Calcium 9.2 mg/dl (8.4-10.2); Carbon Dioxide 32 mmol/L (22.0-30.0); Glucose 110 mg/dl (74-100); Total Protein,Serum 6.9 g/dl (6.3-8.2)
[2023-09-06 09:59] LABS: C-Reactive Protein 5.2 mg/L (0-4); Thyroid Stimulating Hormone 0.96 uIU/mL (0.465-4.68)
[2023-09-06 10:05] VITALS: BP 131/68; PULSE 76; O2SAT 98
[2023-09-06] MEDS: SODIUM CHLORIDE 0.9% 10ML FLUSH SYRINGE 10 ML IV (10:07)
[2023-09-06 10:51] LABS: Free T4 (Free Thyroxine) 1.15 ng/dl (0.78-2.19)
== END 2023-09-06 10:10 | disposition home or self-care (01) ==
LOC: INF 08:49
PROVIDERS: Nurse Practitioner; PCP Physician Assistant; Visit Provider Physician Assistant
DX: K50.919 Crohn's disease, unspecified, with unspecified complications (principal); I10 Essential (primary) hypertension; I82.412 Acute embolism and thrombosis of left femoral vein; Z83.3 Family history of diabetes mellitus; R73.03 Prediabetes; R06.00 Dyspnea, unspecified
CPT/HCPCS: 80048; 80053; 80061; 80076; 84439; 84443; 85025; 86140; 96413; J3380

== ENCOUNTER 2023-09-17 07:36 | Outpatient (CLI) | payer BC, MEDICARE, SELFPAY ==
--- NOTE | 2023-09-17 07:36 | CT_ITS ---
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 A noncontrast coronary calcium scan was performed. A CT attenuation threshold of 130 Hounsfield units (HU) was used for the detection of calcium in contiguous voxels of 1 sq mm in area to be counted as individual lesions. Bolus tracking in the ascending aorta with a threshold of 180 HU was performed. Immediately afterwards, ECG synchronized cardiac CT was then performed from the cardiac base to apex using retrospective gating with ECG tube current modulation. A total of 85 mL of Isovue 370 mg/mL contrast medium was administered at 5 mL/sec followed by a saline flush using a biphasic injection protocol. A tube voltage of 120 KVp was used. The patient received the following medications prior to the cardiac CT. 125 mg of oral metoprolol 5 mg of intravenous metoprolol 15 mg of oral ivabradine 0.8 mg of sublingual nitroglycerin The average heart rate at the time of acquisition was 64 bpm and regular. Image Reconstruction Transaxial images were reconstructed at 0.67 mm slide thickness. Data was reviewed interactively on an advanced workstation capable of 2 and 3-dimensional displays in all conventional reconstruction formats, including multiplanar reformations, maximum intensity projections, curved multiplanar reformations, and volume rendered reconstructions. When applicable, selected routine images describing the relevant coronary anatomy and pathology were saved and sent to PACS. Complications None Technical Quality Overall image quality was good. Coronary artery opacification was adequate. Total DLP (Dose-Length Product) is 1793.2 mGy-cm. The reported value represents the total of one or more individual components during the CT acquisition of this date and at this time, and as such, the same value may appear in more than one CT report depending on the interpreting/reporting physicians. COMPARISON None FINDINGS CT Coronary Calcium Scoring LMA (Left Main Artery) = 0 LAD (Left Anterior Descending) = 0 LCX (Left Coronary Circumflex) = 0 RCA (Right Coronary Artery) = 0 Total Calcium Score = 0 using the AJ-130 method. The interpretation of the calcium heart score is based on the following continuum*: 0 = no calcified plaque detected (risk of coronary artery disease is very low ??? less than 5%) 1-10 = calcium detected in extremely minimal levels (risk of coronary diseases is still low ??? less than 10%) 11-100 = mild levels of plaque detected with certainty (mild or minimal narrowing of heart arteries is likely) 101-400 = definite,at least moderate levels of plaque detected (relatively high risk of a heart attack within 3-5 years) >401-999 = extensive levels of plaque detected (high risk of heart attack, high levels of vascular disease are present, high likelihood of at least one significant coronary narrowing) *The calcium heart score quantifies the burden of coronary calcification/plaque in the coronary arteries. The calcium heart score is not able to evaluate the presence or burden of non-calcified (i.e. soft) plaque. There is no identifiable calcification in the aortic valve, mitral annulus or mitral valve, pericardium, or myocardium. Coronary CT Angiography The coronary arterial system is right dominant. Quantitative Stenosis Grading: Left Main (LM): The left main originates normally from the left sinus of Valsalva. The LM bifurcates into the left anterior descending artery and left circumflex artery. There is no evidence of atherosclerosis in the LM. Left Anterior Descending (LAD) and Diagonal Branches: The LAD gives off 2 diagonal branches. The LAD and its branches are patent with no evidence of atherosclerosis. There is no evidence of LAD-myocardial bridge. Left Circumflex (LCX) and Obtuse Marginals (OM): The LCX gives off 1 Obtuse Marginal (OM) branch(es). The LCX and its branches are patent with no evidence of atherosclerosis. Right Coronary Artery (RCA): The RCA originates normally from the right sinus of Valsalva. The RCA gives off a posterior descending artery (PDA) and posterolateral (PL) branches. The RCA and its branches are patent with no evidence of atherosclerosis. Non-Coronary Cardiac Findings: Analysis of the left ventricular (LV) structure and function was performed after 3-D reconstruction of the LV from axial images, with user-corrected automatic contouring for assessment of LV volumes and user-defined reconstruction from oblique planes for measurement of 3-D cardiac structure and function. -The left ventricle systolic function is normal. -There is no left atrial appendage filling defect. Two right pulmonary veins and two left pulmonary veins drain normally into the left atrium. -No pericardial thickening or calcification. -Central and branch pulmonary arteries in the lubhs-wk-vyrq are unremarkable. -Thoracic aorta within the visualized thoracic aortic-branches in the hqwqr-hi-oekv is unremarkable. Extracardiac Structures No significant extra-cardiac findings. Note, however, that this study is focused on the cardiac findings. IMPRESSION -No coronary calcification with an Agatston score = 0 using the AJ-130 method. -No evidence of significant flow-limiting atherosclerosis of the coronary arteries. -No evidence of coronary anomalies or myocardial bridges. -CAD-RADS 0. Management recommendations per ACC/AHA guidelines*, as clinically appropriate. *Recommendations: CAD RADS 0: Reassurance. Consider non-atherosclerotic causes of chest pain. CAD RADS 1: Consider non-atherosclerotic causes of chest pain. Consider preventive therapy and risk factor modification. CAD RADS 2: Consider non-atherosclerotic causes of chest pain. Consider preventive therapy and risk factor modification, particularly for patients with nonobstructive plaque in multiple segments. CAD RADS 3: Consider further functional testing. Consider symptom-guided anti-ischemic and preventive pharmacotherapy as well as risk factor modification per published guideline statements. CAD RADS 4A: Consider further functional testing or invasive coronary angiography with revascularization per published guideline statements. Consider symptom-guided anti-ischemic and preventive pharmacotherapy as well as risk factor modification per published guideline statements. CAD RADS 4B: Invasive coronary angiography recommended with revascularization per published guideline statements. Consider symptom-guided anti-ischemic and preventive pharmacotherapy as well as risk factor modification per published guideline statements. CAD RADS 5: Consider invasive angiography and/or viability assessment with revascularization per published guideline statements. Consider symptom-guided anti-ischemic and preventive pharmacotherapy as well as risk factor modification per published guideline statements. CRITICAL RESULT None COMMUNICATION Per this written report The coronary and cardiac findings of this CCTA were reviewed, reported, and signed by Jermain Rodrigues MD (Flagger) Conclusion Electronically signed by : Herminia Rodrigues MD 09/20/2023 16:20:48
[2023-09-17] MEDS: IVABRADINE HCL 7.5MG TABLET *IVABRADINE+METOPROLOL REGIMINE 15 MG PO (07:56)
[2023-09-17] MEDS: METOPROLOL TARTRATE 50MG TABLET *IVABRADINE+METOPROLOL REGIMINE 75 MG PO (07:57)
[2023-09-17 07:58] VITALS: BP 133/82; PULSE 85; RESP 18; O2SAT 96; BMI 33.9
[2023-09-17 08:16] LABS: POC Glucose,Bedside 92 (70-110)
--- NOTE | 2023-09-17 08:38 | CA_ITS ---
APPROVED REPORT EXAM: Comprehensive 2D, Doppler, and color-flow Echocardiogram Revising Clerk: Kae Palacios RVT Ht: 6 ft 0 in Wt: 255lbs BSA: 2.36 BP: 112/82 mmHg Indications: DYSPENA,HTN,RAUL 2D Dimensions LA Volume 36.70 mL LA Volume Index 15.55 mL/m2 (M/F) 16-34 M-Mode Dimensions RVDd 3.19 cm (0.9-2.6) LA Diam 3.47 cm (1.9-4.0) LVDd 4.96 cm (3.5-5.7) LVDs 3.09 cm (3.5-5.7) IVSd 0.76 cm (0.6-1.1) PWd 0.48 cm (0.6-1.1) EF (Teich) 67.60% FS 37.70% EDV (Teich) 116.10 mL TAPSE 1.75 (<1.7) ESV (Teich) 37.60 mL LV Diastology E Decel Time 150 (160-240 msec) E/A Ratio 1.0 Aortic Valve GERMAIN Index 1.10 cm2/m2 AoV Peak Nii. 104.0 (50-130 cm/s) AO Peak GR. 4.30 mmHg AO Mean GR. 2.30 (<5 mmHg) AO VTI 22.0 (18-25 cm) GERMAIN (VTI) 2.66 (2.5-4.5 cm2) Mitral Valve MV E Max Nii. 74.0 (40-130 cm/s) MV A Velocity 73.0 (40-130 cm/s) E/A Ratio 1.02 MV PHT 44.0 ms Pulmonary Valve PV Peak Velocity 43.0 (50-150 cm/s) Tricuspid Valve TR P. Velocity 233.00 cm/s RAP Estimate 10.00 mmHg RVSP 31.80 mmHg Left Ventricle The left ventricle is normal size. The left ventricular systolic function is low normal. There is normal left ventricular wall thickness. There is borderline global hypokinesis present. LVEF is 50%. The left ventricular diastolic function is normal. Right Ventricle The right ventricle is mildly dilated. The right ventricular systolic function is reduced. Atria The left atrium size is normal. The right atrium size is normal. There is no Doppler evidence of interatrial shunt. Aortic Valve The aortic valve is mildly thickened. There is no aortic valvular stenosis. No aortic regurgitation is present. Mitral Valve The mitral valve leaflets are mildly thickened. No evidence of mitral valve stenosis. Trace mitral regurgitation. Tricuspid Valve The tricuspid valve leaflets are thin and pliable. Mild tricuspid regurgitation. RVSP is 20-25 mmHg. Pulmonic Valve The pulmonary valve is normal in structure. Trace pulmonic regurgitation. Great Vessels The aortic root is normal in size. The ascending aorta is normal in size. IVC is normal in size and collapses >50% with inspiration. Pericardium There is no pericardial effusion. Other Information Study Quality: Fair Conclusion Low normal LV systolic function (LVEF 50%). Mild RV dilation with mild reduction in RV function. No significant valvular stenosis or regurgitation. Further evaluation to accurately evaluate the LVEF is recommended with cardiac MRI (cardiomyopathy protocol) to conclusively rule out reduced LV systolic function. Electronically signed by : Herminia Rodrigues MD 09/20/2023 12:44:18
[2023-09-17] MEDS: METOPROLOL TARTRATE 50MG TABLET *IVABRADINE+METOPROLOL REGIMINE 50 MG PO (08:43)
[2023-09-17 09:13] VITALS: BP 135/93; PULSE 70; RESP 18; O2SAT 95
[2023-09-17] MEDS: NITROGLYCERIN 0.4MG SL TABLET 0.800000000000000044 MG SL (09:13)
[2023-09-17 09:15] VITALS: BP 99/45; PULSE 68; RESP 18; O2SAT 95
[2023-09-17 09:20] VITALS: BP 103/63; PULSE 68; RESP 18; O2SAT 68
[2023-09-17] MEDS: METOPROLOL TARTRATE 5MG/5ML VIAL *IVABRADINE+METOPROLOL REGIMINE 5 MG IV (09:20)
[2023-09-17] MEDS: 0.9 % SODIUM CHLORIDE 50 ML VIAL IV (09:27)
[2023-09-17] MEDS: IOPAMIDOL-370 (76%);100ML BOTTLE 85 ML IV (09:27)
[2023-09-17 09:30] VITALS: BP 103/64; PULSE 69; RESP 18; O2SAT 95
[2023-09-17 09:42] VITALS: BP 98/68; PULSE 58; RESP 18; O2SAT 96
== END 2023-09-17 23:59 | disposition home or self-care (01) ==
LOC: RAD 07:36
PROVIDERS: PCP Physician Assistant; Visit Provider Nurse Practitioner
DX: R06.00 Dyspnea, unspecified (principal); I10 Essential (primary) hypertension; I82.412 Acute embolism and thrombosis of left femoral vein; R73.03 Prediabetes; Z83.3 Family history of diabetes mellitus
CPT/HCPCS: 75571; 75574; 82962; 93306; Q9967

== ENCOUNTER 2023-11-05 10:14 | Outpatient (CLI) | payer BC, MEDICARE, SELFPAY ==
[2023-11-05] MEDS: SODIUM CHLORIDE 0.9% 50ML BAG 25 ML IV (11:24)
[2023-11-05] MEDS: SODIUM CHLORIDE 0.9% 10ML SYR (RAD ONLY) 10 ML IV (11:24)
[2023-11-05] MEDS: GADOTERIDOL INJ 10ML SYRINGE 5 ML IV (11:24)
[2023-11-05] MEDS: GADOTERIDOL INJ 20ML SYRINGE 20 ML IV (11:25)
== END 2023-11-05 23:59 | disposition home or self-care (01) ==
LOC: RAD 10:14
PROVIDERS: PCP Physician Assistant; Visit Provider Nurse Practitioner
DX: I42.8 Other cardiomyopathies (principal); R06.09 Other forms of dyspnea; I10 Essential (primary) hypertension
CPT/HCPCS: 75561; A9576

== ENCOUNTER 2023-11-12 12:04 | Outpatient (CLI) | payer BC, MEDICARE, SELFPAY ==
[2023-11-12 12:19] VITALS: BMI 34.8
[2023-11-12 12:38] LABS: Basophils # 0.1 K/mm3 (0-0.2); Basophils % 1.2 % (0.1-2.0); Eosinophils # 0.6 K/mm3 (0.0-0.4); Eosinophils % 8.1 % (0.1-12.0); Hematocrit 40.4 % (42.0-52.0); Hemoglobin 13.4 g/dL (14.1-18.0); Lymphocytes # 1.9 K/mm3 (0.7-4.5); Lymphocytes % 26.6 % (10-50); Mean Corpuscular HGB Conc 33.3 g/dL (31.8-35.4); Mean Corpuscular Hemoglobin 29.9 pg (27.0-31.2); Mean Corpuscular Volume 89.6 fl (80-94); Mean Platelet Volume 8.2 fl (7.4-10.4); Monocytes # 0.5 K/mm3 (0.1-1.0); Monocytes % 6.3 % (1.7-9.3); Neutrophils # 4.1 K/mm3 (1.8-7.8); Neutrophils % 57.8 % (37.0-80.0); Platelet Count 182 K/mm3 (142-424); Red Blood Count 4.51 M/mm3 (4.60-6.20); Red Cell Distribution Width 14.8 % (11.5-17.5); White Blood Count 7.1 K/mm3 (4.8-10.8)
[2023-11-12 12:42] LABS: Chloride 106 mmol/L (98-107); Sodium 139 mmol/L (136-145)
[2023-11-12] MEDS: SODIUM CHLORIDE 0.9% 50ML BAG 50 ML IV (12:42)
[2023-11-12] MEDS: VEDOLIZUMAB 300 MG in 0.9 % SODIUM CHLORIDE 250 ML 500 MG IV (12:42)
[2023-11-12 12:43] LABS: Potassium 3.8 mmoL/L (3.5-5.1)
[2023-11-12 12:45] VITALS: BP 118/86; PULSE 84; RESP 18; TEMP 36.9; O2SAT 96
[2023-11-12 12:45] LABS: Alanine Aminotransferase 49 U/L (12-78); Albumin Level 3.6 g/dl (3.5-5.0); Albumin/Globulin Ratio 1.3 (1.1-1.8); Alkaline Phosphatase 77 U/L (38-126); Anion Gap 9.8 mEq/L (5-15); Aspartate Amino Transferase 39 U/L (17-59); Bilirubin,Total 0.6 mg/dl (0.2-1.3); Blood Urea Nitrogen 13 mg/dl (9-20); Carbon Dioxide 27 mmol/L (22.0-30.0); Creatinine Clearance Estimated 146 mL/min (50-200); Estimated Glomerular Filt Rate 79 ml/min (>60); GFR (African American) 96 ML/MIN (>60); Globulin 2.8 g/dL (1.3-3.2); Total Protein,Serum 6.4 g/dl (6.3-8.2)
[2023-11-12 12:46] LABS: Calcium 8.6 mg/dl (8.4-10.2); Glucose 106 mg/dl (74-100)
[2023-11-12 12:51] LABS: C-Reactive Protein 5.2 mg/L (0-4)
[2023-11-12 13:25] VITALS: BP 118/83; PULSE 81; RESP 18; O2SAT 96
== END 2023-11-12 13:25 | disposition home or self-care (01) ==
LOC: INF 12:12
PROVIDERS: PCP Physician Assistant; Visit Provider Physician Assistant
DX: Z51.12 Encounter for antineoplastic immunotherapy (principal); K50.919 Crohn's disease, unspecified, with unspecified complications; Z79.620 Long term (current) use of immunosuppressive biologic
CPT/HCPCS: 80053; 85025; 86140; 96413; J3380

== ENCOUNTER → 2023-12-11 12:02 | Outpatient (CLI) | payer BC, MEDICARE, SELFPAY | LOC: SL 12:04 | PROVIDERS: PCP Family Medicine; Visit Provider Family Medicine | DX: R40.0 Somnolence (principal); R53.83 Other fatigue; G47.33 Obstructive sleep apnea (adult) (pediatric) | CPT/HCPCS: G0399 ==

== ENCOUNTER 2024-01-09 14:19 | Outpatient (CLI) | payer BC, MEDICARE, SELFPAY ==
[2024-01-09 14:38] VITALS: BMI 34.8
[2024-01-09] MEDS: SODIUM CHLORIDE 0.9% 50ML BAG 50 ML IV (15:06)
[2024-01-09 15:07] LABS: Basophils # 0.1 K/mm3 (0-0.2); Basophils % 1.1 % (0.1-2.0); Eosinophils # 0.6 K/mm3 (0.0-0.4); Eosinophils % 7.1 % (0.1-12.0); Hematocrit 43.6 % (42.0-52.0); Hemoglobin 13.8 g/dL (14.1-18.0); Lymphocytes # 2.1 K/mm3 (0.7-4.5); Lymphocytes % 24.4 % (10-50); Mean Corpuscular HGB Conc 31.6 g/dL (31.8-35.4); Mean Corpuscular Hemoglobin 28.9 pg (27.0-31.2); Mean Corpuscular Volume 91.4 fl (80-94); Mean Platelet Volume 7.8 fl (7.4-10.4); Monocytes # 0.5 K/mm3 (0.1-1.0); Neutrophils # 5.2 K/mm3 (1.8-7.8); Neutrophils % 61.4 % (37.0-80.0); Platelet Count 223 K/mm3 (142-424); Red Blood Count 4.77 M/mm3 (4.60-6.20); Red Cell Distribution Width 14.4 % (11.5-17.5); White Blood Count 8.5 K/mm3 (4.8-10.8)
[2024-01-09] MEDS: SODIUM CHLORIDE 0.9% 10ML FLUSH SYRINGE 10 ML IV (15:07)
[2024-01-09 15:18] VITALS: BP 129/73; PULSE 85; RESP 18; TEMP 36.6; O2SAT 96
[2024-01-09] MEDS: VEDOLIZUMAB 300 MG in 0.9 % SODIUM CHLORIDE 250 ML 500 MG IV (15:18)
[2024-01-09 15:34] LABS: Alanine Aminotransferase 44 U/L (12-78); Albumin Level 3.8 g/dl (3.5-5.0); Albumin/Globulin Ratio 1.3 (1.1-1.8); Alkaline Phosphatase 76 U/L (38-126); Anion Gap 9.9 mEq/L (5-15); Aspartate Amino Transferase 30 U/L (17-59); Bilirubin,Total 0.8 mg/dl (0.2-1.3); Blood Urea Nitrogen 16 mg/dl (9-20); Calcium 8.8 mg/dl (8.4-10.2); Carbon Dioxide 28 mmol/L (22.0-30.0); Chloride 106 mmol/L (98-107); Creatinine Clearance Estimated 132 mL/min (50-200); Estimated Glomerular Filt Rate 71 ml/min (>60); GFR (African American) 86 ML/MIN (>60); Glucose 106 mg/dl (74-100); Potassium 3.9 mmoL/L (3.5-5.1); Sodium 140 mmol/L (136-145); Total Protein,Serum 6.8 g/dl (6.3-8.2)
[2024-01-09 15:39] LABS: C-Reactive Protein 5.6 mg/L (0-4)
[2024-01-09 16:02] VITALS: BP 108/65; PULSE 71; RESP 18; O2SAT 97
[2024-01-15 16:14] LABS: Calprotectin, Fecal 124 ug/g (0-120)
== END 2024-01-09 16:05 | disposition home or self-care (01) ==
LOC: INF 14:28
PROVIDERS: PCP Physician Assistant; Visit Provider Physician Assistant
DX: K50.80 Crohn's disease of both small and large intestine without complications (principal)
CPT/HCPCS: 80053; 83993; 85025; 86140; 96413; J3380

== ENCOUNTER → 2024-03-02 19:54 | Outpatient (CLI) | payer BC, MEDICARE, SELFPAY | LOC: SL 19:56 | PROVIDERS: PCP Physician Assistant; Visit Provider Family Medicine | DX: G47.33 Obstructive sleep apnea (adult) (pediatric) (principal); G47.34 Idiopathic sleep related nonobstructive alveolar hypoventilation | CPT/HCPCS: 95811 ==

== ENCOUNTER 2024-03-05 11:10 | Outpatient (CLI) | payer BC, MEDICARE, SELFPAY ==
[2024-03-05 11:18] VITALS: BMI 33.9
[2024-03-05 11:40] LABS: Basophils # 0.1 K/mm3 (0-0.2); Basophils % 1.1 % (0.1-2.0); Eosinophils # 0.3 K/mm3 (0.0-0.4); Eosinophils % 4.9 % (0.1-12.0); Hematocrit 40.2 % (42.0-52.0); Hemoglobin 14.2 g/dL (14.1-18.0); Lymphocytes # 1.6 K/mm3 (0.7-4.5); Lymphocytes % 23.9 % (10-50); Mean Corpuscular HGB Conc 35.3 g/dL (31.8-35.4); Mean Corpuscular Volume 87.8 fl (80-94); Mean Platelet Volume 7.9 fl (7.4-10.4); Monocytes # 0.5 K/mm3 (0.1-1.0); Monocytes % 6.7 % (1.7-9.3); Neutrophils # 4.3 K/mm3 (1.8-7.8); Neutrophils % 63.4 % (37.0-80.0); Platelet Count 190 K/mm3 (142-424); Red Blood Count 4.58 M/mm3 (4.60-6.20); Red Cell Distribution Width 14.1 % (11.5-17.5); White Blood Count 6.7 K/mm3 (4.8-10.8)
[2024-03-05 11:48] LABS: Chloride 102 mmol/L (98-107); Potassium 4.1 mmoL/L (3.5-5.1); Sodium 137 mmol/L (136-145)
[2024-03-05 11:50] LABS: Blood Urea Nitrogen 15 mg/dl (9-20); Creatinine Clearance Estimated 142 mL/min (50-200); Estimated Glomerular Filt Rate 79 ml/min (>60); GFR (African American) 96 ML/MIN (>60)
[2024-03-05 11:51] LABS: Alanine Aminotransferase 33 U/L (12-78); Albumin/Globulin Ratio 1.4 (1.1-1.8); Alkaline Phosphatase 70 U/L (38-126); Anion Gap 11.1 mEq/L (5-15); Aspartate Amino Transferase 29 U/L (17-59); Bilirubin,Total 0.7 mg/dl (0.2-1.3); Calcium 8.8 mg/dl (8.4-10.2); Carbon Dioxide 28 mmol/L (22.0-30.0); Globulin 2.9 g/dL (1.3-3.2); Glucose 106 mg/dl (74-100); Total Protein,Serum 6.9 g/dl (6.3-8.2)
[2024-03-05] MEDS: VEDOLIZUMAB 300 MG in 0.9 % SODIUM CHLORIDE 250 ML 500 MG IV (11:53)
[2024-03-05 11:54] VITALS: BP 128/73; PULSE 93; RESP 18; TEMP 36.8; O2SAT 95
[2024-03-05] MEDS: SODIUM CHLORIDE 0.9% 10ML FLUSH SYRINGE 10 ML IV (11:54)
[2024-03-05] MEDS: SODIUM CHLORIDE 0.9% 50ML BAG 50 ML IV (11:54)
[2024-03-05 11:56] LABS: C-Reactive Protein 5.3 mg/L (0-4)
[2024-03-05 12:55] VITALS: BP 137/69; PULSE 86; RESP 18; O2SAT 97
[2024-03-07 22:26] LABS: QuantiFERON-TB Gold Plus Negative (Negative)
== END 2024-03-05 12:55 | disposition home or self-care (01) ==
LOC: INF 11:11
PROVIDERS: PCP Physician Assistant; Visit Provider Physician Assistant
DX: K50.919 Crohn's disease, unspecified, with unspecified complications (principal)
CPT/HCPCS: 80053; 85025; 86140; 86480; 96413; J3380

== ENCOUNTER 2024-05-07 12:05 | Outpatient (CLI) | payer BC, MEDICARE, SELFPAY ==
[2024-05-07 12:14] VITALS: BMI 34.0
[2024-05-07 12:20] VITALS: BP 131/81; PULSE 76; RESP 18; TEMP 36.6; O2SAT 99
[2024-05-07] MEDS: VEDOLIZUMAB 300 MG in 0.9 % SODIUM CHLORIDE 250 ML 500 MG IV (12:20)
[2024-05-07] MEDS: SODIUM CHLORIDE 0.9% 50ML BAG 50 ML IV (12:20)
[2024-05-07] MEDS: SODIUM CHLORIDE 0.9% 10ML FLUSH SYRINGE 10 ML IV (12:20)
[2024-05-07 12:29] LABS: Albumin Level 3.9 g/dl (3.5-5.0); Chloride 105 mmol/L (98-107); Sodium 136 mmol/L (136-145)
[2024-05-07 12:30] LABS: Basophils # 0.1 K/mm3 (0-0.2); Basophils % 1.2 % (0.1-2.0); Eosinophils # 0.3 K/mm3 (0.0-0.4); Eosinophils % 4.2 % (0.1-12.0); Hematocrit 43.2 % (42.0-52.0); Hemoglobin 14.5 g/dL (14.1-18.0); Lymphocytes # 1.7 K/mm3 (0.7-4.5); Lymphocytes % 21.7 % (10-50); Mean Corpuscular HGB Conc 33.4 g/dL (31.8-35.4); Mean Corpuscular Hemoglobin 28.5 pg (27.0-31.2); Mean Corpuscular Volume 85.3 fl (80-94); Mean Platelet Volume 7.7 fl (7.4-10.4); Monocytes # 0.5 K/mm3 (0.1-1.0); Monocytes % 5.7 % (1.7-9.3); Neutrophils # 5.3 K/mm3 (1.8-7.8); Neutrophils % 67.2 % (37.0-80.0); Platelet Count 201 K/mm3 (142-424); Red Blood Count 5.07 M/mm3 (4.60-6.20); Red Cell Distribution Width 14.4 % (11.5-17.5); White Blood Count 7.9 K/mm3 (4.8-10.8)
[2024-05-07 12:31] LABS: Blood Urea Nitrogen 12 mg/dl (9-20); Creatinine Clearance Estimated 108 mL/min (50-200); Estimated Glomerular Filt Rate 58 ml/min (>60); GFR (African American) 70 ML/MIN (>60)
[2024-05-07 12:32] LABS: Alanine Aminotransferase 33 U/L (12-78); Albumin/Globulin Ratio 1.4 (1.1-1.8); Alkaline Phosphatase 73 U/L (38-126); Aspartate Amino Transferase 28 U/L (17-59); Bilirubin,Total 0.8 mg/dl (0.2-1.3); Calcium 8.9 mg/dl (8.4-10.2); Carbon Dioxide 31 mmol/L (22.0-30.0); Globulin 2.7 g/dL (1.3-3.2); Glucose 113 mg/dl (74-100); Total Protein,Serum 6.6 g/dl (6.3-8.2)
[2024-05-07 12:39] LABS: C-Reactive Protein 5.2 mg/L (0-4)
[2024-05-07 12:53] VITALS: BP 130/81; PULSE 79
== END 2024-05-07 13:00 | disposition home or self-care (01) ==
LOC: INF 12:07
PROVIDERS: PCP Student in an Organized Health Care Education/Training Program; Visit Provider Physician Assistant
DX: K50.90 Crohn's disease, unspecified, without complications (principal)
CPT/HCPCS: 80053; 85025; 86140; 96413; J3380

== ENCOUNTER 2024-05-27 15:00 | Outpatient (CLI) | payer BC, MEDICARE, SELFPAY ==
[2024-05-27 15:05] LABS: Adenovirus F 40/41, stool Not Detected (NotDetected); Astrovirus Not Detected (NotDetected); Campylobacter Not Detected (NotDetected); Clostridium Difficile A/B, PCR Not Detected (NotDetected); Cryptosporidium Not Detected (NotDetected); Cyclospora Cayetanesis Not Detected (NotDetected); Entamoeba histolytica Not Detected (NotDetected); Enteroaggregative E coli Not Detected (NotDetected); Enteropathogenic E coli Not Detected (NotDetected); Enterotoxigenic E coli Not Detected (NotDetected); Giardia lamblia Not Detected (NotDetected); Norovirus Not Detected (NotDetected); Plesimonas Shigalloides, PCR Not Detected (NotDetected); Rotavirus A Not Detected (NotDetected); Salmonella, PCR Not Detected (NotDetected); Sapovirus Not Detected (NotDetected); Shiga-like toxin E coli Not Detected (NotDetected); Shigella Enterovasive E coli Not Detected (NotDetected); Vibrio Cholerae Not Detected (NotDetected); Vibrio, PCR Not Detected (NotDetected); Yersinia Entercolitica, PCR Not Detected (NotDetected)
[2024-05-27 15:36] LABS: Basophils # 0.1 K/mm3 (0-0.2); Basophils % 0.8 % (0.1-2.0); Eosinophils # 0.6 K/mm3 (0.0-0.4); Hematocrit 39.4 % (42.0-52.0); Hemoglobin 13.3 g/dL (14.1-18.0); Lymphocytes # 1.9 K/mm3 (0.7-4.5); Lymphocytes % 23.2 % (10-50); Mean Corpuscular HGB Conc 33.8 g/dL (31.8-35.4); Mean Corpuscular Hemoglobin 28.7 pg (27.0-31.2); Mean Corpuscular Volume 84.9 fl (80-94); Mean Platelet Volume 9.9 fl (7.4-10.4); Monocytes # 0.5 K/mm3 (0.1-1.0); Monocytes % 6.4 % (1.7-9.3); Neutrophils # 5.2 K/mm3 (1.8-7.8); Neutrophils % 62.1 % (37.0-80.0); Platelet Count 211 K/mm3 (142-424); Red Blood Count 4.64 M/mm3 (4.60-6.20); Red Cell Distribution Width 13.6 % (11.5-17.5); White Blood Count 8.3 K/mm3 (4.8-10.8)
[2024-05-27 16:05] LABS: Albumin Level 3.7 g/dl (3.5-5.0); Chloride 107 mmol/L (98-107); Sodium 139 mmol/L (136-145)
[2024-05-27 16:08] LABS: Alanine Aminotransferase 56 U/L (12-78); Albumin/Globulin Ratio 1.5 (1.1-1.8); Alkaline Phosphatase 98 U/L (38-126); Aspartate Amino Transferase 35 U/L (17-59); Bilirubin,Total 0.7 mg/dl (0.2-1.3); Blood Urea Nitrogen 14 mg/dl (9-20); Calcium 9.1 mg/dl (8.4-10.2); Carbon Dioxide 25 mmol/L (22.0-30.0); Estimated Glomerular Filt Rate 64 ml/min (>60); GFR (African American) 77 ML/MIN (>60); Globulin 2.4 g/dL (1.3-3.2); Glucose 126 mg/dl (74-100); Total Protein,Serum 6.1 g/dl (6.3-8.2)
[2024-05-30 06:18] LABS: Calprotectin, Fecal 67 ug/g (0-120)
== END 2024-05-27 23:59 | disposition home or self-care (01) ==
LOC: LAB 15:02
PROVIDERS: PCP Student in an Organized Health Care Education/Training Program; Visit Provider Physician Assistant
DX: K50.80 Crohn's disease of both small and large intestine without complications (principal)
CPT/HCPCS: 36415; 80053; 83993; 85025; 87177; 87506

== ENCOUNTER 2024-07-10 09:50 | Outpatient (CLI) | payer BC, MEDICARE, SELFPAY ==
[2024-07-10 10:00] VITALS: BMI 34.8
[2024-07-10 10:20] LABS: Basophils # 0.1 K/mm3 (0-0.2); Basophils % 0.7 % (0.1-2.0); Eosinophils # 0.7 K/mm3 (0.0-0.4); Eosinophils % 8.2 % (0.1-12.0); Hematocrit 41.8 % (42.0-52.0); Hemoglobin 13.5 g/dL (14.1-18.0); Lymphocytes # 1.9 K/mm3 (0.7-4.5); Lymphocytes % 20.9 % (10-50); Mean Corpuscular HGB Conc 32.3 g/dL (31.8-35.4); Mean Corpuscular Hemoglobin 27.8 pg (27.0-31.2); Mean Corpuscular Volume 86.2 fl (80-94); Mean Platelet Volume 9.6 fl (7.4-10.4); Monocytes # 0.9 K/mm3 (0.1-1.0); Monocytes % 9.4 % (1.7-9.3); Neutrophils # 5.4 K/mm3 (1.8-7.8); Neutrophils % 60.4 % (37.0-80.0); Platelet Count 209 K/mm3 (142-424); Red Blood Count 4.85 M/mm3 (4.60-6.20); Red Cell Distribution Width 14.2 % (11.5-17.5)
[2024-07-10 10:22] VITALS: BP 101/69; PULSE 82; RESP 20; TEMP 36.7; O2SAT 98
[2024-07-10] MEDS: VEDOLIZUMAB 300 MG in 0.9 % SODIUM CHLORIDE 250 ML 500 MG IV (10:22)
[2024-07-10] MEDS: SODIUM CHLORIDE 0.9% 10ML FLUSH SYRINGE 10 ML IV (10:22)
[2024-07-10] MEDS: SODIUM CHLORIDE 0.9% 50ML BAG 50 ML IV (10:22)
[2024-07-10 10:31] LABS: Chloride 101 mmol/L (98-107)
[2024-07-10 10:32] LABS: Albumin Level 4.2 g/dl (3.5-5.0); Potassium 4.3 mmoL/L (3.5-5.1); Sodium 138 mmol/L (136-145)
[2024-07-10 10:34] LABS: Alanine Aminotransferase 87 U/L (12-78); Albumin/Globulin Ratio 1.4 (1.1-1.8); Alkaline Phosphatase 82 U/L (38-126); Anion Gap 11.3 mEq/L (5-15); Aspartate Amino Transferase 39 U/L (17-59); Bilirubin,Total 0.5 mg/dl (0.2-1.3); Blood Urea Nitrogen 14 mg/dl (9-20); Carbon Dioxide 30 mmol/L (22.0-30.0); Creatinine Clearance Estimated 144 mL/min (50-200); Estimated Glomerular Filt Rate 79 ml/min (>60); GFR (African American) 95 ML/MIN (>60); Globulin 3.1 g/dL (1.3-3.2); Total Protein,Serum 7.3 g/dl (6.3-8.2)
[2024-07-10 10:35] LABS: Glucose 118 mg/dl (74-100)
[2024-07-10 10:57] LABS: C-Reactive Protein 9.9 mg/L (0-4)
[2024-07-10 11:10] VITALS: BP 119/78; PULSE 82; RESP 20; O2SAT 98
== END 2024-07-10 11:10 | disposition home or self-care (01) ==
LOC: INF 09:52
PROVIDERS: Visit Provider Physician Assistant
DX: K50.90 Crohn's disease, unspecified, without complications (principal)
CPT/HCPCS: 80053; 85025; 86140; 96413; J3380

== ENCOUNTER 2024-07-10 18:41 | Emergency (ER) | payer BC, MEDICARE, SELFPAY ==
[2024-07-10 19:01] VITALS: BP 147/89; PULSE 96; RESP 18; TEMP 37; O2SAT 95; BMI 33.9
--- NOTE | 2024-07-10 21:50 | CT_ITS ---
PROCEDURE INFORMATION: Exam: CT Left Lower Extremity, Thigh Exam date and time: 07/10/2024 10:03 PM Age: 49 years old Clinical indication: Other: Concern for deep space infection TECHNIQUE: Imaging protocol: CT of the left lower extremity with intravenous contrast was performed. Exam focused on the thigh. Radiation optimization: All CT scans at this facility use at least one of these dose optimization techniques: automated exposure control; mA and/or kV adjustment per patient size (includes targeted exams where dose is matched to clinical indication); or iterative reconstruction. Contrast material: ISOVUE; Contrast volume: 120 ml; Contrast route: IV; COMPARISON: MR PELVIS WO/W CON 07/10/2023 7:48 AM FINDINGS: Bones/joints: Mild degenerative changes of the left knee. Evidence of prior left ACL of repair of the left knee. No acute fracture. Soft tissues: Diffuse subcutaneous soft tissue stranding in the medial aspect of the left thigh. No loculated fluid collection. Musculature, fascial planes and other deep soft tissues appear unremarkable. Vasculature: Fatty stranding partially surrounds midportion of the left greater saphenous vein. Moderate atherosclerotic calcification throughout the left femoral artery. No stenosis or occlusion. IMPRESSION: Subcutaneous soft tissue swelling in the medial left thigh partially surrounding of the midportion of the left greater saphenous vein. Differential diagnosis would include cellulitis versus phlebitis. No evidence of abscess or deep soft tissue infection
[2024-07-10 22:08] LABS: Lactate Venous 1.2 mmol/L (0.4-2.0); VBG HCO3 28.5 mmol/L (23-30); VBG Oxygen Saturation 41.9 % (50-70); VBG PCO2 52.4 mmol/L (35-51); VBG PH 7.35 mmol/L (7.31-7.41); VBG PO2 25.1 mmol/L (28-40); VBG Total CO2 30.1 mmol/L (23-27)
[2024-07-10] MEDS: SODIUM CHLORIDE 0.9% 10ML SYR (RAD ONLY) 10 ML IV (22:09)
[2024-07-10] MEDS: 0.9 % SODIUM CHLORIDE 50 ML VIAL IV (22:09)
[2024-07-10] MEDS: IOPAMIDOL-370 (76%);100ML BOTTLE 120 ML IV (22:09)
[2024-07-10] MEDS: VANCOMYCIN CONSULT REQUEST 1 EACH NOTAPPLIC (22:14)
[2024-07-10 22:17] LABS: Hemoglobin A1C 5.8 % (4.0-6.0)
[2024-07-10 22:24] LABS: C-Reactive Protein 10.6 mg/L (0-4)
[2024-07-10] MEDS: LACTATED RINGERS 1000ML 1,000 ML 999 ML IV (22:31)
[2024-07-10] MEDS: PIPERACILLIN/TAZO 4.5 GM in 0.9 % SODIUM CHLORIDE 100 ML IV (22:32)
[2024-07-10] MEDS: VANCOMYCIN HCL 2,000 MG in 0.9 % SODIUM CHLORIDE 250 ML 125 MG IV (22:33)
--- NOTE | 2024-07-10 22:41 | ED_ITS ---
Discharge Plan Disposition Patient Disposition: Home, Self-Care Prescriptions Prescriptions: New amoxicillin-pot clavulanate 875-125 mg tablet 1 tab PO BID 7 Days Qty: 14 0RF No Action Xarelto 20 mg tablet See Rx Instructions .ROUTE .COMPLEX Qty: 90 0RF Dose Instruction: TAKE 1 TABLET BY MOUTH ONCE DAILY WITH EVENING MEAL FOR BLOOD CLOTS Rx Instructions: TAKE 1 TABLET BY MOUTH ONCE DAILY WITH EVENING MEAL FOR BLOOD CLOTS (DME) blood-glucose meter Misc See Rx Instructions .Route Qty: 1 0RF Rx Instructions: As directed (DME) Blood Glucose Test Strip See Rx Instructions .Route Qty: 50 3RF Rx Instructions: As directed, Check FBG (DME) lancets 30 gauge misc See Rx Instructions .Route Qty: 100 0RF Rx Instructions: As directed, Check FBG lisinopril 10 mg tablet See Rx Instructions .ROUTE .COMPLEX Qty: 90 3RF Dose Instruction: Take 1 tablet by mouth once daily Rx Instructions: Take 1 tablet by mouth once daily (DME) lancets [Accu-Chek Softclix Lancets] Misc See Rx Instructions .ROUTE .MEDSUPPLY Qty: 100 Patient Comments: USE DIRECTED Rx Instructions: As directed cyanocobalamin (vitamin B-12) 1,000 mcg/mL solution 1,000 mcg SQ QMONTH Patient Comments: INJECT 1 ML (CC) INTRAMUSCULARLY ONCE EVERY MONTH (DME) BD Luer-Erik Syringe 3 mL 25 gauge x 1 syringe See Rx Instructions .ROUTE .MEDSUPPLY Qty: 1 Patient Comments: USE 1 SYRINGE ONCE EVERY MONTH Rx Instructions: As directed methylprednisolone 4 mg tablets,dose pack See Rx Instructions PO PER PKG DIR Qty: 21 0RF Rx Instructions: PO PER PKG DIR venlafaxine 75 mg capsule,extended release 24hr See Rx Instructions .ROUTE .COMPLEX Qty: 90 0RF Dose Instruction: TAKE 1 CAPSULE BY MOUTH ONCE DAILY FOR DEPRESSION Rx Instructions: TAKE 1 CAPSULE BY MOUTH ONCE DAILY FOR DEPRESSION Ozempic 0.25 mg or 0.5 mg (2 mg/3 mL) pen injector See Rx Instructions .ROUTE .COMPLEX Qty: 3 3RF Dose Instruction: INJECT 0.5MG SUBCUTANEOUSLY ONCE WEEKLY FOR 4 WEEKS Rx Instructions: INJECT 0.5MG SUBCUTANEOUSLY ONCE WEEKLY FOR 4 WEEKS vedolizumab 300 mg recon soln 300 mg SQ DIRECTED Rx Instructions: every 8 weeks Referrals Follow up/Referrals: Provider,Referral, [Primary Care Provider] - See instructions Activity Restrictions/Add. Instructions Additional Instructions/Restrictions: Take the prescribed antibiotics (Augmentin) as directed, do not skip doses, do not stop taking them early. Call your family doctor to establish care for this visit to the emergency department and schedule follow-up within 48 hours to ensure improvement. If you have any worsening of your condition or any other concerning signs or symptoms, return to the emergency department or your primary care doctor for further evaluation. Clinical Impressions Clinical Impression: Phlebitis Print Language Print Language: French Discharge ED Provider: Jack Gold General Adult HPI <Jack Gold MD - Last Filed: 07/14/24 23:25> General Chief complaint: Extremity Problem,Nontraumatic Stated complaint: LT leg pain and redness hx of blood clots Time Seen by Provider: 07/10/24 21:14 Mode of Arrival: Ambulatory Source of Information: Patient Limitations: No Limitations Description of Symptoms (Recalled from ER Triage Doc. by RN): Pt presents for dvt rule out to left leg. Pt states his leg is slight swollen, red, and tender. Pt states sx started on Sunday night. History of Present Illness HPI narrative: Please note that above description of symptoms, in this electronic medical record under categorization of recalled from ER triage doctor by RN are reflective of an initial nursing assessment, however, is not reflective of my full history and physical exam that was personally taken and clarified. Consequentially, this preceding description of symptoms, which may include the patient's categorized chief complaint in the EMR, do not reflect my personal clinical impression, and the ultimate description of history of present illness and patient stated complaints should be deferred to this section of the note. Unless stated otherwise or congruent with this section of the note, additional signs, symptoms, or incongruence should be interpreted as inaccurate with my clinical impression. Related Data Home Medications ?Medication ?Instructions ?Recorded ?Confirmed vedolizumab 300 mg intravenous 300 mg SQ DIRECTED CROHNS 02/02/23 07/10/24 solution cyanocobalamin (vitamin B-12) 1,000 mcg SQ QMONTH 10/11/23 07/10/24 1,000 mcg/mL injection solution lancets (Accu-Chek Softclix #100 ea 10/11/23 07/10/24 Lancets) syringe with needle 3 mL 25 gauge #1 ea 10/11/23 07/10/24 x 1 (BD Luer-Erik Syringe) Previous Rx's ?Medication ?Instructions ?Recorded blood sugar diagnostic (Blood #50 ea 06/21/23 Glucose Test strips) blood-glucose meter #1 ea 06/21/23 lancets 30 gauge #100 ea 06/21/23 lisinopril 10 mg tablet See Rx Instructions .Route 08/21/23 .COMPLEX #90 tabs rivaroxaban 20 mg tablet (Xarelto) See Rx Instructions .Route 03/28/24 .COMPLEX #90 tabs venlafaxine 75 mg capsule,extended See Rx Instructions .Route 04/29/24 release 24 hr .COMPLEX #90 caps semaglutide 0.25 mg or 0.5 mg (2 See Rx Instructions .Route 05/15/24 mg/3 mL) subcutaneous pen injector .COMPLEX #3 mL (Ozempic) amoxicillin 875 mg-potassium 1 tab PO BID 7 days #14 tabs 07/10/24 clavulanate 125 mg tablet methylprednisolone 4 mg tablets in See Rx Instructions PO PER PKG DIR 07/10/24 a dose pack #21 tabs Allergies Allergy/AdvReac Type Severity Reaction Status Date / Time ciprofloxacin (From Cipro) Allergy Unknown GI UPSET Verified 07/10/24 10:38 metronidazole Allergy Unknown I-HIVES Verified 07/10/24 10:38 PFS <Jack Gold MD - Last Filed: 07/14/24 23:25> [facility] Disclaimer: The information contained in this section may have been updated after the patient was seen, as this information can be updated by other users. Medical History Sinusitis Cardiomyopathy CPAP (continuous positive airway pressure) dependence Sleep apnea Snoring DVT (deep venous thrombosis) Family history of diabetes mellitus Crohns disease Depression Surgical History History of bowel resection Hx of hernia repair Hx of esophagogastroduodenoscopy Hx of colonoscopy History of repair of anterior cruciate ligament of left knee Family History Other Family history of diabetes mellitus Family history of heart cancer Family history of heart disease Social History Smoking Status: Never smoker second hand exposure: No alcohol intake: never substance use type: denies use current occupational status: disabled and other Travel in the last 8 weeks: Inside the [place] household members: spouse and children housing: apartment current occupational exposures/hazards: Yes caffeine: Yes Have you lived/traveled outside [place] in past 30 days?: No Contact w/someone who lives/traveled outside [place] past 30 days?: No Exposure to someone with infectious disease in past 14 days?: No Do you have a fever (greater than 100.4 F or 38 C)?: No Have you tested positive for COVID-19: No Exposed to someone with COVID-19 in past 14 days?: No Do you have a sore throat?: No Do you have a cough?: No Do you have any weakness?: No Do you have any diarrhea?: No Are you experiencing any unusual bleeding?: No Do you have any muscle aches/pain?: No Do you have any abdominal pain?: No Are you experiencing loss of taste or smell?: No Other Medical History Have you received the Flu Vaccine for this season: No Have you received the Pneumonia Vaccine: No <Jack Gold MD - Last Filed: 07/14/24 23:25> ROS Obtained: Yes All systems reviewed & no additional complaints except as documented Physical Exam <Jack Gold MD - Last Filed: 07/14/24 23:25> General General appearance: alert Head Head exam: atraumatic and normocephalic Eye Eye exam: Present normal appearance, PERRL and EOMI Neck Neck exam: Present normal inspection, full ROM and trachea midline Respiratory Respiratory exam: Absent respiratory distress, wheezes, stridor, accessory muscle use or prolonged expiratory phase Cardiovascular Cardiovascular exam: Present other (Pulses equal symmetric in upper and lower extremities) Abdominal Exam Abdominal exam: Present soft; Absent distention, tenderness or pulsatile mass Extremities Exam Extremities exam: Present edema (Per MDM) Neurological Exam Neurological exam: Present alert, oriented X3 and CN II-XII intact; Absent motor sensory deficit Skin Skin exam: Present warm and dry; Absent diaphoresis or erythema Medical Decision Making <Jack Gold MD - Last Filed: 07/14/24 23:25> Medical Records Medical records reviewed: Yes I reviewed the patient's medical records. Screening: Per USPSTF and CDC recommendations, given the prevalence of disease in our region, it is our hospital?s policy to screen for HIV and viral Hepatitis for all patients aged 18 and over and those with ongoing risk factors. Dale Inquiry Pt receiving controlled substance: No Dale was queried for this patient: No Vital Signs: 07/10/24 19:01 07/11/24 00:37 Temperature 98.6 F 98.4 F Temperature Source Oral Pulse Rate 88 Pulse Rate [Right] 96 H Respiratory Rate 18 20 Blood Pressure 120/77 Blood Pressure [Right Arm] 147/89 H Blood Pressure Mean [Right Arm] 108 Blood Pressure Position [Right Arm] Sitting 02 Sat by Pulse Oximetry 95 Oxygen Delivery Method Room Air Lab Data Lab Results 07/10/24 21:50: VBG pH 7.35, VBG pCO2 52.4 H, VBG pO2 25.1 L, VBG HCO3 28.5, VBG Total CO2 30.1 H, VBG O2 Saturation 41.9 L, VBG Base Excess 3.0 H, VBG Lactic Acid 1.2 07/10/24 21:59: WBC 11.3 H D, RBC 5.05, Hgb 14.0 L, Hct 43.8, MCV 86.7, MCH 27.7, MCHC 32.0, RDW 14.2, Plt Count 261, MPV 10.1, Neut % (Auto) 61.8, Lymph % (Auto) 21.7, Florence % (Auto) 8.8, Eos % (Auto) 6.7, Baso % (Auto) 0.6, Neut # (Auto) 7.0, Lymph # (Auto) 2.4, Florence # (Auto) 1.0, Eos # (Auto) 0.8 H, Baso # (Auto) 0.1, PT 9.3, INR 0.83 L, APTT 23.9, Sodium 139, Potassium 3.9, Chloride 99, Carbon Dioxide 32 H, Anion Gap 11.9, BUN 13, Creatinine 1.10, Estimated Creat Clear 127, Estimated GFR 71, Est GFR ( Amer) 85, Glucose 129 H, Hemoglobin A1c 5.8, Calcium 8.9, Total Bilirubin 0.5, AST 47, ALT 86 H, Alkaline Phosphatase 88, C-Reactive Protein 10.6 H, Total Protein 7.6, Albumin 4.4, Globulin 3.2, Albumin/Globulin Ratio 1.4 07/10/24 21:59 07/10/24 21:59 Orders (Tests/Meds): ED MEDICATIONS Discontinued Medications Generic Name Dose Route Start Last Admin Trade Name Freq PRN Reason Stop Dose Admin Piperacillin Sod/Tazobactam 100 mls @ 200 mls/hr 07/10/24 21:52 07/10/24 22:32 Sod 4.5 gm/ Sodium Chloride IV 07/10/24 22:21 200 mls/hr ONCE ONE Administration Lactated Ringer's 1,000 mls @ 999 mls/hr 07/10/24 21:50 07/10/24 22:31 Lactated Ringer's 1000 Ml Bag IV 07/10/24 22:50 999 mls/hr .Q1H1M ONE Administration Vancomycin HCl 2,000 mg/ 250 mls @ 125 mls/hr 07/10/24 22:15 07/10/24 22:33 Sodium Chloride IV 07/11/24 00:14 125 mls/hr ONCE ONE Administration Vancomycin HCl 750 mg/ Sodium 250 mls @ 125 mls/hr 07/10/24 00:15 07/10/24 23:46 Chloride IV 07/10/24 02:14 Not Given ONCE ONE Iopamidol 120 ml 07/10/24 22:09 07/10/24 22:09 Iopamidol-370 (76%);100ml Bottle IV 07/10/24 22:10 120 ml ONCE ONE Administration Miscellaneous 1 each 07/10/24 22:00 07/10/24 22:14 Vancomycin Consult Request NOTAPPLIC 08/09/24 21:59 1 each CONSULT PHARMACY DELPHINE Administration Sodium Chloride 50 ml 07/10/24 22:09 07/10/24 22:09 0.9 % Sodium Chloride 50 Ml Vial IV 07/10/24 22:10 50 ml ONCE ONE Administration Sodium Chloride 10 ml 07/10/24 22:09 07/10/24 22:09 Sodium Chloride 0.9% 10ml Syr (Rad Only) IV 08/09/24 22:08 10 ml NEEDED PRN Administration Maintain IV Site ORDERS Category Date Time Status CT femur LT w con Stat Cat Scan 07/10/24 21:50 Completed POCUS Point of Care (ER Only) Stat Exams 07/10/24 21:14 Completed CBC w/Auto Diff [Complete Blood Count Auto Diff] Stat Lab 07/10/24 21:59 Completed CMP [Comprehensive Metabolic Panel] Stat Lab 07/10/24 21:59 Completed CRP [C-Reactive Protein] Stat Lab 07/10/24 21:59 Completed Hemoglobin A1C Stat Lab 07/10/24 21:59 Completed PT INR [Prothrombin Time INR] Stat Lab 07/10/24 21:59 Completed PTT [Activated Partial Thrombo Time] Stat Lab 07/10/24 21:59 Completed Blood Culture Stat Micro 07/10/24 22:30 Results VBG [Venous Blood Gas] Stat RT 07/10/24 21:50 Completed Medical Decision Narrative: This is a 49-year-old male with history of hypertension, prediabetes, hyperlipidemia, Crohn's disease, multiple DVTs in the past currently on Xarelto presenting with left lower extremity redness and pain. This has been going on for 2 days now and does not seem to be getting better and actually seems to be getting worse. No systemic signs or symptoms, redness is spreading from the posterior aspect of his left thigh up and downward. Mildly tender. History was obtained via conversation with patient. On arrival, patient hemodynamically stable, alert, oriented x4, appropriate, GCS 15, moving all extremities spontaneously, pupils equal and reactive to light. Full physical exam performed and significant for erythema and tenderness posterior medial aspect of patient's left thigh. No palpable cord. No obvious fluctuance. Differential includes DVT, phlebitis, abscess, cellulitis, NSTI, among others. Patient placed on continuous cardiac monitoring and continuous pulse ox with initial blood pressure 147/89, heart rate 96, saturation 95% on room air. Bedside [id number] ultrasound was performed, patient has large subcutaneous abscess in the proximal groin with what appears to be cobblestoning/cellulitis as well as concern for subcutaneous gas. Also has phlebitis of greater saphenous vein. Patient was given vancomycin, Unasyn, fluids for symptomatic management and correction of underlying abnormalities. Patient taken to CT scanner. Subcutaneous abscess, no evidence of gas. Radiology read did not acknowledge abscess, radiologist was contacted regarding this. Walked me through image, consistent with lymphadenitis. Because patient at baseline without signs or symptoms of clinical decompensation, deemed appropriate for discharge. Results were relayed to patient who voiced understanding and were agreeable to outpatient management and follow up. I discussed my clinical impression with patient and answered all questions. At this time, the evidence for any other entities in the differential is insufficient to warrant any further testing or ED observation. This was explained as well. Advisory was given that persistent or worsening symptoms require further evaluation. I confirmed the understanding of this discussion. Manager Photography disclaimer Much of this encounter note is an electronic security system technician spoken language to printed text. Electronic security system technician of the spoken language may permit errors. Although I have reviewed the note, some errors may still exist. <Caroline Guillen MD - Last Filed: 07/11/24 04:21> Vital Signs: 07/10/24 19:01 07/11/24 00:37 Temperature 98.6 F 98.4 F Temperature Source Oral Pulse Rate 88 Pulse Rate [Right] 96 H Respiratory Rate 18 20 Blood Pressure 120/77 Blood Pressure [Right Arm] 147/89 H Blood Pressure Mean [Right Arm] 108 Blood Pressure Position [Right Arm] Sitting 02 Sat by Pulse Oximetry 95 Oxygen Delivery Method Room Air Lab Data Lab Results 07/10/24 21:50: VBG pH 7.35, VBG pCO2 52.4 H, VBG pO2 25.1 L, VBG HCO3 28.5, VBG Total CO2 30.1 H, VBG O2 Saturation 41.9 L, VBG Base Excess 3.0 H, VBG Lactic Acid 1.2 07/10/24 21:59: WBC 11.3 H D, RBC 5.05, Hgb 14.0 L, Hct 43.8, MCV 86.7, MCH 27.7, MCHC 32.0, RDW 14.2, Plt Count 261, MPV 10.1, Neut % (Auto) 61.8, Lymph % (Auto) 21.7, Florence % (Auto) 8.8, Eos % (Auto) 6.7, Baso % (Auto) 0.6, Neut # (Auto) 7.0, Lymph # (Auto) 2.4, [place] # (Auto) 1.0, Eos # (Auto) 0.8 H, Baso # (Auto) 0.1, PT 9.3, INR 0.83 L, APTT 23.9, Sodium 139, Potassium 3.9, Chloride 99, Carbon Dioxide 32 H, Anion Gap 11.9, BUN 13, Creatinine 1.10, Estimated Creat Clear 127, Estimated GFR 71, Est GFR ( Amer) 85, Glucose 129 H, Hemoglobin A1c 5.8, Calcium 8.9, Total Bilirubin 0.5, AST 47, ALT 86 H, Alkaline Phosphatase 88, C-Reactive Protein 10.6 H, Total Protein 7.6, Albumin 4.4, Globulin 3.2, Albumin/Globulin Ratio 1.4 Orders (Tests/Meds): ED MEDICATIONS Discontinued Medications Generic Name Dose Route Start Last Admin Trade Name Freq PRN Reason Stop Dose Admin Piperacillin Sod/Tazobactam 100 mls @ 200 mls/hr 07/10/24 21:52 07/10/24 22:32 Sod 4.5 gm/ Sodium Chloride IV 07/10/24 22:21 200 mls/hr ONCE ONE Administration Lactated Ringer's 1,000 mls @ 999 mls/hr 07/10/24 21:50 07/10/24 22:31 Lactated Ringer's 1000 Ml Bag IV 07/10/24 22:50 999 mls/hr .Q1H1M ONE Administration Vancomycin HCl 2,000 mg/ 250 mls @ 125 mls/hr 07/10/24 22:15 07/10/24 22:33 Sodium Chloride IV 07/11/24 00:14 125 mls/hr ONCE ONE Administration Vancomycin HCl 750 mg/ Sodium 250 mls @ 125 mls/hr 07/10/24 00:15 07/10/24 23:46 Chloride IV 07/10/24 02:14 Not Given ONCE ONE Iopamidol 120 ml 07/10/24 22:09 07/10/24 22:09 Iopamidol-370 (76%);100ml Bottle IV 07/10/24 22:10 120 ml ONCE ONE Administration Miscellaneous 1 each 07/10/24 22:00 07/10/24 22:14 Vancomycin Consult Request NOTAPPLIC 08/09/24 21:59 1 each CONSULT PHARMACY DELPHINE Administration Sodium Chloride 50 ml 07/10/24 22:09 07/10/24 22:09 0.9 % Sodium Chloride 50 Ml Vial IV 07/10/24 22:10 50 ml ONCE ONE Administration Sodium Chloride 10 ml 07/10/24 22:09 07/10/24 22:09 Sodium Chloride 0.9% 10ml Syr (Rad Only) IV 08/09/24 22:08 10 ml NEEDED PRN Administration Maintain IV Site ORDERS Category Date Time Status CT femur LT w con Stat Cat Scan 07/10/24 21:50 Completed POCUS Point of Care (ER Only) Stat Exams 07/10/24 21:14 Completed CBC w/Auto Diff [Complete Blood Count Auto Diff] Stat Lab 07/10/24 21:59 Completed CMP [Comprehensive Metabolic Panel] Stat Lab 07/10/24 21:59 Completed CRP [C-Reactive Protein] Stat Lab 07/10/24 21:59 Completed Hemoglobin A1C Stat Lab 07/10/24 21:59 Completed PT INR [Prothrombin Time INR] Stat Lab 07/10/24 21:59 Completed PTT [Activated Partial Thrombo Time] Stat Lab 07/10/24 21:59 Completed Blood Culture Stat Micro 07/10/24 22:30 Results VBG [Venous Blood Gas] Stat RT 07/10/24 21:50 Completed Medical Decision Narrative: This is a 49-year-old male with history of hypertension, prediabetes, hyperlipidemia, Crohn's disease, multiple DVTs in the past currently on Xarelto presenting with left lower extremity redness and pain. This has been going on for 2 days now and does not seem to be getting better and actually seems to be getting worse. No systemic signs or symptoms, redness is spreading from the posterior aspect of his left thigh up and downward. Mildly tender. History was obtained via conversation with patient. On arrival, patient hemodynamically stable, alert, oriented x4, appropriate, GCS 15, moving all extremities spontaneously, pupils equal and reactive to light. Full physical exam performed and significant for erythema and tenderness posterior medial aspect of patient's left thigh. No palpable cord. No obvious fluctuance. Differential includes DVT, phlebitis, abscess, cellulitis, NSTI, among others. Patient placed on continuous cardiac monitoring and continuous pulse ox with initial blood pressure 147/89, heart rate 96, saturation 95% on room air. Bedside [id number] ultrasound was performed, patient has large subcutaneous abscess in the proximal groin with what appears to be cobblestoning/cellulitis as well as concern for subcutaneous gas. Also has phlebitis of greater saphenous vein. Patient was given vancomycin, Unasyn, fluids for symptomatic management and correction of underlying abnormalities. Patient taken to CT scanner. Subcutaneous abscess, no evidence of gas. Radiology read did not acknowledge abscess, radiologist was contacted regarding this. Walked me through image, consistent with lymphadenitis. Because patient at baseline without signs or symptoms of clinical decompensation, deemed appropriate for discharge. Results were relayed to patient who voiced understanding and were agreeable to outpatient management and follow up. I discussed my clinical impression with patient and answered all questions. At this time, the evidence for any other entities in the differential is insufficient to warrant any further testing or ED observation. This was explained as well. Advisory was given that persistent or worsening symptoms require further evaluation. I confirmed the understanding of this discussion. Manager Photography disclaimer Much of this encounter note is an electronic security system technician spoken language to printed text. Electronic security system technician of the spoken language may permit errors. Although I have reviewed the note, some errors may still exist. Guillen: I assumed care of this patient at 2300 hrs. I agree with the assessment and plan from Dr. Gold few labs were still pending when he handed this patient off to me. I reviewed labs which are nonactionable at this time and consistent with his findings of lymphadenitis. Patient has been prescribed Augmentin for outpatient follow-up. Patient was given instructions on symptomatic management, follow up instructions, and return precautions for the emergency department. Patient indicated understanding and was discharged in stable condition. Procedures <Jack Gold MD - Last Filed: 07/14/24 23:25> Limited Ultrasound Indication:: Limited DVT ultrasound Indication: Limited compression ultrasonography of the left lower extremity was performed to evaluate for non-compressibility of the deep veins in the patient. The ultrasound was performed with the following indications, as noted in the H&P: Left lower extremity pain Identified structures: Left common femoral vein, femoral vein, popliteal vein were examined. Findings: Lower Extremity: Left CFV: Good compressibility Left FV good compressibility Left Popliteal vein: Good compressibility Impression: Normal DVT ultrasound of the left lower extremity without evidence of thrombus Saphenous vein phlebitis Deep abscess Images were saved to permanent archive The study was technically adequate CPT: 17097-51-SP [id number] (complete bilateral study) This study was performed by me, and I personally interpreted all images/videos. Based on my clinical judgement, these images were adequate and did not necessitate further imaging Critical Care <Jack Gold MD - Last Filed: 07/14/24 23:25> Critical Care Time Critical Care Time: No
--- NOTE | 2024-07-10 23:32 | PC.NURSE ---
Called to check on results for lab work spoke with roxanna in lab and he stated to me that he does not have any blood for this patient. Relayed this to his nurse taking care of him.
[2024-07-10 23:38] LABS: Basophils # 0.1 K/mm3 (0-0.2); Basophils % 0.6 % (0.1-2.0); Eosinophils # 0.8 K/mm3 (0.0-0.4); Eosinophils % 6.7 % (0.1-12.0); Hematocrit 43.8 % (42.0-52.0); Lymphocytes # 2.4 K/mm3 (0.7-4.5); Lymphocytes % 21.7 % (10-50); Mean Corpuscular Hemoglobin 27.7 pg (27.0-31.2); Mean Corpuscular Volume 86.7 fl (80-94); Mean Platelet Volume 10.1 fl (7.4-10.4); Monocytes % 8.8 % (1.7-9.3); Neutrophils % 61.8 % (37.0-80.0); Platelet Count 261 K/mm3 (142-424); Red Blood Count 5.05 M/mm3 (4.60-6.20); Red Cell Distribution Width 14.2 % (11.5-17.5); White Blood Count 11.3 K/mm3 (4.8-10.8)
[2024-07-10 23:44] LABS: Albumin Level 4.4 g/dl (3.5-5.0); Chloride 99 mmol/L (98-107); Potassium 3.9 mmoL/L (3.5-5.1); Sodium 139 mmol/L (136-145)
[2024-07-10 23:46] LABS: Activated Partial Thrombo Time 23.9 seconds (22.5-28.5); Blood Urea Nitrogen 13 mg/dl (9-20); Creatinine Clearance Estimated 127 mL/min (50-200); Estimated Glomerular Filt Rate 71 ml/min (>60); GFR (African American) 85 ML/MIN (>60); INR 0.83 (0.9-1.1); Prothrombin Time 9.3 seconds (9.2-12.1)
[2024-07-10 23:47] LABS: Alanine Aminotransferase 86 U/L (12-78); Albumin/Globulin Ratio 1.4 (1.1-1.8); Alkaline Phosphatase 88 U/L (38-126); Anion Gap 11.9 mEq/L (5-15); Aspartate Amino Transferase 47 U/L (17-59); Bilirubin,Total 0.5 mg/dl (0.2-1.3); Calcium 8.9 mg/dl (8.4-10.2); Carbon Dioxide 32 mmol/L (22.0-30.0); Globulin 3.2 g/dL (1.3-3.2); Glucose 129 mg/dl (74-100); Total Protein,Serum 7.6 g/dl (6.3-8.2)
[2024-07-11 00:37] VITALS: BP 120/77; PULSE 88; RESP 20; TEMP 36.9; O2SAT 98
== END 2024-07-11 00:45 | disposition home or self-care (01) ==
PROVIDERS: Emergency Provider Emergency Medicine
DX: I80.9 Phlebitis and thrombophlebitis of unspecified site (principal)
CPT/HCPCS: 73701; 80053; 82803; 83036; 85025; 85610; 85730; 86140; 87040; 96365; 96366; 96367; 99285; J2543; J3370; J7120; Q9967

== ENCOUNTER 2024-09-15 11:21 | Outpatient (CLI) | payer BC, MEDICARE, SELFPAY ==
[2024-09-15 11:29] VITALS: BMI 34.7
[2024-09-15 11:42] LABS: Basophils % 0.6 % (0.1-2.0); Eosinophils # 0.8 Kmm3 (0.0-0.4); Eosinophils % 11.9 % (0.1-12.0); Hematocrit 38.2 % (42.0-52.0); Hemoglobin 12.6 g/dL (14.1-18.0); Lymphocytes # 1.7 K/mm3 (0.7-4.5); Lymphocytes % 24.3 % (10-50); Mean Corpuscular Hemoglobin 28.6 pg (27.0-31.2); Mean Corpuscular Volume 86.8 fl (80-94); Mean Platelet Volume 9.5 fl (7.4-10.4); Monocytes # 0.5 K/mm3 (0.1-1.0); Neutrophils # 3.9 K/mm3 (1.8-7.8); Neutrophils % 56.1 % (37.0-80.0); Nucleated Red Blood Cells # 0 10^3/uL; Nucleated Red Blood Cells % 0 %; Platelet Count 184 K/mm3 (142-424); Red Cell Distribution Width 14.4 % (11.5-17.5); Red Cell Distribution Width-SD 45.5 fL
[2024-09-15 11:51] VITALS: BP 136/84; PULSE 94; RESP 16; TEMP 37; O2SAT 98
[2024-09-15] MEDS: SODIUM CHLORIDE 0.9% 10ML FLUSH SYRINGE 10 ML IV (11:51)
[2024-09-15] MEDS: VEDOLIZUMAB 300 MG in 0.9 % SODIUM CHLORIDE 250 ML 500 MG IV (11:51)
[2024-09-15] MEDS: SODIUM CHLORIDE 0.9% 50ML BAG 50 ML IV (11:51)
[2024-09-15 11:52] LABS: Albumin Level 3.6 g/dl (3.5-5.0); Chloride 109 mmol/L (98-107); Potassium 3.7 mmoL/L (3.5-5.1); Sodium 138 mmol/L (136-145)
[2024-09-15 11:55] LABS: Alanine Aminotransferase 48 U/L (12-78); Albumin/Globulin Ratio 1.2 (1.1-1.8); Alkaline Phosphatase 78 U/L (38-126); Anion Gap 9.7 mEq/L (5-15); Aspartate Amino Transferase 35 U/L (17-59); Bilirubin,Total 0.6 mg/dl (0.2-1.3); Blood Urea Nitrogen 11 mg/dl (9-20); Calcium 8.4 mg/dl (8.4-10.2); Carbon Dioxide 23 mmol/L (22.0-30.0); Creatinine Clearance Estimated 144 mL/min (50-200); Estimated Glomerular Filt Rate 79 ml/min (>60); GFR (African American) 95 ML/MIN (>60); Globulin 3.1 g/dL (1.3-3.2); Glucose 183 mg/dl (74-100); Total Protein,Serum 6.7 g/dl (6.3-8.2)
[2024-09-15 12:00] LABS: C-Reactive Protein 3.2 mg/L (0-4)
[2024-09-15 12:20] VITALS: BP 120/66; PULSE 88; RESP 14; O2SAT 98
[2024-09-15 12:45] VITALS: BP 125/69; PULSE 91; RESP 14; TEMP 37; O2SAT 97
== END 2024-09-15 12:50 | disposition home or self-care (01) ==
LOC: INF 11:22
PROVIDERS: PCP Nurse Practitioner Family; Visit Provider Physician Assistant
DX: K50.90 Crohn's disease, unspecified, without complications (principal)
CPT/HCPCS: 80053; 85025; 86140; 96413; J3380

== ENCOUNTER 2024-10-17 09:40 | Emergency (ER) | payer BC, MEDICARE, SELFPAY ==
[2024-10-17 09:55] VITALS: BP 109/83; PULSE 79; RESP 17; TEMP 36.7; O2SAT 99; BMI 33.9
--- NOTE | 2024-10-17 09:56 | HMH.EDGENADL ---
Discharge Plan Disposition Patient Disposition: Home, Self-Care Prescriptions Prescriptions: New prednisone 20 mg tablet 20 mg PO BID 5 Days Qty: 10 0RF doxycycline hyclate 100 mg capsule 100 mg PO BID 7 Days Qty: 14 0RF No Action lisinopril 10 mg tablet 10 mg PO DAILY Qty: 90 3RF Xarelto 20 mg tablet 20 mg PO DAILY Qty: 90 3RF cyanocobalamin (vitamin B-12) 1,000 mcg/mL solution 1,000 mcg SQ QMONTH Qty: 10 1RF venlafaxine 75 mg capsule,extended release 24hr 75 mg PO DAILY Qty: 90 3RF (DME) BD Luer-Erik Syringe 3 mL 25 gauge x 1 syringe See Rx Instructions .ROUTE .MEDSUPPLY Qty: 100 0RF Rx Instructions: monthly for B12 IM injection (DME) blood-glucose meter Misc See Rx Instructions .Route Qty: 1 0RF Rx Instructions: As directed (DME) Blood Glucose Test Strip See Rx Instructions .Route Qty: 50 3RF Rx Instructions: As directed, Check FBG (DME) lancets 30 gauge misc See Rx Instructions .Route Qty: 100 0RF Rx Instructions: As directed, Check FBG (DME) lancets [Accu-Chek Softclix Lancets] Misc See Rx Instructions .ROUTE .MEDSUPPLY Qty: 100 Patient Comments: USE DIRECTED Rx Instructions: As directed Ozempic 0.25 mg or 0.5 mg (2 mg/3 mL) pen injector 0.5 mg SQ QWEEK Patient Comments: INJECT 0.5 MG SUBCUTANEOUSLY ONCE A WEEK vedolizumab 300 mg recon soln 300 mg SQ DIRECTED Rx Instructions: every 8 weeks Referrals Follow up/Referrals: Joseline Guajardo MD [Referring] - See instructions Angelica Jones APRN [Primary Care Provider] - See instructions Activity Restrictions/Add. Instructions Additional Instructions/Restrictions: You are being prescribed steroids and doxycycline. Take these as prescribed. Follow-up with your primary care physician early next week. You are also being referred to the dermatology team, Dr. Guajardo. Call the office at this number to set up an appointment: [phone]. If you develop any new or worsening symptoms, or if you become concerned for your health for any reason, return to the emergency department for evaluation Clinical Impressions Clinical Impression: Palpable purpura Instructions Patient Instructions: DI for Skin Abscess Print Language Print Language: Syriac Discharge ED Provider: Ru Marcum General Adult HPI General Chief complaint: Skin/Abscess/Foreign Body Stated complaint: Allergic Reaction Both Legs Time Seen by Provider: 10/17/24 09:49 History of Present Illness HPI narrative: Abner Lambert is a 49y male with a history of DVT on Xarelto, hernia repair, bowel resection, Crohn's disease who presents to the emergency department for complaints of a rash to both of his legs that is spread to his lower abdomen. Patient states that the rashes have been present for approximately 2 weeks. He states is not painful and does not itch. 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 He notes that he also is outside often and has ticks on him constantly. He notes that a friend of his was recently diagnosed with Lyme disease. He was seen in urgent treatment center and sent here for vasculitis workup. Patient has no abdominal pain no fevers. He does complain of pain in both of his knees. Related Data Home Medications ?Medication ?Instructions ?Recorded ?Confirmed vedolizumab 300 mg intravenous 300 mg SQ DIRECTED CROHNS 02/02/23 10/17/24 solution lancets (Accu-Chek Softclix #100 ea 10/11/23 08/04/24 Lancets) semaglutide 0.25 mg or 0.5 mg (2 0.5 mg SQ QWEEK 08/04/24 10/17/24 mg/3 mL) subcutaneous pen injector (Ozempic) Previous Rx's ?Medication ?Instructions ?Recorded blood sugar diagnostic (Blood #50 ea 06/21/23 Glucose Test strips) blood-glucose meter #1 ea 06/21/23 lancets 30 gauge #100 ea 06/21/23 cyanocobalamin (vitamin B-12) 1,000 mcg SQ QMONTH #10 mL 07/24/24 1,000 mcg/mL injection solution lisinopril 10 mg tablet 10 mg PO DAILY #90 tabs 07/24/24 rivaroxaban 20 mg tablet (Xarelto) 20 mg PO DAILY #90 tabs 07/24/24 syringe with needle 3 mL 25 gauge #100 ea 07/24/24 x 1 (BD Luer-Erik Syringe) venlafaxine 75 mg capsule,extended 75 mg PO DAILY #90 caps 07/24/24 release 24 hr doxycycline hyclate 100 mg capsule 100 mg PO BID 7 days #14 caps 10/17/24 prednisone 20 mg tablet 20 mg PO BID 5 days #10 tabs 10/17/24 Allergies Allergy/AdvReac Type Severity Reaction Status Date / Time ciprofloxacin (From Cipro) Allergy Unknown GI UPSET Verified 10/17/24 09:18 metronidazole Allergy Unknown I-HIVES Verified 10/17/24 09:18 [facility] Disclaimer: The information contained in this section may have been updated after the patient was seen, as this information can be updated by other users. Medical History (Updated 10/17/24 @ 11:53 by Ru Marcum MD) Rash and nonspecific skin eruption Sinusitis Encounter to establish care Phlebitis DVT (deep venous thrombosis) Pain in right leg Anterior tibialis tendinitis Family history of sudden cardiac Dyspnea Family history of ischemic heart disease Cardiomyopathy CPAP (continuous positive airway pressure) dependence Sleep apnea Snoring DVT (deep venous thrombosis) Family history of diabetes mellitus Crohns disease Depression Surgical History History of bowel resection Hx of hernia repair Hx of esophagogastroduodenoscopy Hx of colonoscopy History of repair of anterior cruciate ligament of left knee Family History Other Family history of diabetes mellitus Family history of heart cancer Family history of heart disease Social History Smoking Status: Current every day smoker second hand exposure: No alcohol intake: never substance use type: denies use current occupational status: disabled and other Travel in the last 8 weeks?: Inside the [place] household members: spouse and children housing: apartment current occupational exposures/hazards: Yes caffeine: Yes Have you lived/traveled outside [place] in past 30 days?: No Contact w/someone who lives/traveled outside US past 30 days?: No Exposure to someone with infectious disease in past 14 days?: No Do you have a fever (greater than 100.4 F or 38 C)?: No Have you tested positive for COVID-19?: No Exposed to someone with COVID-19 in past 14 days?: No Do you have a sore throat?: No Do you have a cough?: No Do you have any weakness?: No Do you have any diarrhea?: No Are you experiencing any unusual bleeding?: No Do you have any muscle aches/pain?: No Do you have any abdominal pain?: No Are you experiencing loss of taste or smell?: No Other Medical History Have you received the Flu Vaccine for this season: No Have you received the Pneumonia Vaccine: No ROS Obtained: Yes Systems reviewed as appropriate & no additional complaints except as documented Physical Exam General General appearance: alert and in no apparent distress Head Head exam: atraumatic Eye Eye exam: Present normal appearance ENT ENT exam: Present normal external ear exam Neck Neck exam: Present full ROM Chest Chest inspection: Present symmetric chest wall rise Respiratory Respiratory exam: Present normal lung sounds bilaterally; Absent respiratory distress Cardiovascular Cardiovascular exam: Present regular rate and normal rhythm Abdominal Exam Abdominal exam: Present soft; Absent tenderness or guarding exam: Present deferred Extremities Exam Extremities exam: Present normal inspection Back Exam Back exam: Present normal inspection Neurological Exam Neurological exam: Present alert and oriented X3 Psychiatric Psychiatric exam: Present normal affect Skin Skin exam: Present warm, dry and rash (Palpable purpuric rash most highly concentrated in the distal bilateral lower extremities but sparing the soles. This rash extends up to the proximal thighs and lower abdomen. No joint effusions.. The rash is nonblanchable.) Medical Decision Making Medical Records Screening: Per USPSTF and CDC recommendations, given the prevalence of disease in our region, it is our hospital?s policy to screen for HIV and viral Hepatitis for all patients aged 18 and over and those with ongoing risk factors. Dale Inquiry Pt receiving controlled substance: No Vital Signs: 10/17/24 09:55 10/17/24 10:48 10/17/24 11:57 Temperature 98.1 F 98 F Temperature Source Oral Pulse Rate 74 70 Pulse Rate [Left Radial] 79 Respiratory Rate 17 16 16 Blood Pressure 127/88 119/84 Blood Pressure [Right Arm] 109/83 L Blood Pressure Mean [Right Arm] 91 Blood Pressure Source [Right Arm] Automatic Cuff Blood Pressure Position [Right Arm] Sitting 02 Sat by Pulse Oximetry 99 98 Oxygen Delivery Method Room Air Room Air Lab Data Lab Results 10/17/24 10:21: WBC 6.0, RBC 4.75, Hgb 13.5 L, Hct 41.2 L, MCV 86.7, MCH 28.4, MCHC 32.8, RDW 13.6, Plt Count 172, MPV 9.6, Neut % (Auto) 56.7, Lymph % (Auto) 25.5, [place] % (Auto) 8.6, Eos % (Auto) 7.8, Baso % (Auto) 1.2, Neut # (Auto) 3.4, Lymph # (Auto) 1.5, [place] # (Auto) 0.5, Eos # (Auto) 0.5 H, Baso # (Auto) 0.1, ESR 13, PT 11.8, INR 1.07, APTT 28.6, Sodium 137, Potassium 3.9, Chloride 104, Carbon Dioxide 29, Anion Gap 7.9, BUN 14, Creatinine 1.20, Estimated Creat Clear 117, Estimated GFR 64, Est GFR ( Amer) 77, Glucose 114 H, Calcium 9.0, Total Bilirubin 0.9, AST 28, ALT 31, Alkaline Phosphatase 81, C-Reactive Protein 10.0 H, Total Protein 6.8, Albumin 4.0, Globulin 2.8, Albumin/Globulin Ratio 1.4 10/17/24 11:15: Urine Color Yellow, Urine Appearance Clear, Urine pH 6.0, Ur Specific [place] 1.025, Urine Protein Negative, Urine Glucose (UA) Negative, Urine Ketones Negative, Urine Blood 2+ A, Urine Nitrate Negative, Urine Bilirubin Negative, Urine Urobilinogen 0.2, Ur Leukocyte Esterase Negative, Urine RBC 10-20, Urine WBC Occasional, Ur Squamous Epith Cells Occasional, Urine Bacteria Trace 10/17/24 10:21 10/17/24 10:21 Orders (Tests/Meds): ORDERS Category Date Time Status CBC w/Auto Diff [Complete Blood Count Auto Diff] Stat Lab 10/17/24 10:21 Completed CMP [Comprehensive Metabolic Panel] Stat Lab 10/17/24 10:21 Completed CRP [C-Reactive Protein] Stat Lab 10/17/24 10:21 Completed ESR [Erythrocyte Sedimentation Rate] Stat Lab 10/17/24 10:21 Completed PT INR [Prothrombin Time INR] Stat Lab 10/17/24 10:21 Completed PTT [Activated Partial Thrombo Time] Stat Lab 10/17/24 10:21 Completed UA [Urinalysis and Microscopic] Stat Lab 10/17/24 11:15 Completed Medical Decision Narrative: Abner Lambert is a 49y male with a history of DVT on Xarelto, hernia repair, bowel resection, Crohn's disease who presents to the emergency department for complaints of a rash to both of his legs that is spread to his lower abdomen. Patient states that the rashes have been present for approximately 2 weeks. He states is not painful and does not itch. 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 He notes that he also is outside often and has ticks on him constantly. He notes that a friend of his was recently diagnosed with Lyme disease. He was seen in urgent treatment center and sent here for vasculitis workup. Patient has no abdominal pain no fevers. He does complain of pain in both of his knees. On arrival, patient is normotensive, afebrile, breathing comfortably on room air with appropriate oxygen saturation. Heart rate within normal limits. Physical exam, as stated above, revealed an overall well-appearing male in no distress. He has purpuric rash that is mildly raised and palpable in the distal bilateral lower extremities that extends all the way up to the proximal thighs and lower abdomen. These are nonblanchable and do not seem tender. They spare the soles of the feet. Patient does not have any swelling of the joint spaces. Differential diagnosis includes, but is not limited to: Small vessel vasculitis (Henoch-Mahad?nlein purpura, ANCA associated vasculitides such as granulomatosis with polyangiitis, eosinophilic granulomatous with polyangiitis, Behcet's disease,), medium vessel disease such as polyarteritis nodosa, tickborne illness, coagulopathy, systemic lupus erythematous, among others. Workup in the emergency department included: CBC, CMP, PT/INR, APTT, ESR, CRP, urinalysis Workup was significant for very mildly elevated CRP at 10 but ESR within normal limits. No leukocytosis. No clinically significant anemia. Urine without protein or evidence of infection. 2+ blood in urine with 10-20 red blood cells on microscopy. PT/INR and APTT unremarkable. Patient's lab work is grossly reassuring. Patient does have small amount of blood in his urine but is otherwise unremarkable. 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 Will send with prescription for prednisone for 5 days. Given patient's recent tick exposure, we will also send with prescription for doxycycline. Patient instructed to follow-up closely with his primary care physician next week to ensure improvement and is also being given referral to Dr. Guajardo with dermatology.. If patient's symptomatology improved, he may require further workup/biopsies to evaluate these lesions further, however his workup is reassuring today. Patient was given return precautions. All questions were answered. He demonstrated understanding and was in agreement this plan. He was then discharged from the emergency department in stable condition. Critical Care Critical Care Time Critical Care Time: No
[2024-10-17 10:30] LABS: Basophils # 0.1 K/mm3 (0-0.2); Basophils % 1.2 % (0.1-2.0); Eosinophils # 0.5 Kmm3 (0.0-0.4); Eosinophils % 7.8 % (0.1-12.0); Hematocrit 41.2 % (42.0-52.0); Hemoglobin 13.5 g/dL (14.1-18.0); Immature Granulocytes # 0.01 10^3uL; Immature Granulocytes % 0.2 %; Lymphocytes # 1.5 K/mm3 (0.7-4.5); Lymphocytes % 25.5 % (10-50); Mean Corpuscular HGB Conc 32.8 g/dL (31.8-35.4); Mean Corpuscular Hemoglobin 28.4 pg (27.0-31.2); Mean Corpuscular Volume 86.7 fl (80-94); Mean Platelet Volume 9.6 fl (7.4-10.4); Monocytes # 0.5 K/mm3 (0.1-1.0); Monocytes % 8.6 % (1.7-9.3); Neutrophils # 3.4 K/mm3 (1.8-7.8); Neutrophils % 56.7 % (37.0-80.0); Nucleated Red Blood Cells # 0 10^3/uL; Nucleated Red Blood Cells % 0 %; Platelet Count 172 K/mm3 (142-424); Red Blood Count 4.75 M/mm3 (4.60-6.20); Red Cell Distribution Width 13.6 % (11.5-17.5); Red Cell Distribution Width-SD 43.4 fL
[2024-10-17 10:37] LABS: Chloride 104 mmol/L (98-107); Potassium 3.9 mmoL/L (3.5-5.1); Sodium 137 mmol/L (136-145)
[2024-10-17 10:40] LABS: Alanine Aminotransferase 31 U/L (12-78); Albumin/Globulin Ratio 1.4 (1.1-1.8); Alkaline Phosphatase 81 U/L (38-126); Anion Gap 7.9 mEq/L (5-15); Aspartate Amino Transferase 28 U/L (17-59); Bilirubin,Total 0.9 mg/dl (0.2-1.3); Blood Urea Nitrogen 14 mg/dl (9-20); Carbon Dioxide 29 mmol/L (22.0-30.0); Creatinine Clearance Estimated 117 mL/min (50-200); Estimated Glomerular Filt Rate 64 ml/min (>60); GFR (African American) 77 ML/MIN (>60); Globulin 2.8 g/dL (1.3-3.2); Glucose 114 mg/dl (74-100); Total Protein,Serum 6.8 g/dl (6.3-8.2)
[2024-10-17 10:42] LABS: Activated Partial Thrombo Time 28.6 seconds (22.8-30.6); INR 1.07 (0.9-1.1); Prothrombin Time 11.8 seconds (10.1-12.5)
[2024-10-17 10:48] VITALS: BP 127/88; PULSE 74; RESP 16; O2SAT 98
[2024-10-17 11:20] LABS: Microscopic, Urine URINE MICROSCOPIC (MICROSCOPIC)
[2024-10-17 11:28] LABS: Appearance,Urine CLEAR (Clear); Bilirubin,Urine Negative (Negative); Blood, Urine 2+ (Negative); Color,Urine YELLOW (Yellow); Glucose,Urine (UA) Negative (Negative); Ketones,Urine Negative (Negative); Leukocyte Esterase,Urine Negative (Negative); Nitrate,Urine Negative (Negative); Protein,Urine Negative (Negative); Specific Gravity, Urine 1.025 (1.005-1.030); Urobilinogen,Urine 0.2 EU/dl (0.2)
[2024-10-17 11:38] LABS: Bacteria,Urine Trace /lpf; Squamous Epithelial Cell,Urine Occasional #/hpf (0-5); WBC,Urine Occasional #/hpf (0-3)
[2024-10-17 11:39] LABS: Erythrocyte Sedimentation Rate 13 mm/hr (0-20)
[2024-10-17 11:57] VITALS: BP 119/84; PULSE 70; RESP 16; TEMP 36.6
== END 2024-10-17 11:57 | disposition home or self-care (01) ==
PROVIDERS: Emergency Provider Student in an Organized Health Care Education/Training Program; PCP Nurse Practitioner Family
DX: D69.2 Other nonthrombocytopenic purpura (principal); I82.1 Thrombophlebitis migrans; K50.00 Crohn's disease of small intestine without complications; F17.210 Nicotine dependence, cigarettes, uncomplicated
CPT/HCPCS: 80053; 81001; 85025; 85610; 85651; 85730; 86140; 99284

== ENCOUNTER 2024-10-23 09:18 | Outpatient (CLI) | payer BC, MEDICARE, SELFPAY ==
[2024-10-23 14:46] LABS: Microscopic, Urine URINE MICROSCOPIC (MICROSCOPIC)
[2024-10-23 15:14] LABS: Basophils # 0.1 K/mm3 (0-0.2); Basophils % 0.6 % (0.1-2.0); Eosinophils # 0.2 Kmm3 (0.0-0.4); Eosinophils % 2.2 % (0.1-12.0); Hematocrit 43.3 % (42.0-52.0); Immature Granulocytes # 0.02 10^3uL; Immature Granulocytes % 0.2 %; Lymphocytes # 1.3 K/mm3 (0.7-4.5); Lymphocytes % 14.8 % (10-50); Mean Corpuscular HGB Conc 32.3 g/dL (31.8-35.4); Mean Corpuscular Hemoglobin 28.4 pg (27.0-31.2); Mean Corpuscular Volume 87.8 fl (80-94); Mean Platelet Volume 10.5 fl (7.4-10.4); Monocytes # 0.6 K/mm3 (0.1-1.0); Monocytes % 6.7 % (1.7-9.3); Neutrophils # 6.5 K/mm3 (1.8-7.8); Neutrophils % 75.5 % (37.0-80.0); Nucleated Red Blood Cells # 0 10^3/uL; Nucleated Red Blood Cells % 0 %; Platelet Count 221 K/mm3 (142-424); Red Blood Count 4.93 M/mm3 (4.60-6.20); Red Cell Distribution Width 13.9 % (11.5-17.5); Red Cell Distribution Width-SD 44.5 fL; White Blood Count 8.7 K/mm3 (4.8-10.8)
[2024-10-23 15:20] LABS: Appearance,Urine CLEAR (Clear); Bilirubin,Urine Negative (Negative); Blood, Urine 1+ (Negative); Color,Urine YELLOW (Yellow); Glucose,Urine (UA) Negative (Negative); Ketones,Urine Negative (Negative); Leukocyte Esterase,Urine Negative (Negative); Nitrate,Urine Negative (Negative); Protein,Urine Negative (Negative); Specific Gravity, Urine 1.015 (1.005-1.030); Urobilinogen,Urine 0.2 EU/dl (0.2)
[2024-10-23 15:51] LABS: Chol/HDL Ratio 2.7 (1-3.5); Cholesterol 127 mg/dl (140-200); HDL Cholesterol 47 mg/dl (40-60); Triglycerides 71 mg/dl (30-150); VLDL Cholesterol 14 mg/dL (0-40)
[2024-10-23 15:56] LABS: Squamous Epithelial Cell,Urine Occasional #/hpf (0-5); WBC,Urine Occasional #/hpf (0-3)
[2024-10-23 15:58] LABS: Creatinine,Urine Random 103 mg/dL (Not Estab.)
[2024-10-23 16:04] LABS: Direct LDL Cholesterol 72.74 mg/dL (100-129)
[2024-10-23 16:07] LABS: Microalbumin/Creatinine Ratio 17.9
[2024-10-23 16:38] LABS: Hemoglobin A1C 5.5 % (4.0-6.0)
[2024-10-24 16:33] LABS: Alanine Aminotransferase 28 U/L (12-78); Albumin/Globulin Ratio 1.5 (1.1-1.8); Alkaline Phosphatase 73 U/L (38-126); Anion Gap 12.6 mEq/L (5-15); Aspartate Amino Transferase 25 U/L (17-59); Bilirubin,Total 0.6 mg/dl (0.2-1.3); Blood Urea Nitrogen 22 mg/dl (9-20); Carbon Dioxide 27 mmol/L (22.0-30.0); Chloride 103 mmol/L (98-107); Estimated Glomerular Filt Rate 79 ml/min (>60); GFR (African American) 95 ML/MIN (>60); Globulin 2.7 g/dL (1.3-3.2); Glucose 99 mg/dl (74-100); Potassium 4.6 mmoL/L (3.5-5.1); Sodium 138 mmol/L (136-145); Total Protein,Serum 6.7 g/dl (6.3-8.2)
[2024-10-24 16:38] LABS: C-Reactive Protein 2.1 mg/L (0-4)
[2024-10-24 17:22] LABS: Vitamin B12 364 pg/mL (239-931)
[2024-10-24 17:42] LABS: 25-OH Vitamin D, Total < 12.8 ng/mL (30-100)
[2024-10-25 16:13] LABS: Lyme B. burgdorferi PCR Blood Negative (Negative)
[2024-10-27 09:31] LABS: F001-IgE Egg White <0.10 kU/L (Class 0); F003-IgE Codfish <0.10 kU/L (Class 0); F004-IgE Wheat <0.10 kU/L (Class 0); F010-IgE Sesame Seed <0.10 kU/L (Class 0); F013-IgE Peanut <0.10 kU/L (Class 0); F014-IgE Soybean <0.10 kU/L (Class 0); F024-IgE Shrimp <0.10 kU/L (Class 0); F026-IgE Pork 0.84 kU/L (Class II); F027-IgE Beef 2.33 kU/L (Class III); F088-IgE Lamb 0.82 kU/L (Class II); F256-IgE Walnut <0.10 kU/L (Class 0); F338-IgE Scallop <0.10 kU/L (Class 0); Immunoglobulin E, Total 305 IU/mL (6-495); O215-IgE Alpha-Gal 7.47 kU/L (Class IV)
== END 2024-10-23 23:59 | disposition home or self-care (01) ==
LOC: LAB.DROPOF 10-24 13:01
PROVIDERS: PCP Nurse Practitioner Family; Visit Provider Nurse Practitioner Family
DX: D64.9 Anemia, unspecified (principal); D69.2 Other nonthrombocytopenic purpura; E66.09 Other obesity due to excess calories; F33.1 Major depressive disorder, recurrent, moderate; I10 Essential (primary) hypertension; K50.919 Crohn's disease, unspecified, with unspecified complications; R21 Rash and other nonspecific skin eruption; W57.XXXA Bitten or stung by nonvenomous insect and other nonvenomous arthropods, initial encounter; R31.9 Hematuria, unspecified; E11.9 Type 2 diabetes mellitus without complications; Z68.35 Body mass index [BMI] 35.0-35.9, adult; Z13.220 Encounter for screening for lipoid disorders
CPT/HCPCS: 80053; 80061; 81001; 82043; 82306; 82570; 82607; 82785; 83036; 84156; 85025; 86003; 86008; 86140; 87086; 87476

== ENCOUNTER 2024-11-11 13:36 | Outpatient (CLI) | payer BC, MEDICARE, SELFPAY ==
--- OUTSIDE RECORDS SUMMARY | 2024-09-30 09:00 | XMS_ITS | Encounter Summary ---
Author Organization [facility] Address [address] [place] [address] Care Team Providers Care Telegraph Repeater Technician Name Role Phone Linda Jerome Primary Care Provider [phone] Reason for Referral * Consultation (Routine) - Authorized Specialty Diagnoses / Procedures Referred By Contgary t Referred To Contact Diagnoses Crohn's disease of both small and large intestine without complication (CMS/HCC) Petra Walls PA [address] [address] Phone: tel: fax: Referral ID Status Reason Start Date Expiration Date V isits Requested Visits Authorized [id number] Authorized 09/30/2024 04/01/2026 1 1 Reason for Visit * Reason Comments Crohn's Disease Encounter Details Date Type Department Care Team (Late st Contact Info) Description 09/30/2024 9:00 AM EDT Office Visit [facility] [address] [place] [address] Petra Walls PA [address] [facility] [address] [place] [address] Crohn's disease of both small and large intestine without complication (CMS/HCC) (Primary Dx); Long-term current use of vedolizumab; History of bowel resection; Obesity (BMI 30-39.9) Social History Tobacco Use Types Packs/Day Years Used Date Smoking Tobacco: Never Passive Smoke Exposure: Never Smokeless Tobacco: Never Tobacco Cessation:Counseling Given: Not Answered Alcohol Use Standard Drinks/Week Comments No 0 (1 standard drink = 0.6 oz pure alcohol) Alcoholic Drinks/day: Never Drank Alcohol PHQ-2 Answer Date Recorded Patient Health Questionnaire-2 Score 0 09/30/2024 PHQ-9 Answer Date Recorded Patient Health Questionnaire-9 Score 0 09/30/2024 Sex and Gender Information Value Date Recorded Sex Assigned at Not on file Legal Sex Male 8:24 PM EDT Gender Identity Not on file Sexual Orientation Not on file documented as of this encounter Last Filed Vital Signs Vital Sign Reading Time Taken Comments Blood Pressure 135/85 09/30/2024 8:58 AM EDT Pulse 75 09/30/2024 8:58 AM EDT Temperature 36.4 C (97.5 F) 09/30/2024 8:58 AM EDT Respiratory Rate 16 09/30/2024 8:58 AM EDT Oxygen Saturation 95% 09/30/2024 8:58 AM EDT Inhaled Oxygen Concentration - - Weight 114 kg (251 lb 1.7 oz) 09/30/2024 8:58 AM EDT Height 182.9 cm (6') 09/30/2024 8:58 AM EDT Body Mass Index 34.06 09/30/2024 8:58 AM EDT documented in this encounter Functional Status * Over the past 2 weeks, how often have you been bothered by any of the following problems? Question Answer Date of Assessment Author Little interest or pleasure in doing things Not at all 09/30/2024 9:00 AM EDT Liliane Willis RN Feeling down, depressed, or hopeless Not at all 09/30/2024 9:00 AM EDT Liliane Willis RN Patient Health Questionnaire -2 Score 0 09/30/2024 9:00 AM EDT Liliane Willis RN * Question Answer Date of Assessment Author Trouble falling or staying asleep, or sleeping too much Not at all 09/30/2024 9:00 AM JEAN MARIET Jose Willis RN Feeling tired or having isabella le energy Not at all 09/30/2024 9:00 AM Liliane Bustillos RN Poor appetite or overeating Not at all 09/30/2024 9: 00 AM Liliane Bustillos RN Feeling bad about yourself - or that you are a failure or have let yourself or your family down Not at all 09/30/2024 9:00 AM Liliane Bustillos RN Trouble concentrating on things, such as reading the newspaper or watching television Not at all 09/30/2024 9:00 AM Liliane Bustillos RN Moving or speaking so slowly that other people could have noticed? Or the opposite - being so fidgety or restless that you have been moving around a lot more than usual. Not at all 09/30/2024 9:00 AM Liliane Bustillos RN Thoughts that you would be better off or hurting yourself in some way Not at all 09/30/2024 9:00 AM Liliane Bustillos RN Patient Health Questionnaire -9 Score 0 09/30/2024 9:00 AM Liliane Bustillos RN * If you checked off any problems on this questionnaire so far, Question Answer Date of Assessment Author How difficult have these problems made it for you to do your work, take care of things at home, or get along with other people? Not difficult at all 09/30/2024 9:00 AM Liliane Bustillos RN documented as of this encounter Miscellaneous Notes * Progress Notes - Petra Walls PA - 09/30/2024 9:00 AM EDT Subjective Patient ID: Abner Lambert is a 49 y.o. male. Chief Complaint Patient presents with Crohn's Disease HPI Mr. Lambert is a very pleasant 49 year old male seen in clinic today for follow-up of ileocolonic Crohn's disease diagnosed in 1996. Colonoscopy from 04/06/2023 reviewed and indicated mild diease activity in his TI. He was noted to have tenderness in his perineum at time of colonoscopy, sofurther evaluation with MRI was ordered. Pelvic MRI from 07/10/2023 showed thickening of the wall of rectosigmoid colon; no abscess of perianal fistula noted. Today Mr. Lambert reports feeling well overall. He denies any current abdominal or rectal pain. At time of last appointment he was experiencing increased N/V/D, which he has since determined was caused by Ozempic. His Ozempic dose has since been lowered resulting in improved GI symptoms. His bowel frequency has returned to baseline of 7-8 BM/day without evidence of melena or hematochezia. Stool ken quency does improve with cholestyramine, but he does not take the medication as it contributes to bloating and a sense of fullness. He does use Imodium PRN. He acknowledges occasional mild nausea without emesis. He is not experiencing decreased appetite, unintentional weight loss, or fevers. His energy level is low. He is a non-smoker. Previous medications include infliximab (persistent active disease), ustekinumab (no improvement insymptoms) azathioprine (fatigue) and mercaptopurine. Surgical history related to Crohn's is as follows: He is s/p ileocecal resection in 1996 and additional bowel resection in 2007. He developed stricture and is therefore s/p ileocolonic resection 05/13/14. He required drainage of peritoneal abscess 05/20/14. He most recently had ventral incisional hernia repair on 07/19/15. The following portions of the chart were reviewed this encounter and updated as appropriate: Tobacco Allergies Meds Problems Med Hx Surg Hx Fam Hx Review of Systems Constitutional: Positive for fatigue. Negative for appetite change, chills, fever and unexpected weight change. Gastrointestinal: Positive for nausea. Negative for abdominal pain, blood in stool, constipation, diarrhea and vomiting. All other systems reviewed and are negative. Objective Physical Exam Vitals reviewed. Constitutional: Appearance: Normal appearance. He is obese. HENT: Head: Normocephalic. Right Ear: External ear normal. Left Ear: External ear normal. Nose: Nose normal. Eyes: General: No scleral icterus. Conjunctiva/sclera: Conjunctivae normal. Cardiovascular: Rate and Rhythm: Normal rate and regular rhythm. Heart sounds: Normal heart sounds. Pulmonary: Effort: Pulmonary effort is normal. Breath sounds: Normal breath sounds. Abdominal: General: Abdomen is flat. Bowel sounds are normal. Palpations: Abdomen is soft. There is no mass. Tenderness: There is no abdominal tenderness. Musculoskeletal: General: Normal range of motion. Cervical back: Normal range of motion and neck supple. No tenderness. Lymphadenopathy: Cervical: No cervical adenopathy. Skin: General: Skin is warm and dry. Neurological: Mental Status: He is alert and oriented to person, place, and time. Psychiatric: Mood and Affect: Mood normal. Behavior: Behavior normal. Thought Content: Thought content normal. Judgment: Judgment normal. Assessment/Plan Diagnoses and all orders for this visit: 1.) Crohn's disease of both small and large intestine without complication (CMS/HCC): - Symptoms overall well-controlled on 300 mg vedolizumab every 8 weeks. - Routine monitoring labs are being completed and reviewed with infusions every 8 weeks to evaluatefor potential leukopenia, anemia, thrombocytopenia, transaminitis, hypoalbuminemia, inflammation, and disease activity. Most recent labs from 09/15/2024 reviewed and essentially unremarkable with the exception of mild, normocytic anemia. Previously elevated CRP has normalized. - Fecal calprotectin mildly elevated but in good range for Crohn's disease at 67 as of 04/2024. - Colonoscopy from 03/2023 showed mild active ileitis. Surveillance colonoscopy recommended in three years (due 03/2026). - Follow-up in 6 months or sooner if needed. - Follow Up GI; Future 2.) History of bowel resection: - Continue monthly vitamin B12 injections. 3.) Long-term current use of vedolizumab: - Annual TB screening is up-to-date (due 02/2025). - Recommend keeping all adult immunizations up-to-date. 4.) Obesity (BMI 30-39.9): - Recommend weight loss for overall health. documented in this encounter Plan of Treatment Upcoming Encounters Date Type Department Care Team (Late st Contact Info) Description 04/07/2025 9:00 AM EST Office Visit [facility] [address] [place] [address] Petra Walls PA [address] [place] [address] Scheduled Referrals Name Type Priority Associated Diagnoses Orde r Schedule Follow Up GI Outpatient Referral Routine Crohn's disease of both small and large intestine without complication (CMS/HCC) Expected: 04/02/2025, Expires: 10/31/2025 documented as of this encounter Visit Diagnoses Diagnosis Crohn's disease of both small and large intestine without complication (CMS/HCC)- Primary Long-term current use of vedolizumab History of bowel resection Obesity (BMI 30-39.9) documented in this encounter Additional Health Concerns Assessment Noted Time PHQ-9 Depression Total Score: 0 10/01/19 25 9:00 AM EDT A fall risk assessment has been complete d for the patient 09/30/2024 9:01 AM EDT A Body Mass Index follow-up plan has been documented for the patient 09/30/2024 10:01 AM EDT documented as of this encounter Care Teams Telegraph Repeater Technician Relationship Specialty Start Date End Date Linda Jerome PA [address] [place] [address] PCP - General 09/25/23 documented as of this encounter
--- OUTSIDE RECORDS SUMMARY | 2024-10-06 13:00 | XMS_ITS | Encounter Summary ---
Author Organization [facility] Address [address] [place] [address] Care Team Providers Care Dye Reel Operator Name Role Phone Linda Jerome Primary Care Provider [phone] Encounter Details Date Type Department Care Team (Late st Contact Info) Description 10/06/2024 1:00 PM EDT Office Visit [facility] [address] [place] [address] Pretty Amato, JOY [address] [facility] [address] [place] [address] Sandi Courtney Sleep apnea, obstructive (Primary Dx) Social History Tobacco Use Types Packs/Day Years Used Date Smoking Tobacco: Never Passive Smoke Exposure: Never Smokeless Tobacco: Never Alcohol Use Standard Drinks/Week Comments No 0 [...] Sign Reading Time Taken Comments Blood Pressure 113/74 10/06/2024 12:58 PM EDT Pulse 73 10/06/2024 12:58 PM EDT Temperature 36.8 C (98.2 F) 10/06/2024 12:58 PM EDT Respiratory Rate - - Oxygen Saturation 100% 10/06/2024 12:58 PM EDT Inhaled Oxygen Concentration - - Weight 112 kg (246 lb 14.6 oz) 10/06/2024 12:58 PM EDT Height 182.9 cm (6') 10/06/2024 12:58 PM EDT Body Mass Index 33.49 10/06/2024 12:58 PM EDT documented in this encounter Miscellaneous Notes * Progress Notes - Sandi Courtney - 10/06/2024 1:00 PM EDT Images from the original note were not included. Patient returned to the clinic the delivery of Orthapnea CAN appliance. Examination: Vitals: 10/06/24 1258 BP: 113/74 Pulse: 73 Temp: 36.8 ??C (98.2 ??F) SpO2: 100% Procedure: Orthoapnea CAN appliance was inserted. It was tried for 10 minutes, no pain or discomfort was reported. Patient reported generalized even pressure AM preparation room worker registration was taken to control the bite. It was tried and felt comfortable. Patient was instructed on how to use it. Orthoapnea appliance was delivered along with the AM preparation room worker and written instructions. Consents: Medicare delivery consent was obtained. Dental procedure oral appliance for RAUL consent was reviewed and obtained. All questions were answered. Assessment: severe obstructive sleep apnea managed with OAT (pending results of second sleep study with MAD in situ) Plan: Instructions of nighttime use and care were given to the patient. Patient to return to [facility] for follow up appointment on 10/27/2024 Cosigned by Pretty Amato DDS at 10/06/2024 3:58 PM EDT Associated attestation - Pretty Amato DDS - 10/06/2024 3:58 PM EDT I was present during paul portions of the procedure. documented in this encounter Plan of Treatment Upcoming Encounters Date Type Department Care Team (Late st Contact Info) Description 04/07/2025 9:00 AM EST Office Visit [facility] [address] [place] [address] Petra Walls PA [address] [place] [address] Scheduled Orders Name Type Priority Associated Diagnoses Orde r Schedule DENTAL LAB Dental Routine Sleep apnea, obstructive Ordered: 10/13/2024 documented as of this encounter Visit Diagnoses Diagnosis Sleep apnea, obstructive- Primary Obstructive sleep apnea (adult) (pediatric) documented in this encounter Additional Health Concerns Assessment Noted Time PHQ-9 Depression Total Score: 0 10/01/19 25 9:00 AM EDT A fall risk assessment has been complete d for the patient 09/30/2024 9:01 AM EDT A Body Mass Index follow-up plan has been documented for the patient 10/13/2024 1:22 PM EDT documented as of this encounter Care Teams Dye Reel Operator Relationship Specialty Start Date End Date Linda Jerome PA [address] [place] [address] PCP - General 09/25/23 documented as of this encounter
[2024-11-11 13:38] VITALS: BMI 34.7
--- OUTSIDE RECORDS SUMMARY | 2024-11-11 13:41 | XMS_ITS | Encounter Summary ---
Author Organization [facility] Address [address] [id number] Care Team Providers Care Field Sales Representative Name Role Phone Linda Jerome Primary Care Provider [phone] Encounter Details Date Type Department Care Team (Late st Contact Info) Description 10/03/2024 Telephone [facility] Room [address] [place] [address] Janell Swanson [facility] [place] [address] Social History Tobacco Use Types Packs/Day Years [...] on file documented as of this encounter Miscellaneous Notes * Telephone Encounter - Janell Swanson - 10/03/2024 1:38 PM EDT Phone call complete documented in this encounter Plan of Treatment Upcoming Encounters Date Type Department Care Team (Late st Contact Info) Description 04/07/2025 9:00 AM EST Office Visit [facility] Medicine Specialties [address] [place] [address] Petra Walls PA [address] [place] [address] documented as of this encounter Visit Diagnoses Not on filedocumented in this encounter Additional Health Concerns Assessment Noted Time PHQ-9 Depression Total Score: 0 10/01/19 25 9:00 AM EDT A fall risk assessment has been complete d for the patient 09/30/2024 9:01 AM EDT A Body Mass Index follow-up plan has been documented for the patient 09/30/2024 10:01 AM EDT documented as of this encounter Care Teams Field Sales Representative Relationship Specialty Start Date End Date Linda Jerome PA [address] [place] [address] PCP - General 09/25/23 documented as of this encounter
--- OUTSIDE RECORDS SUMMARY | 2024-11-11 13:41 | XMS_ITS | Encounter Summary ---
Author Organization [facility] Address [address] [place] [address] Care Team Providers Care Grader Operator Name Role Phone Linda Jerome Primary Care Provider [phone] Encounter Details Date Type Department Care Team (Late st Contact Info) Description 09/15/2024 Results Follow-Up [facility] Medicine Specialties [address] [place] [address] Petra Walls PA [address] [facility] [address] [place] [address] Social History Tobacco Use Types Packs/Day Years Used Date Smoking Tobacco: Never Smokeless Tobacco: Never Alcohol Use Standard Drinks/Week Comments No 0 (1 standard drink = 0.6 oz pure alcohol) Alcoholic Drinks/day: Never Drank Alcohol PHQ-2 Answer Date Recorded Patient Health Questionnaire-2 Score 0 04/01/2024 Sex and Gender Information Value Date Recorded Sex Assigned at Not on file Legal Sex Male 8:24 PM EDT Gender Identity Not on file Sexual Orientation Not on file documented as of this encounter Plan of Treatment Upcoming Encounters Date Type Department Care Team (Late st Contact Info) Description 04/07/2025 9:00 AM EST Office Visit [facility] Medicine Specialties [address] [place] [address] Petra Walls PA [address] [place] [address] documented as of this encounter Visit Diagnoses Not on filedocumented in this encounter Additional Health Concerns Assessment Noted Time A fall risk assessment has been complete d for the patient 04/01/2024 9:05 AM EST A Body Mass Index follow-up plan has been documented for the patient 09/01/2024 1:09 PM EDT documented as of this encounter Care Teams Grader Operator Relationship Specialty Start Date End Date Linda Jerome PA [address] [place] [address] PCP - General 09/25/23 documented as of this encounter
--- OUTSIDE RECORDS SUMMARY | 2024-11-11 13:41 | XMS_ITS | Encounter Summary ---
Author Organization [facility] Address [address] [id number] Care Team Providers Care Fire Hydrant Mechanic Name Role Phone Linda Jerome Primary Care Provider [phone] Encounter Details Date Type Department Care Team (Late st Contact Info) Description 10/10/2024 Telephone [facility] O[facility] Room [address] [place] [address] Janell Swanson [facility] [place] [address] Social History Tobacco Use Types Packs/Day Years [...] * Telephone Encounter - Janell Swanson - 10/10/2024 2:48 PM EDT Phone call complete documented in this encounter Plan of Treatment Upcoming Encounters Date Type Department Care Team (Late st Contact Info) Description 04/07/2025 9:00 AM EST Office Visit [facility] Medicine Specialties [address] [place] [address] Petra Walls PA [address] [place] [address] documented as of this encounter [...] documented as of this encounter Care Teams Fire Hydrant Mechanic Relationship Specialty Start Date End Date Linda Jerome PA [address] [place] [address] PCP - General 09/25/23 documented as of this encounter
--- OUTSIDE RECORDS SUMMARY | 2024-11-11 13:41 | XMS_ITS | Encounter Summary ---
Author Organization [facility] Address [address] [place] [address] Care Team Providers Care Student Nurse Name Role Phone Linda Jerome Primary Care Provider [phone] Encounter Details Date Type Department Care Team (Late st Contact Info) Description 10/13/2024 Orders Only [facility] Medicine Specialties [address] [place] [address] Lior De Anda, PharmD Social History Tobacco Use Types Packs/Day Years [...] Description 04/07/2025 9:00 AM EST Office Visit [facility] Medicine Specialties [address] [place] [address] Petra Walls PA [address] [place] [address] documented as of this encounter [...] documented as of this encounter Care Teams Student Nurse Relationship Specialty Start Date End Date Linda Jerome PA [address] [place] [address] PCP - General 09/25/23 documented as of this encounter
--- OUTSIDE RECORDS SUMMARY | 2024-11-11 13:41 | XMS_ITS | Encounter Summary ---
Author Organization [facility] Address [address] [place] [address] Care Team Providers Care Board Handler Name Role Phone Linda Jerome Primary Care Provider [phone] Reason for Visit * Reason Onset Date Comments HCN Clinical Concern/Question 05/22/2024 Encounter Details Date Type Department Care Team (Late st Contact Info) Description 05/22/2024 Telephone [place] [facility] Medicine Specialties [address] [place] [address] Petra Walls PA [address] [place] [address] HCN Clinical Concern/Question Social History Tobacco Use Types Packs/Day Years [...] on file documented as of this encounter Functional Status * Over the past 2 weeks, how often have you been bothered by any of the following problems? Question Answer Date of Assessment Author Little interest or pleasure in doing things Not at all 09/30/2024 9:00 AM EDT Liliane Willis RN Feeling down, depressed, or hopeless Not at all 09/30/2024 9:00 AM Liliane Bustillos RN Patient Health Questionnaire -2 Score 0 09/30/2024 9:00 AM Liliane Bustillos RN * Question Answer Date of Assessment Author Trouble falling or staying asleep, or sleeping too much Not at all 09/30/2024 9:00 AM Jose Bustillos RN Feeling tired or having isabella le [...] encounter Miscellaneous Notes * Telephone Encounter - Tri Lou RN - 10/22/2024 9:37 AM EDT Reviewed pt's chart: - Pt seen for follow up appointment, as scheduled, with LUKE Walters on 09/30/2024 - See [facility] note for further information. * Telephone Encounter - Tri Lou RN - 09/18/2024 6:04 PM EDT Reviewed pt's chart: - Lab work ordered in June, has not been completed - CBC with diff, CMP, CRP with pt's infusion uploaded under Media - 09/15/2024. - Pt is scheduled to see LUKE Walters on 09/30/2024 * Telephone Encounter - Tri Lou RN - 07/30/2024 6:37 PM EST Faxed MR request to [facility] - MR: - P: [phone] - F: [phone] - Via [employer] on 07/30/2024 at 637pm * Telephone Encounter - Tri Lou RN - 07/15/2024 3:48 PM EST Lab work results received from 07/10/2024 infusion: - CRP increased at 9.9 on 07/10/2024 - CBC with diff, CMP, CRP scanned into Media Result Note: One of your liver enzymes is slightly increased and hemoglobin is slightly decreased. I have asked staff to send more lab orders to do in a couple weeks to repeat liver enzymes (can often irmprove) and iron/vitamin b12 folic acid tests as well. I am covering for petra while she is out this week. Written by EDELMIRA Garcia on 07/10/2024 5:27 PM EST Spoke with pt to follow up: - Pt states he was seen at local [facility] on 07/10/2024 for a sinus infection that pt states he has had for 1 month - Pt states he had redness in one of his legs and [facility] recommended he be seen in the ER if the area worsens - Pt seen in the [facility] ER on 07/10/2024 - Pt states he was diagnosed with an infected vein and lymph node - Pt was given antibiotics and should complete in two days - Pt states area has resolved - Pt to follow up with PCP, but his PCP has left so he is working to set up a new PCP - Offered to schedule pt at [facility] for PCP, but pt has a provider he will try to set up to see locally. - Arranged with pt to call him back next week to remind pt to complete two week follow up lab work at [facility]. Faxed request to [facility] - Medical Records for ER visit records: - P: [phone] - F: [phone] - Via [employer] on 07/15/2024 at 403pm. Faxed lab work orders to [facility] - Registration for pt to complete lab work nextweek. - P: [phone] - F: [phone] - Via [employer] on 07/15/2024 at 422pm. * Telephone Encounter - Sandi Freeman - 06/27/2024 11:49 AM EST Will f/u JUN infusion labs , so far crp not received. * Telephone Encounter - Sandi Freeman - 06/25/2024 9:34 AM EST Faxed for crp result * Addendum Note - Tri Lou RN - 06/05/2024 3:25 PM ESTAddended by: TRI LOU on: 06/05/2024 03:25 PM Modules accepted: Orders * Telephone Encounter - Tri Lou RN - 06/05/2024 3:20 PM EST Called pt to follow up: - Notified pt that the laboratory did not have enough blood to run the CRP - They do not need a new order, but asked if GI Clinic would call pt to notify and ask pt to come back to have CRP redrawn - Reviewed with pt information regarding CRP order. - Asked pt to notify GI Clinic once he has it drawn and GI Clinic will follow up for the results - Reviewed recommendations from LUKE Walters regarding diarrhea - Pt will plan to restart back on cholestyramine packets, to see how his symptoms do - Pt will follow up with ordering provider of Ozempic to let them know information - Pt will call [facility] Clinic back with any questions or continued issues. Prescription for cholestyramine packets to [facility]. * Telephone Encounter - Tri Lou RN - 06/04/2024 6:56 PM EST Called pt to follow up: - Reviewed lab work results with pt - Pt states his baseline for stools during the day is 12/day without urgency and no nocturnal stooling - Pt states for the last 3-4 weeks he is having increase in stools and urgency. - Pt states have up to 12 stools at a time after eating and having to have bowel movements back to back until he is empty - Pt states now having 3 nocturnal stools - Pt states he had a recent sinus infection over a month ago and was given a small antibiotic tiff steroid course. He had improvement for a week and then the increase in stools and urgency returned - Pt states he has been eating yogurt following the antibiotic and using Imodium up to five doses aday to try to help with his symptoms. The Imodium helps decrease the symptoms, but they increase back up once it wears off - Pt states he started on Ozempic approximately 10 months - He stated he noted increase in stools per day after Ozempic but did not have urgency. - Pt was increase from 0.25mg to 0.5mg approximately 1-2 months and then he noted urgency with increase in stools - Pt states he decrease the dosage back down to 0.25mg 2 weeks ago, without improvement of urgency or increase in loose stools - Reviewed with pt that Ozempic can have a side effect of diarrhea - Discussed that pt could also have a change in the jaky in his intestines following antiobiotic therapy - Pt denies any nausea, vomiting, abdominal pain or blood in stool - Pt states feeling well otherwise. - Pt confirmed he is having concerns for reaching the bathroom with urgency and having stooling accidents. Notified pt that information will be forwarded to LUKE Walters to review, for her recommendations. Pt states understanding. * Telephone Encounter - Stephanie Mishra - 06/04/2024 9:41 AM EST Patient called to follow up on recent results I advised of result note from Petra on blood work and stool study Patient would like to get a call back from Petra has he has some additional questions CB: [phone] * Telephone Encounter - Sandi Freeman - 06/03/2024 4:15 PM EST med rec does not see the crp, spoke to lab staff and confirmed crp not done, pt should have infusion coming up in next few weeks, can f/u that lab result then, unless provider needs sooner * Telephone Encounter - Sandi Freeman - 06/02/2024 9:57 PM EST Faxed for crp and o&p results * Addendum Note - Brijesh Curtis RN - 05/30/2024 7:26 AM ESTAddended by: BRIJESH CURTIS on: 05/30/2024 07:26 AM Modules accepted: Orders * Telephone Encounter - Stephanie Mishra - 05/29/2024 12:00 PM EST Patient called He was wondering about lab results from 05/27 - in media tab CB: [phone] * Telephone Encounter - Sandi Freeman - 05/29/2024 9:58 AM EST Fu crp , and other stool studies * Addendum Note - Sandi Freeman - 05/29/2024 9:47 AM ESTAddended by: SANDI FREEMAN on: 05/29/2024 09:47 AM Modules accepted: Orders * Telephone Encounter - Sandi Freeman - 05/26/2024 10:52 AM EST Faxed for lab results * Telephone Encounter - Prerna Arango - 05/23/2024 1:11 PM EST Orders faxed for blood work and stool studies to [facility] - Registration: - P: [phone] - F: [phone] - Via [employer] on 05/23/2024 at 1015am Per Hospital please re-fax order to : [phone] * Telephone Encounter - Sandi Freeman - 05/23/2024 10:31 AM EST Spoke to pt, he is aware of labs being faxed to [facility] to get done leanna. Pt also aware of coming to ED if needed and symptoms worsen * Addendum Note - Tri Lou RN - 05/23/2024 10:15 AM ESTAddended by: TRI LOU on: 05/23/2024 10:15 AM Modules accepted: Orders * Telephone Encounter - Tri Lou RN - 05/23/2024 10:14 AM EST Orders faxed for blood work and stool studies to [facility] - Registration: - P: [phone] - F: [phone] - Via [employer] on 05/23/2024 at 1015am * Telephone Encounter - Hermila Juarez - 05/22/2024 4:36 PM EST Reason for call: Chron's Flair up Symptoms: How long have had symptoms: Last month Abdominal pain: NO, some discomfort Nausea and/or vomiting: NO Fever/Chills: NO # of BM's per day: 20+ Consistency: Watery with mucus Urgency: Yes Wake @ night for BM: Yes If labs requested where would pt like to complete: [facility] in [place] Next appointment date: 09/30/24 Patient states that he is taking imodium to help with diarrhea with no relief CB #: [phone] * Telephone Encounter - Sandi Freeman - 05/22/2024 4:29 PM EST Left pt a , instructed him to call clinic back tomorrow with more details of his symptoms. Pt does not appear to be active on [facility] * Telephone Encounter - Lorri Stanton - 05/22/2024 9:37 AM EST Clinical Concern/Question Reason for Call: Patient experiencing a flare up, requesting call back to advise. Best contact number: [phone] (home) Optimal time of day to reach caller: ANYTIME Additional comments/information from caller: None Note: Please do not reply to this message. Follow-up communication and further actions as a result of this message need to be communicated with the patient directly, if the patient is not active onMyChart. If the patient is active on MyChart, they will receive notification of the communication/outcome via MyChart. documented in this encounter Plan of Treatment Upcoming Encounters Date Type Department Care Team (Late st Contact Info) Description 04/07/2025 9:00 AM EST Office Visit [facility] Medicine Specialties [address] [place] [address] Petra Walls PA [address] [place] [address] Scheduled Orders Name Type Priority Associated Diagnoses Orde r Schedule Ova and Parasite Exam, Fecal Microbiology Routine Crohn's disease of both small and large intestine without complication (CMS/HCC) Expected: 05/23/2024 (Approximate), Expires: 11/21/2025 C-Reactive Protein, Plasma Lab Routine Crohn's disease of both small and large intestine without complication (CMS/HCC) Expected: 05/23/2024 (Approximate), Expires: 11/21/2025 documented as of this encounter Results * Comprehensive GI Panel by PCR (05/29/2024 9:48 AM EST) Stool Rectum structure / Unknown us Petra HICKEY LAB MICROBIOLOGY - GENERAL ORDERABLES Final Result EXTERNAL LAB * Clostridiodes (Clostridium) difficile PCR (05/29/2024 9:48 AM EST) Stool Rectum structure / Unknown Petra B Stuffelbeam PA LAB MICROBIOLOGY - GENERAL ORDERABLES Final Result Performing Organization Address [facility] de Phone Number EXTERNAL LAB * CBC and Differential (05/29/2024 9:48 AM EST) Blood Venous blood specimen / Unknown Petra B Stuffelbeam PA LAB BLOOD ORDERABLES Final Result Performing Organization Address [facility] de Phone Number EXTERNAL LAB * Comprehensive Metabolic Panel, Plasma (05/29/2024 9:48 AM EST) Blood Venous blood specimen / Unknown Petra B Stuffelbeam PA LAB BLOOD ORDERABLES Final Result Performing Organization Address [facility] de Phone Number EXTERNAL LAB * Calprotectin, Fecal by Immunoassay (05/27/2024) Stool Stool specimen / Unknown Petra B Stuffelbeam PA LAB BODY FLUIDS AND STOOLS ORDERABLES Final Result Performing Organization Address [facility] de Phone Number EXTERNAL LAB documented in this encounter Visit Diagnoses Diagnosis Crohn's disease of both small and large intestine without complication ([facility])- Primary documented in this encounter Additional Health Concerns Infection Onset Date Last Indicated Resolved Time Gastrointestinal Rule-Out 05/29/2024 05/29/2024 9:49 AM EST C. difficile Rule-Out 05/29/2024 05/29/20242024 9:49 AM EST Assessment Noted Time A fall risk assessment has been complete d for the patient 04/01/2024 9:05 AM EST A Body Mass Index follow-up plan has been documented for the patient 04/01/2024 9:34 AM EST documented as of this encounter Care Teams Board Handler Relationship Specialty Start Date End Date Linda Jerome PA [address] [place] [address] PCP - General 09/25/23 documented as of this encounter
--- OUTSIDE RECORDS SUMMARY | 2024-11-11 13:41 | XMS_ITS | Encounter Summary ---
Author Organization [facility] Address [address] [place] [address] Care Team Providers Care Auction Block Clerk Name Role Phone Linda Jerome Primary Care Provider [phone] Encounter Details Date Type Department Care Team (Latest Contact Info) Description 09/30/2024 Travel Social History Tobacco Use Types Packs/Day Years [...] things Not at all 09/30/2024 9:00 AM Liliane Bustillos RN Feeling down, depressed, or hopeless Not [...] Bustillos RN documented as of this encounter Plan of Treatment Upcoming Encounters Date Type Department Care Team (Late st Contact Info) Description 04/07/2025 9:00 AM EST Office Visit [facility] Medicine Specialties [address] [place] [address] Petra Walls PA [address] [place] [address] documented as of this encounter [...] documented as of this encounter Care Teams Auction Block Clerk Relationship Specialty Start Date End Date Linda Jerome PA [address] [place] [address] PCP - General 09/25/23 documented as of this encounter
--- OUTSIDE RECORDS SUMMARY | 2024-11-11 13:41 | XMS_ITS | Encounter Summary ---
Author Organization [facility] Address [address] [place] [address] Care Team Providers Care Athletic Turf Worker Name Role Phone Linda Jerome Primary Care Provider [phone] Encounter Details Date Type Department Care Team (Late st Contact Info) Description 09/15/2024 Orders Only [facility] Medicine Specialties [address] [place] [address] Petra Walls PA [address] [facility] [address] [place] [address] Social History Tobacco Use Types [...] Description 04/07/2025 9:00 AM EST Office Visit [facility] Medicine Specialties [address] [place] [address] Petra Walls PA [address] [facility] [address] [place] [address] documented as of this encounter Procedures Procedure Name Priority Date/Time Associated Diagnosis Comments COMPLETE METABOLIC PROFILE (CMP) Routine 09/15/2024 12:37 PM EDT CBC W/O DIFFERENTIAL Routine 09/15/2024 12:37 PM EDT C-REACTIVE PROTEIN, PLASMA Routine 09/15/2024 12:37 PM EDT documented in this encounter Results * COMPLETE METABOLIC PROFILE (CMP) (09/15/2024 12:37 PM EDT) us Petra B Stuffelbeam PA LAB BLOOD ORDERABLES Final Result * C-Reactive Protein, Plasma (09/15/2024 12:37 PM EDT) Blood Venous blood specimen / Unknown us Petra B Stuffelbeam PA LAB BLOOD ORDERABLES Final Result * CBC W/O Differential (09/15/2024 12:37 PM EDT) Blood Venous blood specimen / Unknown us Petra B Stuffelbeam PA LAB BLOOD ORDERABLES Final Result documented in this encounter Visit Diagnoses Not on filedocumented in this encounter Additional Health Concerns Assessment Noted Time A fall risk assessment has been complete d for the patient 04/01/2024 9:05 AM EST A Body Mass Index follow-up plan has been documented for the patient 09/01/2024 1:09 PM EDT documented as of this encounter Care Teams Athletic Turf Worker Relationship Specialty Start Date End Date Linda Jerome PA [address] [place] [address] PCP - General 09/25/23 documented as of this encounter
--- OUTSIDE RECORDS SUMMARY | 2024-11-11 13:41 | XMS_ITS | Encounter Summary ---
Author Organization [facility] Address [address] [place] [address] Care Team Providers Care Manager Shell Name Role Phone Linda Jerome Primary Care Provider [phone] Encounter Details Date Type Department Care Team (Latest Contact Info) Description 10/06/2024 Travel Social History Tobacco Use Types Packs/Day [...] Description 04/07/2025 9:00 AM EST Office Visit [facility] Medicine Specialties [address] [place] [address] Petra Walls PA [address] [place] [address] documented as of this encounter Visit Diagnoses Not on filedocumented in this encounter Additional Health Concerns Assessment Noted Time PHQ-9 Depression Total Score: 0 10/01/19 9:00 AM EDT A fall risk assessment has been complete d for the patient 09/30/2024 9:01 AM EDT A Body Mass Index follow-up plan has been documented for the patient 10/13/2024 1:22 PM EDT documented as of this encounter Care Teams Manager Shell Relationship Specialty Start Date End Date Linda Jerome PA [address] [place] [address] PCP - General 09/25/23 documented as of this encounter
--- OUTSIDE RECORDS SUMMARY | 2024-11-11 13:41 | XMS_ITS ---
Laboratory report Created on: October 29, 2024 TUYET UMAÑA : 1975 Sex: Male Author Organization Unknown PROBLEMS Problems List Code Description RESULTS Laboratory Orders Date Order Code Test 2024-10-23 324988 ALPHA-GAL IGE PA SHERI 2024-10-23 [id number] LYME (B. BURGDOR FERI) PCR 2024-10-23 [id number] FOOD ALLERGY PRO FILE Laboratory Results Date LOINC Test Value Unit Reference Range Interpre tation 2024-10-23 68213-5 IMMUNOGLOBULIN E, TOTAL 305 IU/ML 6-495 2024-10-23 6219-0 U810-YRU PORK .84 KU/L A 2024-10-23 6039-2 G007-JYI BEEF 2.33 KU/L A 2024-10-23 6155-6 Y430-ISR PERRY .82 KU/L A 2024-10-23 26227-5 Q998-XGI ALPHA-GAL 7.47 KU/L A 2024-10-23 4991-6 LYME (B BURGDORF ROSA) PCR N NEGATIVE 2024-10-23 6106-9 I723-BMW EGG WHITE <0.10 KU/L 2024-10-23 6206-7 W844-EES PEANUT <0.10 KU/L 2024-10-23 6248-9 P998-HJC SOYBEAN <0.10 KU/L 2024-10-23 7258-7 Y071-TOX MILK .2 KU/L A 2024-10-23 6076-4 S530-GXV CLAM <0.10 KU/L 2024-10-23 6246-3 W575-CRI SHRIMP <0.10 KU/L 2024-10-23 6273-7 V137-FQM WALNUT <0.10 KU/L 2024-10-23 6082-2 W539-NDM CODFISH <0.10 KU/L 2024-10-23 7691-9 U372-LJJ SCALLOP <0.10 KU/L 2024-10-23 6276-0 M746-JEH WHEAT <0.10 KU/L 2024-10-23 6087-1 I929-OZX CORN <0.10 KU/L 2024-10-23 6242-2 A000-AEX SESAME SEED <0.10 KU/L
--- OUTSIDE RECORDS SUMMARY | 2024-11-11 13:41 | XMS_ITS | Encounter Summary ---
Author Organization [facility] Address [address] [place] [address] Care Team Providers Care Lead Sharepoint Developer Name Role Phone Quentin Hernandez MD Primary Care Provider + [phone] Linda Jerome Primary Care Provider [phone] Encounter Details Date Type Department Care Team (Latest Contact Info) Description 04/06/2023 Lab Requisition [facility] [address] [place] [address] Christin Macdonald MD [address] [place] [address] Crohn's disease, unspecified, without complications (CMS/HCC) Social History Tobacco Use Types Packs/Day Years Used Date Smoking Tobacco: Never Smokeless Tobacco: Never Alcohol Use Standard Drinks/Week Comments No 0 (1 standard drink = 0.6 oz pure alcohol) Alcoholic Drinks/day: Never Drank Alcohol PHQ-2 Answer Date Recorded Patient Health Questionnaire-2 Score 0 01/03/2022 Sex and Gender Information Value Date Recorded Sex Assigned at Not on file Legal Sex Male 8:24 PM EDT Gender Identity Not on file Sexual Orientation Not on file documented as of this encounter Plan of Treatment Upcoming Encounters Date Type Department Care Team (Late st Contact Info) Description 04/07/2025 9:00 AM EST Office Visit [place] Clinic Medicine Specialties [address] [place] [address] Petra Walls PA [address] [place] [address] documented as of this encounter Procedures Procedure Name Priority Date/Time Associated Diagnosis Comments SURGICAL PATHOLOGY EXAM Routine 04/06/2023 Crohn's disease, unspecified, without complications (CMS/HCC) documented in this encounter Results * Surgical Pathology Exam (04/06/2023) Case Report Surgical Pathology Case: [id number] Authorizing Provider: Christin Macdonald MD Collected: 04/06/2023 Ordering Location: [facility] Lab Received: 04/06/2023 1448 Pathologist: Toribio Roy DO Specimens: A) - Ileum, neoterminal ileum biopsy B) - Colon, anastomosis biopsy C) - Colon, random colon biopsy 04/09/2023 5:00 PM EST [facility] Final Diagnosis A. SMALL INTESTINE, NEOTERMINAL ILEUM, BIOPSY: - FOCAL ACUTE ILEITIS (HISTORY OF CROHN'S DISEASE STATUS POST RESECTION). - NEGATIVE FOR HISTOLOGIC FEATURES OF CHRONICITY. B. ANASTOMOSIS, BIOPSY: - CRYPT ARCHITECTURE DISTORTION AND CRYPTITIS (HISTORY OF CROHN'S DISEASE STATUS POST RESECTION; SEE COMMENT). C. LARGE INTESTINE, RANDOM COLON, BIOPSY: - NO PATHOLOGIC ABNORMALITY (HISTORY OF CROHN'S DISEASE STATUS POST RESECTION). - NEGATIVE FOR ACTIVE DISEASE OR DYSPLASIA. 04/09/2023 5:00 PM EST [facility] at 1700 EST Comment The finding of crypt distortion and active inflammation in the form of cryptitis within the anastomosis biopsy could be secondary to anastomotic site changes rather than active inflammatory bowel disease; however, clinical correlation is required. 04/09/2023 5:00 PM EST [facility] Clinical Information Crohn's disease, unspecified, without complications High-risk colon cancer surveillance Colonoscopy findings: - There was evidence of a prior gmak-dy-wair ileo-colonic anastomosis in the proximal transverse colon. This was patent and was characterized by healthy appearing mucosa. The anastomosis was traversed. - The lalita-terminal ileum appeared normal. - The colon (entire examined portion) appeared normal. 04/09/2023 5:00 PM EST [facility] Gross Description A. NEOTERMINAL ILEUM BIOPSY The specimen is received in formalin labeled neoterminal ileum biopsy . Consist of two fragments of pink-farrell mucosa, measuring 0.2 x 0.2 x 0.1 cm and 0.3 x 0.2 x 0.1 cm. The specimen is submitted entirely in cassette A1. B. ANASTOMOSIS BIOPSY The specimen is received in formalin labeled anastomosis biopsy . Consist of a 0.3 x 0.3 x 0.2 cm fragment of pink-farrell mucosa. The specimen is submitted entirely in cassette B1. C. RANDOM COLON BIOPSY The specimen is received in formalin labeled random colon biopsy . Consists of multiple fragments of farrell-brown mucosa, ranging from 0.1-0.4 cm, 1.0 x 0.5 x 0.1 cm in aggregate. The specimen is submitted entirely in cassette C1. 04/09/2023 5:00 PM EST [facility] Note: A resident was involved in the service. I attest I examined the relevant preparations for the specimens and confirmed the diagnosis or interpretation. 04/09/2023 5:00 PM EST [facility] Tissue Colon structure / Unknown 04/06/2023 04/06/2023 2:43 PM EST Tissue specimen (specimen) Colon structure / Unknown 04/06/2023 04/06/2023 2:43 PM EST Tissue specimen (specimen) Colon structure / Unknown 04/06/2023 04/06/2023 2:43 PM EST Christin Macdonald MD LAB PATHOLOGY ORDERABLES Final Result Performing Organization Address City/State/[facility] Co de Phone Number [facility] [address] [place] [phone] documented in this encounter Visit Diagnoses Diagnosis Crohn's disease, unspecified, without complications (CMS/HCC) documented in this encounter Additional Health Concerns Infection Onset Date Last Indicated Resolved Time Gastrointestinal Rule-Out 05/29/2024 05/29/2024 9:49 AM EST C. difficile Rule-Out 05/29/2024 05/29/20242024 9:49 AM EST Assessment Noted Time A fall risk assessment has been complete d for the patient 01/03/2022 1:36 PM EDT documented as of this encounter Care Teams Lead Sharepoint Developer Relationship Specialty Start Date End Date Quentin Hernandez MD [address] [place] [address] PCP - General 10/08/20 09/24/23 Linda Jerome PA [address] [place] [address] PCP - General 09/25/23 documented as of this encounter
--- OUTSIDE RECORDS SUMMARY | 2024-11-11 13:41 | XMS_ITS | Encounter Summary ---
Author Organization [facility] Address [address] [id number] Care Team Providers Care Physician Surgeon Name Role Phone Linda Jerome Primary Care Provider [phone] Encounter Details Date Type Department Care Team (Late st Contact Info) Description 10/17/2024 Telephone [facility] Room E214 [address] [place] [address] Janell Swanson [facility] [place] [address] Social History Tobacco Use Types Packs/Day Years [...] * Telephone Encounter - Janell Swanson - 10/17/2024 10:10 AM EDT Phone call complete documented in this encounter Plan of Treatment Upcoming Encounters Date Type Department Care Team (Late st Contact Info) Description 04/07/2025 9:00 AM EST Office Visit [facility] Medicine Specialties [address] [place] [address] Petra Walls PA [address] [place] [address] documented as of this encounter [...] documented as of this encounter Care Teams Physician Surgeon Relationship Specialty Start Date End Date Linda Jerome PA [address] [place] [address] PCP - General 09/25/23 documented as of this encounter
--- OUTSIDE RECORDS SUMMARY | 2024-11-11 13:41 | XMS_ITS | Encounter Summary ---
Author Organization [facility] Address [address] [place] [address] Care Team Providers Care Mathematics Education Professor Name Role Phone Quentin Hernandez MD Primary Care Provider + [phone] Linda Jerome Primary Care Provider [phone] Encounter Details Date Type Department Care Team (Late st Contact Info) Description 04/06/2023 Outside Procedure [address] [address] Provider, External Social History Tobacco Use Types Packs/Day Years [...] Description 04/07/2025 9:00 AM EST Office Visit [facility] [address] [place] [address] Petra Walls PA [address] [place] [address] documented as of this encounter Procedures Procedure Name Priority Date/Time Associated Diagnosis Comments COLONOSCOPY 04/06/2023 9:59 AM EST documented in this encounter Results * Colonoscopy (04/06/2023 9:59 AM EST) Anatomical Region Laterality Modality Endoscopy 04/06/2023 9:29 AM EST Impressions 04/06/2023 9:59 AM EST Please see media tab for the result. Information added by interface. Narrative Procedure Note Christin Macdonald MD - 04/06/2023 IMPRESSION: Please see media tab for the result. Information added by interface. us External Provider GI PROCEDURE ORDERABLES Final Result documented in this encounter Visit Diagnoses Not on filedocumented in this encounter Additional Health Concerns Infection Onset Date Last Indicated Resolved Time Gastrointestinal Rule-Out 05/29/2024 05/29/2024 9:49 AM EST C. difficile Rule-Out 05/29/2024 05/29/20242024 9:49 AM EST Assessment Noted Time A fall risk assessment has been complete d for the patient 01/03/2022 1:36 PM EDT documented as of this encounter Care Teams Mathematics Education Professor Relationship Specialty Start Date End Date Quentin Hernandez MD [address] [place] [address] PCP - General 10/08/20 09/24/23 Linda Jerome PA [address] [place] [address] PCP - General 09/25/23 documented as of this encounter
--- OUTSIDE RECORDS SUMMARY | 2024-11-11 13:41 | XMS_ITS | Clinical Summary ---
Author Organization [facility] Address [address] [place] [address] Care Team Providers Care Dragline Mechanic Name Role Phone Linda Jerome Primary Care Provider [phone] Allergies Active Allergy Reactions Criticality Noted Date Comments Ciprofloxacin Hives,Other - please document in the comment field,Vomiting Medium 06/22/2007 diarrhea Metformin Nausea High 05/18/2023 Metronidazole Unknown - Patient st ates they do not know rxn details,Hives Medium 06/20/2021 Medications Xarelto 20 MG tablet TAKE ONE TABLET BY MOUTH DAILY FOR BLOOD CLOTS WITH EVENING MEAL 2 Active Ozempic, 0.25 or 0.5 MG/DOSE, 2 MG/3ML solution pen-injector 4 Active lisinopril 10 MG tablet Take 1 tablet (10 mg) by mouth 1 (one) time each day. Active Accu-Chek Softclix Lancets lancets USE DIRECTED 4 Active Accu-Chek Guide test strip USE DIRECTED 4 Active Blood Glucose Monitoring Suppl (Accu-Chek Guide Me) w/Device kit USE DIRECTED 4 Active Syringe/Needle , Disp, 26G X 5/8 1 ML miscIndication s:History of bowel resection Use for monthly administration of vitamin B12. 3 each 3 4 Active cyanocobalamin (Vitamin B-12) 1000 MCG/ML injectionIndic ations:History of bowel resection Inject 1 mL (1,000 mcg) under the skin every 30 (thirty) days. Inject as directed 3 mL 3 4 025 Active Syringe/Needle , Disp, (Luer Lock Safety Syringes) 25G X 1 3 ML miscIndication s:History of bowel resection Use as directed with monthly Vitamin B12 injections. 3 each 3 4 Active cholestyramine (Questran) 4 GM/DOSE powder Take 0.5 packets (2 g) by mouth 1 (one) time each day. Dissolve in 8 oz of liquid and drink before a meal. May increase to 1 packet (4gm) by mouth 1 time a day based on diarrhea symptoms. 30 packet 1 5 Active Entyvio 300 MG injection RECONSTITUTE WITH 4.8 ML STERILE WATER. ADD 5 ML TO 250 ML NS AND INFUSE 300 MG INTRAVENOUSLY OVER 30 MINUTES EVERY 56 DAYS. REFRIGERATE. 5 mL 4 5 Active Active Problems Problem Noted Date Diagnosed Date Crohn's disease with complication 07/06/2021 Encounters Date Type Department Care Team Description 10/17/2024 Telephone [facility] Room E214 [address] [place] [address] Janell Swanson 10/13/2024 Orders Only [facility] Medicine Specialties [address] [place] [address] Lior De Anda, PharmD 10/10/2024 Telephone [facility] Room E214 [address] [place] [address] Janell Swanson 10/06/2024 1:00 PM EDT Office Visit [facility] Room E214 [address] [place] [address] Pretty Amato, Sandi Hawley Sleep apnea, obstructive (Primary Dx) 10/06/2024 Travel 10/03/2024 Telephone [facility] Room E214 [address] [place] [address] Janell Swanson 09/30/2024 9:00 AM EDT Office Visit [facility] Medicine Specialties [address] [place] [address] Petra Walls PA Crohn's disease of both small and large intestine without complication (CMS/HCC) (Primary Dx); Long-term current use of vedolizumab; History of bowel resection; Obesity (BMI 30-39.9) 09/30/2024 Travel 09/15/2024 Results Follow-Up [facility] Medicine Specialties [address] [place] [address] Petra Walls PA 09/15/2024 Orders Only [facility] Medicine Specialties [address] [place] [address] Petra Walls PA 08/25/2024 1:00 PM EDT Office Visit [facility] Room E214 [address] [place] [address] Pretty Amato, DDS Sandi Courtney Sleep apnea, obstructive (Primary Dx) 08/25/2024 Travel 08/11/2024 Refill [facility] Medicine Specialties [address] [place] [address] Petra Walls PA from Last 3 Months Immunizations Immunization Administration Dates Next Due Hep A, Adult 02/19/2019,06/21/2018 Influenza, Unspecified 04/18/2010,06/22/2008 Influenza, injectable, quadr ivalent, preservative free 07/05/2021,03/31/2020,02/19/2019,02/18,04/25/2017,04/10/2016 Influenza, seasonal, injectable 02/09/20 15,01/26/2015,02/26/2012,10/18 Influenza, seasonal, injecta ble, preservative free 02/18/2018 Novel [id number], all formulations 06/07/2009 PPD Skin Test (TB Skin Test) 04/17/2011 Pneumococcal Polysaccharide PPV23 02/26/2012 Family History Medical History Relation Name Comments Diabetes Father Diabetes Mother Relation Name Status Comments Father Mother Social History Tobacco Use Types Packs/Day Years [...] on file Sexual Orientation Not on file Last Filed Vital Signs Vital Sign Reading Time Taken Comments Blood Pressure 113/74 10/06/2024 12:58 PM EDT Pulse 73 10/06/2024 12:58 PM EDT Temperature 36.8 C (98.2 F) 10/06/2024 12:58 PM EDT Respiratory Rate 16 09/30/2024 8:58 AM EDT Oxygen Saturation 100% 10/06/2024 12:58 PM EDT Inhaled Oxygen Concentration - - Weight 112 kg (246 lb 14.6 oz) 10/06/2024 12:58 PM EDT Height 182.9 cm (6') 10/06/2024 12:58 PM EDT Body Mass Index 33.49 10/06/2024 12:58 PM EDT Plan of Treatment Upcoming Encounters Date Type Department Care Team (Late st Contact Info) Description 04/07/2025 9:00 AM EST Office Visit [facility] [address] [place] [address] Petra Walls PA [address] [place] [address] Health Maintenance Due Date Last Done Comments Dental Oral Exam 1973 Dental Prophylaxis 1973 Dental X-Ray: Bitewings 1973 Dental X-Ray: Full Mouth 1973 [facility]-HIV Screening 1973 [facility]-Hepatitis C Screening 1973 [facility]-Medicare Annual Wellness (AWV) 1973 [facility]-/Child/Adol SDOH Screenings 1973 [facility]- SDOH Screenings 1991 [facility]-Adult SDOH Screenings 1991 [facility]-DTaP,Tdap,and Td Vaccines (1 - Tdap) 1992 [facility]-Hepatitis B Vaccines (1 of 3 - 19+ 3-dose series) 1992 [id number] Vaccine (3 - Moderna risk series) 08/13/2020 07/16/2020, 06/16/2020 [facility]-Pneumococcal Vaccine: 50+ Years (2 of 2 - PCV) 2023 02/26/2012 [facility]-Zoster Vaccines (1 of 2) 2023 [facility]-Influenza Vaccine (Season Ended) 2025 07/05/2021, 03/31/2020, 02/19/2019, Additional history exists [facility]-Depression Screening 09/30/2025 09/30/2024, 0510/2024 [facility]-Hepatitis A Vaccines Aged Out 02/19/2019, 05/29 No longer eligible based on patient's age to complete this topic [facility]-Obesity Intervention Completed 025, 09/30/2024, 08/25/2024, Additional history exists HPV Vaccines Aged Out No longer eligi ble based on patient's age to complete this topic [facility]-HIB Vaccines Aged Out No longer e ligible based on patient's age to complete this topic [facility]-IPV Vaccines Aged Out No longer e ligible based on patient's age to complete this topic [facility]-Rotavirus Vaccines Aged Out No lo nger eligible based on patient's age to complete this topic Procedures Procedure Name Priority Date/Time Associated Diagnosis Comments DENTAL LAB Routine 10/17/2024 2:38 PM EDT Sleep apnea, obstructive COMPLETE METABOLIC PROFILE (CMP) Routine 09/15/2024 12:37 PM EDT C-REACTIVE PROTEIN, PLASMA Routine 09/15/2024 12:37 PM EDT CBC W/O DIFFERENTIAL Routine 09/15/2024 12:37 PM EDT LA ORAL DEVICE/APPLIANCE CUSFAB- IN PROCESS Routine 08/25/2024 1:00 PM EDT Sleep apnea, obstructive from Last 3 Months Results * DENTAL LAB (10/17/2024 2:38 PM EDT) [place] 502.61 $ Comment:$502.61 #5- 1200 Date 07-02-2024 Accepted? Yes Invoice Split? Yes Prettyevgeny Swenson DDS DENTAL LAB ORDERABLES Edit ed Result - Final * COMPLETE METABOLIC PROFILE (CMP) (09/15/2024 12:37 PM EDT) Petra B Stuffelbeam PA LAB BLOOD ORDERABLES Final Result * CBC W/O Differential (09/15/2024 12:37 PM EDT) Blood Venous blood specimen / Unknown Petra B Stuffelbeam PA LAB BLOOD ORDERABLES Final Result * C-Reactive Protein, Plasma (09/15/2024 12:37 PM EDT) Blood Venous blood specimen / Unknown Petra B Stuffelbeam PA LAB BLOOD ORDERABLES Final Result from Last [address] [place] [id number] [employer] ANTHEM Care Teams Dragline Mechanic Relationship Specialty Start Date End Date Linda Jerome PA [address] [place] [address] PCP - General 09/25/23
[2024-11-11 14:11] LABS: Albumin Level 3.9 g/dl (3.5-5.0); Chloride 103 mmol/L (98-107); Potassium 4.2 mmoL/L (3.5-5.1); Sodium 136 mmol/L (136-145)
[2024-11-11 14:12] LABS: Basophils # 0.1 K/mm3 (0-0.2); Basophils % 0.9 % (0.1-2.0); Eosinophils # 0.6 Kmm3 (0.0-0.4); Eosinophils % 9.6 % (0.1-12.0); Hematocrit 42.8 % (42.0-52.0); Hemoglobin 13.6 g/dL (14.1-18.0); Immature Granulocytes # 0.01 10^3uL; Immature Granulocytes % 0.1 %; Lymphocytes # 1.8 K/mm3 (0.7-4.5); Lymphocytes % 26.3 % (10-50); Mean Corpuscular HGB Conc 31.8 g/dL (31.8-35.4); Mean Corpuscular Hemoglobin 27.8 pg (27.0-31.2); Mean Corpuscular Volume 87.5 fl (80-94); Mean Platelet Volume 9.9 fl (7.4-10.4); Monocytes # 0.5 K/mm3 (0.1-1.0); Monocytes % 7.6 % (1.7-9.3); Neutrophils # 3.7 K/mm3 (1.8-7.8); Neutrophils % 55.5 % (37.0-80.0); Nucleated Red Blood Cells # 0 10^3/uL; Nucleated Red Blood Cells % 0 %; Platelet Count 169 K/mm3 (142-424); Red Blood Count 4.89 M/mm3 (4.60-6.20); Red Cell Distribution Width 13.4 % (11.5-17.5); Red Cell Distribution Width-SD 42.7 fL; White Blood Count 6.7 K/mm3 (4.8-10.8)
[2024-11-11 14:14] LABS: Alanine Aminotransferase 64 U/L (12-78); Albumin/Globulin Ratio 1.3 (1.1-1.8); Alkaline Phosphatase 96 U/L (38-126); Anion Gap 6.2 mEq/L (5-15); Aspartate Amino Transferase 33 U/L (17-59); Bilirubin,Total 0.8 mg/dl (0.2-1.3); Blood Urea Nitrogen 11 mg/dl (9-20); Calcium 9.2 mg/dl (8.4-10.2); Carbon Dioxide 31 mmol/L (22.0-30.0); Creatinine Clearance Estimated 130 mL/min (50-200); Estimated Glomerular Filt Rate 71 ml/min (>60); GFR (African American) 85 ML/MIN (>60); Globulin 3.1 g/dL (1.3-3.2); Glucose 99 mg/dl (74-100)
[2024-11-11 14:20] LABS: C-Reactive Protein 5.8 mg/L (0-4)
--- NOTE | 2024-11-11 14:35 | HMH.PHAINT1 ---
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 I ADVISED I WAS UNSURE BUT WOULD CALL THE BOOSTER ASSEMBLER TO CLARIFY. I CALLED [facility] ([phone]) AND THEY STATED FROM THEIR INFORMATION ENTYVIO HAS NOT BEEN EVALUATED IN ALPHA-GAL SYNDROME BUT INVESTIGATIVE DATA DID NOT DETECT IT IN THE STRUCTURE OF THE DRUG. [facility] COULD NOT RECOMMEND ONE WAY OR THE OTHER TO THE SAFETY OF ENTYVIO IN ALPHA-GAL SYNDROME AND LEAVES THE DECISION MAKING UP TO THE MEDICAL PROFESSIONAL WHO WROTE THE ORDER. I RELAYED THIS TO [employer] WHO CALLED THE PROVIDERS OFFICE. CHRIS TOLD ME THE PROVIDER WAS MADE AWARE AND WISHES TO PROCEED WITH THE ENTYVIO INFUSION AT THIS TIME.
[2024-11-11 14:38] VITALS: BP 128/82; PULSE 78; RESP 16; TEMP 36.8; O2SAT 98
[2024-11-11] MEDS: SODIUM CHLORIDE 0.9% 50ML BAG 50 ML IV (14:38)
[2024-11-11] MEDS: SODIUM CHLORIDE 0.9% 10ML FLUSH SYRINGE 10 ML IV (14:38)
[2024-11-11] MEDS: VEDOLIZUMAB 300 MG in 0.9 % SODIUM CHLORIDE 250 ML 500 MG IV (14:38)
[2024-11-11 14:50] VITALS: BP 116/82; PULSE 75; RESP 16; O2SAT 99
[2024-11-11 15:05] VITALS: BP 117/80; PULSE 80; RESP 14; O2SAT 98
[2024-11-11 15:20] VITALS: BP 113/77; PULSE 74; RESP 14; O2SAT 97
[2024-11-11 15:30] VITALS: BP 124/76; PULSE 77; RESP 16; TEMP 36.8; O2SAT 99
== END 2024-11-11 15:35 | disposition home or self-care (01) ==
LOC: INF 13:37
PROVIDERS: PCP Nurse Practitioner Family; Visit Provider Physician Assistant
DX: K50.919 Crohn's disease, unspecified, with unspecified complications (principal)
CPT/HCPCS: 80053; 85025; 86140; 96413; J3380; J7050

== ENCOUNTER 2024-12-31 09:51 | Outpatient (CLI) | payer BC, MEDICARE, SELFPAY ==
--- OUTSIDE RECORDS SUMMARY | 2024-12-31 09:57 | XMS_ITS | Encounter Summary ---
Author Organization [facility] Address [address] [place] [address] Care Team Providers Care Intervention Teacher Name Role Phone Linda Jerome Primary Care Provider [phone] Encounter Details Date Type Department Care Team (Late st Contact Info) Description 11/14/2024 Results Follow-Up [facility] Medicine Specialties [address] [place] [address] Petra Walls PA [address] [facility] [address] [place] [address] Social History Tobacco Use Types [...] Description 04/07/2025 9:00 AM EST Office Visit [facility] Medicine Specialties [address] [place] [address] Petra Walls PA [address] [place] [address] documented as of this encounter Visit Diagnoses [...] documented as of this encounter Care Teams Intervention Teacher Relationship Specialty Start Date End Date Linda Jerome PA [address] [place] [address] PCP - General 09/25/23 documented as of this encounter
--- OUTSIDE RECORDS SUMMARY | 2024-12-31 09:57 | XMS_ITS | Clinical Summary ---
Author Organization [facility] Address [address] [place] [address] Care Team Providers Care Engineering Group Manager Name Role Phone Linda Jerome Primary Care Provider [phone] Allergies Active Allergy Reactions Criticality Noted Date [...] Encounters Date Type Department Care Team Description 11/14/2024 Results Follow-Up [facility] Medicine Specialties [address], [address] [place] [address] Petra Walls PA 11/12/2024 Orders Only [facility] Medicine Specialties [facility] [address] [address] Petra Walls PA 11/11/2024 Telephone [facility] Medicine Specialties [facility] [address] [address] Stephanie Mishra 10/17/2024 Telephone [facility] Room E[address] [place] [address] Sky, Janell 10/13/2024 Orders Only [facility] Medicine Specialties [facility] [address] [address] Lior De Anda, PharmD 10/10/2024 Telephone [facility] Room [address] [place] [address] Sky, Janell 10/06/2024 1:00 PM EDT Office Visit [facility] Room E214 [address] [place] [address] Pretty Amato, Sandi Hawley Sleep apnea, obstructive (Primary Dx) 10/06/2024 Travel 10/03/2024 Telephone [facility] Room E214 [address] [place] [address] Stephanie Swansonpa 09/30/2024 9:00 AM EDT Office Visit [facility] Medicine Specialties [address], [address] [place] [address] Petra Walls PA Crohn's disease of both small and large intestine without complication (CMS/HCC) (Primary Dx); Long-term current use of vedolizumab; History of bowel resection; Obesity (BMI 30-39.9) 09/30/2024 Travel from Last 3 Months Immunizations Immunization Administration Dates Next Due Hep A, Adult 02/19/2019,06/21/2018 Influenza, Unspecified 04/18/2010,06/22/2008 Influenza, injectable, quadr ivalent, preservative free 07/05/2021,03/31/2020,02/19/2019,02/18,04/25/2017,04/10/2016 Influenza, seasonal, injectable 02/09/20 15,01/26/2015,02/26/2012,10/18 Influenza, seasonal, injecta ble, preservative free 02/18/2018 Novel [id number], all formulations 06/07/2009 PPD Skin Test (TB [...] Description 04/07/2025 9:00 AM EST Office Visit [facility] [address], [address] [place] [address] Petra Walls PA [address] [place] [address] Health Maintenance Due Date Last Done Comments Dental Oral Exam 1973 Dental Prophylaxis 1973 Dental X-Ray: Bitewings 1973 Dental X-Ray: Full Mouth 1973 [facility]-HIV Screening 1973 [facility]-Hepatitis C Screening 1973 [facility]-Medicare Annual Wellness (AWV) 1973 [facility]-Infant/Child/Adol SDOH Screenings 1973 [facility]- SDOH Screenings 1991 [facility]-Adult SDOH Screenings 1991 [facility]-DTaP,Tdap,and Td Vaccines (1 - Tdap) 1992 [facility]-Hepatitis B Vaccines (1 of 3 - 19+ 3-dose series) 1992 CT Colonography 2018 FIT-DNA 2018 FIT 2018 FOBT 2018 Sigmoidoscopy 2018 [id number] Vaccine (3 - Moderna risk series) 08/13/2020 07/16/2020, 06/16/2020 [facility]-Pneumococcal Vaccine: 50+ Years (2 of 2 - PCV) 2023 02/26/2012 [facility]-Zoster Vaccines (1 of 2) 2023 [facility]-Influenza Vaccine (#1) 01/26/202507/05, 03/31/2020, 02/19/2019, Additional history exists [facility]-Depression Screening 09/30/2025 09/30/2024, 050 10/2024 Colonoscopy 04/06/2033 04/06/2023, 03/28, 01/27/2022, Additional history exists [facility]-Colorectal Cancer Screening 04/06/2033 [facility]-Hepatitis A Vaccines Aged Out 02/19/2019, 05/29 [...] Diagnosis Comments COMPLETE METABOLIC PROFILE (CMP) Routine 11/12/2024 11:06 AM EDT CBC WITH AUTO DIFFERENTIAL Routine 11/12/2024 11:06 AM EDT C-REACTIVE PROTEIN, PLASMA Routine 11/12/2024 11:06 AM EDT DENTAL LAB Routine 10/17/2024 2:38 PM EDT Sleep apnea, obstructive COLONOSCOPY 04/06/2023 9:59 AM EST from Last 3 Months or Most Recently Relevant to Health Maintenance Results * COMPLETE METABOLIC PROFILE (CMP) (11/12/2024 11:06 AM EDT) Petra B Stuffelbeam PA LAB BLOOD ORDERABLES Final Result * CBC and Differential (11/12/2024 11:06 AM EDT) Blood Venous blood specimen / Unknown Petra B Stuffelbeam PA LAB BLOOD ORDERABLES Final Result * C-Reactive Protein, Plasma (11/12/2024 11:06 AM EDT) Blood Venous blood specimen / Unknown Petra B Stuffelbeam PA LAB BLOOD ORDERABLES Final Result * DENTAL LAB (10/17/2024 2:38 PM EDT) Goldstein 502.61 $ Comment:$502.61 #5- 1200 Date 07-02-2024 Accepted? Yes Invoice Split? Yes Pretty Swenson DDS DENTAL LAB ORDERABLES Edit ed Result - Final * Colonoscopy (04/06/2023 9:59 AM EST) Anatomical Region Laterality Modality Endoscopy 04/06/2023 9:29 AM EST Impressions 04/06/2023 9:59 AM EST Please see media tab for the result. Information added by interface. Narrative Procedure Note Christin Macdonald MD - 04/06/2023 IMPRESSION: Please see media tab for the result. Information added by interface. External Provider GI PROCEDURE ORDERABLES Final Result from Last 3 Months or Most Recently Relevant to Health Maintenance Insurance [address] [id number] [employer] MEDICARE Member Subscriber Plan / Payer (Ef fective 2017-Present) Name:Tuyet Lambert Relation to Subscriber:Self Name:Tuyet Lambert Payer ID:[id number] (NA) Group ID:[id number] Type:Not on file Address: [address] [place] [id number] AN[employer] Care Teams Engineering Group Manager Relationship Specialty Start Date End Date Linda Jerome PA [address] [place] [address] PCP - General 09/25/23
--- OUTSIDE RECORDS SUMMARY | 2024-12-31 09:57 | XMS_ITS | Encounter Summary ---
Author Organization [facility] Address [address] [place] [address] Care Team Providers Care Games Manager Name Role Phone Quentin Hernandez MD Primary Care Provider + [phone] Linda Jerome Primary Care Provider [phone] Encounter Details Date Type Department Care Team (Latest Contact Info) Description 04/06/2023 Lab Requisition [facility] [address] [place] [address] Christin Macdonald MD [address] [place] [address] Crohn's disease, unspecified, without complications (CMS/HCC) Social [...] Description 04/07/2025 9:00 AM EST Office Visit [place] [facility] [address], [address] [place] [address] Petra Walls PA [address] [place] [address] documented as of this encounter Procedures Procedure Name Priority Date/Time Associated Diagnosis Comments SURGICAL PATHOLOGY EXAM Routine 04/06/2023 Crohn's disease, unspecified, without complications (CMS/HCC) documented in this encounter Results * Surgical Pathology Exam (04/06/2023) Case Report Surgical Pathology Case: [id number] Authorizing Provider: Christin Macdonald MD Collected: 04/06/2023 Ordering Location: [facility] Lab Received: 04/06/2023 1442 Pathologist: Toribio Roy DO Specimens: A) - Ileum, neoterminal ileum biopsy B) - Colon, anastomosis biopsy C) - Colon, random colon biopsy 04/09/2023 5:00 PM EST [facility] Final Diagnosis A. SMALL INTESTINE, NEOTERMINAL [...] OR DYSPLASIA. 04/09/2023 5:00 PM EST [facility] at 1700 EST Comment The finding of crypt distortion and active inflammation in the form of cryptitis within the anastomosis biopsy could be secondary to anastomotic site changes rather than active inflammatory bowel disease; however, clinical correlation is required. 04/09/2023 5:00 PM EST [facility] Clinical Information Crohn's disease, unspecified, without complications High-risk colon cancer surveillance Colonoscopy findings: - There was evidence of a prior nrsd-av-oawk ileo-colonic anastomosis in the proximal transverse colon. This was patent and was characterized by healthy appearing mucosa. The anastomosis was traversed. - The lalita-terminal ileum appeared normal. - The colon (entire examined portion) appeared normal. 04/09/2023 5:00 PM EST [facility] Gross Description A. NEOTERMINAL ILEUM BIOPSY [...] in cassette C1. 04/09/2023 5:00 PM EST [facility] Note: A resident was involved in the service. I attest I examined the relevant preparations for the specimens and confirmed the diagnosis or interpretation. 04/09/2023 5:00 PM EST [facility] Tissue Colon structure / Unknown 04/06/2023 04/06/2023 2:43 PM EST Tissue specimen (specimen) Colon structure / Unknown 04/06/2023 04/06/2023 2:43 PM EST Tissue specimen (specimen) Colon structure / Unknown 04/06/2023 04/06/2023 2:43 PM EST Christin Macdonald MD LAB PATHOLOGY ORDERABLES Final Result Performing Organization Address City/State/[facility] Co de Phone Number [facility] [address] [place] [address] documented in this encounter Visit Diagnoses Diagnosis [...] documented as of this encounter Care Teams Games Manager Relationship Specialty Start Date End Date Quentin Hernandez MD [address] [place] [address] PCP - General 10/08/20 09/24/23 Linda Jerome PA [address] [place] [address] PCP - General 09/25/23 documented as of this encounter
--- OUTSIDE RECORDS SUMMARY | 2024-12-31 09:57 | XMS_ITS | Encounter Summary ---
Author Organization [facility] Address [address] [place] [address] Care Team Providers Care Tool And Die Designer Name Role Phone Linda Jerome Primary Care Provider [phone] Encounter Details Date Type Department Care Team (Late st Contact Info) Description 11/12/2024 Orders Only [facility] Medicine Specialties [address], [address] [place] [address] Petra Walls, EDELMIRA [address] [facility] [address] [place] [address] Social History Tobacco Use Types [...] 04/07/2025 9:00 AM EST Office Visit [facility] Medicine Specialties [address], [address] [place] [address] Petra Walls PA [address] [facility] [address] [place] [address] documented as of this encounter Procedures Procedure Name Priority Date/Time Associated Diagnosis Comments COMPLETE METABOLIC PROFILE (CMP) Routine 11/12/2024 11:06 AM EDT CBC WITH AUTO DIFFERENTIAL Routine 11/12/2024 11:06 AM EDT C-REACTIVE PROTEIN, PLASMA Routine 11/12/2024 11:06 AM EDT documented in this encounter Results * COMPLETE METABOLIC PROFILE (CMP) (11/12/2024 11:06 AM EDT) us Petra B Stuffelbeam PA LAB [...] documented as of this encounter Care Teams Tool And Die Designer Relationship Specialty Start Date End Date Linda Jerome PA [address] [place] [address] PCP - General 09/25/23 documented as of this encounter
--- OUTSIDE RECORDS SUMMARY | 2024-12-31 09:57 | XMS_ITS | Encounter Summary ---
Author Organization [facility] Address [address] [place] [address] Care Team Providers Care Developer Designer Name Role Phone Quentin Hernandez MD Primary Care Provider + [phone] Linda Jerome Primary Care Provider [phone] Encounter Details Date Type Department Care Team (Late st Contact Info) Description 04/06/2023 Outside Procedure [address] [address] Provider, External Social History Tobacco [...] Visit [place] [facility]ties [address] [place] [address] Petra Walls PA [address] [place] [address] documented as of this encounter [...] documented as of this encounter Care Teams Developer Designer Relationship Specialty Start Date End Date Quentin Hernandez MD [address] [place] [address] PCP - General 10/08/20 09/24/23 Linda Jerome PA [address] [place] [address] PCP - General 09/25/23 documented as of this encounter
--- OUTSIDE RECORDS SUMMARY | 2024-12-31 09:57 | XMS_ITS | Encounter Summary ---
Author Organization [facility] Address [address] [place] [address] Care Team Providers Care Golf Caddie Name Role Phone Linda Jerome Primary Care Provider [phone] Encounter Details Date Type Department Care Team (Late st Contact Info) Description 09/15/2024 Results Follow-Up [facility] Medicine Specialties [address], [address] [place] [address] Petra Walls PA [address] [place] [address] Social History Tobacco Use Types [...] Description 04/07/2025 9:00 AM EST Office Visit [place] [facility] [address], [address] [place] [address] Petra Walls PA [address] [place] [address] documented as of this encounter Visit Diagnoses Not on filedocumented in this encounter Additional Health Concerns Assessment Noted Time A fall risk assessment has been complete d for the patient 04/01/2024 9:05 AM EST A Body Mass Index follow-up plan has been documented for the patient 09/01/2024 1:09 PM EDT documented as of this encounter Care Teams Golf Caddie Relationship Specialty Start Date End Date Linda Jerome PA [address] [place] [address] PCP - General 09/25/23 documented as of this encounter
--- OUTSIDE RECORDS SUMMARY | 2024-12-31 09:57 | XMS_ITS | Encounter Summary ---
Author Organization [facility] Address [address] [place] [address] Care Team Providers Care Rural Mail Carrier Name Role Phone Linda Jerome Primary Care Provider [phone] Encounter Details Date Type Department Care Team (Late st Contact Info) Description 11/11/2024 Telephone [facility] Medicine [facility] [address] [place] [address] [place] [address] Social History Tobacco Use Types Packs/Day Years [...] encounter Miscellaneous Notes * Telephone Encounter - Stephanie Mishra - 11/11/2024 2:26 PM EDT [facility] called Patient was in for entyvio infusion today They advised that he's been recently diagnosed with alpha gal syndrome and were wondering if he is okay to get his infusions Per RN, who spoke with provider in clinic, patient is okay to get infusion as 'there is no condraindication to taking entyvio with alpha gal syndrome' [facility] staff member verbalized understanding documented in this encounter Plan of Treatment Upcoming Encounters Date Type Department Care Team (Late st Contact Info) Description 04/07/2025 9:00 AM EST Office Visit [facility] [address] [place] [address] Petra Walls PA [address] [place] [address] documented as of this encounter [...] documented as of this encounter Care Teams Rural Mail Carrier Relationship Specialty Start Date End Date Linda Jerome PA [address] [place] [address] PCP - General 09/25/23 documented as of this encounter
== END 2024-12-31 23:59 | disposition home or self-care (01) ==
LOC: LAB 09:52
PROVIDERS: PCP Nurse Practitioner Family; Visit Provider Allergy & Immunology
DX: Z91.018 Allergy to other foods (principal)
CPT/HCPCS: 36415; 83520

== ENCOUNTER 2025-01-14 12:13 | Outpatient (CLI) | payer BC, MEDICARE, SELFPAY ==
--- OUTSIDE RECORDS SUMMARY | 2025-01-14 12:17 | XMS_ITS | Encounter Summary ---
Author Organization [facility] Address [address] [place] [address] Care Team Providers Care Wool Classer Name Role Phone Linda Jerome Primary Care Provider [phone] Encounter Details Date Type Department Care Team (Late st Contact Info) Description 11/14/2024 Results Follow-Up [facility] Medicine Specialties [address] [place] [address] Petra Walls PA [address] [facility] [address] [place] [address] Social History Tobacco Use Types [...] Description 04/07/2025 9:00 AM EST Office Visit [facility] Medicine Specialties [address], [address] [place] [address] Petra Walls PA [address] [place] [address] documented as of this encounter Visit Diagnoses [...] documented as of this encounter Care Teams Wool Classer Relationship Specialty Start Date End Date Linda Jerome PA [address] [place] [address] PCP - General 09/25/23 documented as of this encounter
--- OUTSIDE RECORDS SUMMARY | 2025-01-14 12:17 | XMS_ITS | Encounter Summary ---
Author Organization [facility] Address [address] [place] [address] Care Team Providers Care Jewelry Casting Model Maker Name Role Phone Linda Jerome Primary Care Provider [phone] Encounter Details Date Type Department Care Team (Late st Contact Info) Description 11/12/2024 Orders Only [facility] Medicine Specialties [address], [address] [place] [address] Petra Walls, EDELMIRA [address] [facility] [address] [place] [address] Social History Tobacco Use Types [...] Description 04/07/2025 9:00 AM EST Office Visit [facility] Medicine Specialties [address] [place] [address] Petra Walls PA [address] [facility] [address] [place] [address] documented as of this encounter Procedures Procedure [...] documented as of this encounter Care Teams Jewelry Casting Model Maker Relationship Specialty Start Date End Date Linda Jerome PA [address] [place] [address] PCP - General 09/25/23 documented as of this encounter
--- OUTSIDE RECORDS SUMMARY | 2025-01-14 12:17 | XMS_ITS | Clinical Summary ---
Author Organization [facility] Address [address] [place] [address] Care Team Providers Care Shipping Services Sales Representative Name Role Phone Linda Jerome Primary Care Provider [phone] Allergies Active Allergy Reactions Criticality Noted Date [...] Department Care Team Description 11/14/2024 Results Follow-Up [facility] Medicine Specialties [address], [address] [place] [address] Petra Walls PA 11/12/2024 Orders Only [facility] Medicine Specialties [address] [place] [address] Petra Walls PA 11/11/2024 Telephone [facility] Medicine Specialties [address], [address] [place] [address] Stephanie Mishra 10/17/2024 Telephone [facility] Room E214 [address] [place] [address] Janell Swanson from Last 3 Months Immunizations Immunization Administration Dates Next Due Hep A, Adult 02/19/2019,06/21/2018 Influenza, Unspecified 04/18/2010,06/22/2008 Influenza, injectable, quadr ivalent, preservative free 07/05/2021,03/31/2020,02/19/2019,02/18,04/25/2017,04/10/2016 Influenza, seasonal, injectable 02/09/20 15,01/26/2015,02/26/2012,10/18 Influenza, seasonal, injecta ble, preservative free 02/18/2018 Novel [id number], all formulations 06/07/2009 PPD Skin Test (TB [...] Description 04/07/2025 9:00 AM EST Office Visit [place] [facility] [address], [address] [place] [address] Petra Walls PA [address] [place] [address] Health Maintenance Due Date Last Done Comments Dental Oral Exam 1973 Dental Prophylaxis 1973 Dental X-Ray: Bitewings 1973 Dental X-Ray: Full Mouth 1973 [facility]-HIV Screening 1973 [facility]-Hepatitis C Screening 1973 [facility]-Medicare Annual Wellness (AWV) 1973 [facility]-Infant/Child/Adol SDOH Screenings 1973 [facility]- SDOH Screenings 1991 [facility]-Adult SDOH Screenings 1991 [facility]-DTaP,Tdap,and Td Vaccines (1 - Tdap) 1992 [facility]-Hepatitis B Vaccines (1 of 3 - 19+ 3-dose series) 1992 CT Colonography 2018 FIT-DNA 2018 FIT 2018 FOBT 2018 Sigmoidoscopy 2018 [id number] Vaccine (3 - Moderna risk series) 08/13/2020 07/16/2020, 06/16/2020 [facility]-Pneumococcal Vaccine: 50+ Years (2 of 2 - PCV) 2023 02/26/2012 [facility]-Zoster Vaccines (1 of 2) 2023 [facility]-Influenza Vaccine (#1) 01/26/202507/05, 03/31/2020, 02/19/2019, Additional history exists [facility]-Depression Screening 09/30/2025 09/30/2024, 05/0 10/2024 Colonoscopy 04/06/2033 04/06/2023, 03/28, 01/27/2022, Additional [...] 2:38 PM EDT) Goldstein 502.61 $ Comment:$502.61 #2024- 1199 Date 07-02-2024 Accepted? Yes Invoice Split? Yes [...] Relevant to Health Maintenance Insurance [address] [id number] [place] MEDICARE [facility] Care Teams Shipping Services Sales Representative Relationship Specialty Start Date End Date Linda Jerome PA [address] [place] [address] PCP - General 09/25/23
--- OUTSIDE RECORDS SUMMARY | 2025-01-14 12:17 | XMS_ITS | Encounter Summary ---
Author Organization [facility] Address [address] [place] [address] Care Team Providers Care Therapist Phys Name Role Phone Quentin Hernandez MD Primary Care Provider + [phone] Linda Jerome Primary Care Provider [phone] Encounter Details Date Type Department Care Team (Late st Contact Info) Description 04/06/2023 Outside Procedure [address] [address] Provider, External Social History Tobacco [...] Visit [place] [facility] Medicine Specialties [address] [place] [address] Petra Walls PA [address] [place] [address] documented as of this encounter [...] documented as of this encounter Care Teams Therapist Phys Relationship Specialty Start Date End Date Quentin Hernandez MD [address] [place] [address] PCP - General 10/08/20 09/24/23 Linda Jerome PA [address] [place] [address] PCP - General 09/25/23 documented as of this encounter
--- OUTSIDE RECORDS SUMMARY | 2025-01-14 12:17 | XMS_ITS | Encounter Summary ---
Author Organization [facility] Address [address] [place] [address] Care Team Providers Care Adjunct Professor Of Voice Name Role Phone Quentin Hernandez MD Primary Care Provider + [phone] Linda Jerome Primary Care Provider [phone] Encounter Details Date Type Department Care Team (Latest Contact Info) Description 04/06/2023 Lab Requisition [facility] [address] [place] [address] Christin Macdonald MD [address] [place] [address] Crohn's disease, unspecified, without complications (CMS/HCC) Social [...] Description 04/07/2025 9:00 AM EST Office Visit [facility] [address] [place] [address] Petra Walls PA [address] [place] [address] documented as of this encounter Procedures Procedure Name Priority Date/Time Associated Diagnosis Comments SURGICAL PATHOLOGY EXAM Routine 04/06/2023 Crohn's disease, unspecified, without complications (CMS/HCC) documented in this encounter Results * Surgical Pathology Exam (04/06/2023) Case Report Surgical Pathology Case: [id number] Authorizing Provider: Christin Macdonald MD Collected: 04/06/2023 Ordering Location: [facility] Lab Received: 04/06/2023 1442 Pathologist: Toribio Roy DO Specimens: A) - Ileum, neoterminal ileum biopsy B) - Colon, anastomosis biopsy C) - Colon, random colon biopsy 04/09/2023 5:00 PM EST [facility] Final Diagnosis A. SMALL INTESTINE, NEOTERMINAL [...] OR DYSPLASIA. 04/09/2023 5:00 PM EST [facility] at 1700 EST Comment The finding of crypt distortion and active inflammation in the form of cryptitis within the anastomosis biopsy could be secondary to anastomotic site changes rather than active inflammatory bowel disease; however, clinical correlation is required. 04/09/2023 5:00 PM EST [facility] Clinical Information Crohn's disease, unspecified, without complications High-risk colon cancer surveillance Colonoscopy findings: - There was evidence of a prior nmik-ml-muqk ileo-colonic anastomosis in the proximal transverse colon. This was patent and was characterized by healthy appearing mucosa. The anastomosis was traversed. - The lalita-terminal ileum appeared normal. - The colon (entire examined portion) appeared normal. 04/09/2023 5:00 PM EST [facility] Gross Description A. NEOTERMINAL ILEUM BIOPSY [...] in cassette C1. 04/09/2023 5:00 PM EST [facility] Note: A resident was involved in the service. I attest I examined the relevant preparations for the specimens and confirmed the diagnosis or interpretation. 04/09/2023 5:00 PM EST [facility] Tissue Colon structure / Unknown 04/06/2023 04/06/2023 2:43 PM EST Tissue specimen (specimen) Colon structure / Unknown 04/06/2023 04/06/2023 2:43 PM EST Tissue specimen (specimen) Colon structure / Unknown 04/06/2023 04/06/2023 2:43 PM EST Christin Macdonald MD LAB PATHOLOGY ORDERABLES Final Result Performing Organization Address City/State/[facility] Co de Phone Number [facility] [address] [place] [address] documented in this encounter Visit Diagnoses Diagnosis [...] documented as of this encounter Care Teams Adjunct Professor Of Voice Relationship Specialty Start Date End Date Quentin Hernandez MD [address] [place] [address] PCP - General 10/08/20 09/24/23 Linda Jerome PA [address] [place] [address] PCP - General 09/25/23 documented as of this encounter
--- OUTSIDE RECORDS SUMMARY | 2025-01-14 12:17 | XMS_ITS | Encounter Summary ---
Author Organization [facility] Address [address] [place] [address] Care Team Providers Care Retail Pharmacy Manager Name Role Phone Linda Jerome Primary Care Provider Encounter Details Date Type Department Care Team (Late st Contact Info) Description 09/15/2024 Results Follow-Up [facility] Medicine Specialties [address], [address] [place] [address] Petra Walls PA [address] [place] [address] Social History Tobacco Use Types [...] energy Not at all 09/30/2024 9:00 AM iLliane Bustillos RN Poor appetite or overeating Not [...] Description 04/07/2025 9:00 AM EST Office Visit [place] [facility] [address], [address] [place] [address] Petra Walls PA [address] [place] [address] documented as of this encounter Visit Diagnoses Not on filedocumented in this encounter Additional Health Concerns Assessment Noted Time A fall risk assessment has been complete d for the patient 04/01/2024 9:05 AM EST A Body Mass Index follow-up plan has been documented for the patient 09/01/2024 1:09 PM EDT documented as of this encounter Care Teams Retail Pharmacy Manager Relationship Specialty Start Date End Date Linda Jerome PA [address] [place] [address] PCP - General 09/25/23 documented as of this encounter
[2025-01-14 12:39] LABS: Hematocrit 37.4 % (42.0-52.0); Hemoglobin 12.6 g/dL (14.1-18.0); Immature Granulocytes % 0.2 %; Mean Corpuscular HGB Conc 33.7 g/dL (31.8-35.4); Mean Corpuscular Hemoglobin 28.8 pg (27.0-31.2); Mean Corpuscular Volume 85.6 fl (80-94); Nucleated Red Blood Cells % 0 %; Platelet Count 158 K/mm3 (142-424); Red Blood Count 4.37 M/mm3 (4.60-6.20); Red Cell Distribution Width-SD 43.1 fL; White Blood Count 6.2 K/mm3 (4.8-10.8)
[2025-01-14] MEDS: VEDOLIZUMAB 300 MG in 0.9 % SODIUM CHLORIDE 250 ML 500 MG IV (12:44)
[2025-01-14 12:45] LABS: Alanine Aminotransferase 27 U/L (12-78); Albumin Level 3.9 g/dl (3.5-5.0); Albumin/Globulin Ratio 1.5 (1.1-1.8); Alkaline Phosphatase 96 U/L (38-126); Anion Gap 10.9 mEq/L (5-15); Aspartate Amino Transferase 29 U/L (17-59); Bilirubin,Total 0.9 mg/dl (0.2-1.3); Blood Urea Nitrogen 14 mg/dl (9-20); Calcium 8.9 mg/dl (8.4-10.2); Carbon Dioxide 29 mmol/L (22.0-30.0); Chloride 102 mmol/L (98-107); Creatinine,Serum 1.20 mg/dl (0.66-1.25); Estimated Glomerular Filt Rate 64 ml/min (>60); GFR (African American) 77 ML/MIN (>60); Globulin 2.6 g/dL (1.3-3.2); Glucose 84 mg/dl (74-100); Potassium 3.9 mmoL/L (3.5-5.1); Sodium 138 mmol/L (136-145); Total Protein,Serum 6.5 g/dl (6.3-8.2)
[2025-01-14 12:46] VITALS: BP 116/82; PULSE 71; RESP 18; TEMP 36.6; O2SAT 98
[2025-01-14] MEDS: SODIUM CHLORIDE 0.9% 10ML FLUSH SYRINGE 10 ML IV (12:46)
[2025-01-14 12:51] LABS: C-Reactive Protein 3.6 mg/L (0-4)
[2025-01-14 13:25] VITALS: BP 127/77; PULSE 76; RESP 20; O2SAT 98
== END 2025-01-14 13:25 | disposition home or self-care (01) ==
LOC: INF 12:15
PROVIDERS: PCP Nurse Practitioner Family; Visit Provider Physician Assistant
DX: K50.919 Crohn's disease, unspecified, with unspecified complications (principal)
CPT/HCPCS: 80053; 85025; 86140; 96374; 96409; 96413; J3380; J7050

== ENCOUNTER 2025-03-19 13:15 | Outpatient (CLI) | payer BC, MEDICARE, SELFPAY ==
[2025-03-19 13:18] VITALS: BMI 32.3
[2025-03-19] MEDS: 0.9 % SODIUM CHLORIDE 50 ML 100 ML IV (13:46)
[2025-03-19 13:49] LABS: Hematocrit 40.3 % (42.0-52.0); Hemoglobin 13.3 g/dL (14.1-18.0); Immature Granulocytes % 0.3 %; Mean Corpuscular HGB Conc 33.0 g/dL (31.8-35.4); Mean Corpuscular Hemoglobin 28.7 pg (27.0-31.2); Mean Corpuscular Volume 87.0 fl (80-94); Nucleated Red Blood Cells % 0 %; Platelet Count 188 K/mm3 (142-424); Red Blood Count 4.63 M/mm3 (4.60-6.20); Red Cell Distribution Width-SD 41.2 fL; White Blood Count 7.5 K/mm3 (4.8-10.8)
[2025-03-19 13:50] VITALS: BP 122/72; PULSE 88; RESP 17; O2SAT 96
[2025-03-19] MEDS: VEDOLIZUMAB 300 MG in 0.9 % SODIUM CHLORIDE 250 ML 500 MG IV (13:50)
[2025-03-19 14:01] LABS: Albumin Level 3.6 g/dl (3.5-5.0); Chloride 100 mmol/L (98-107); Sodium 137 mmol/L (136-145)
[2025-03-19 14:02] LABS: Potassium 4.1 mmoL/L (3.5-5.1)
[2025-03-19 14:04] LABS: Alanine Aminotransferase 38 U/L (12-78); Anion Gap 10.1 mEq/L (5-15); Aspartate Amino Transferase 30 U/L (17-59); Blood Urea Nitrogen 14 mg/dl (9-20); Carbon Dioxide 31 mmol/L (22.0-30.0); Creatinine Clearance Estimated 83 mL/min (50-200); Creatinine,Serum 1.60 mg/dl (0.66-1.25); Estimated Glomerular Filt Rate 46 ml/min (>60); GFR (African American) 55 ML/MIN (>60)
[2025-03-19 14:05] LABS: Albumin/Globulin Ratio 1.2 (1.1-1.8); Alkaline Phosphatase 96 U/L (38-126); Bilirubin,Total 0.6 mg/dl (0.2-1.3); Calcium 8.2 mg/dl (8.4-10.2); Globulin 3.1 g/dL (1.3-3.2); Glucose 119 mg/dl (74-100); Total Protein,Serum 6.7 g/dl (6.3-8.2)
--- OUTSIDE RECORDS SUMMARY | 2025-03-19 14:06 | XMS_ITS | Encounter Summary ---
Author Organization [facility] Address [address] [place] [address] Care Team Providers Care Automobile Glass Technician Name Role Phone Linda Jerome Primary Care Provider [phone] Encounter Details Date Type Department Care Team (Late st Contact Info) Description 01/19/2025 Results Follow-Up [facility] Medicine Specialties [address] [place] [address] Petra Walls PA [address] [facility] [address] [place] [address] Social History Tobacco Use Types [...] Description 04/07/2025 9:00 AM EST Office Visit [facility] Medicine Specialties [address] [place] [address] Petra Walls PA [address] [place] [address] documented as of this encounter Visit Diagnoses [...] documented as of this encounter Care Teams Automobile Glass Technician Relationship Specialty Start Date End Date Linda Jerome PA [address] [place] [address] PCP - General 09/25/23 documented as of this encounter
--- OUTSIDE RECORDS SUMMARY | 2025-03-19 14:06 | XMS_ITS | Encounter Summary ---
Author Organization [facility] Address [address] [place] [address] Care Team Providers Care Production Associate Name Role Phone Linda Jerome Primary Care Provider [phone] Encounter Details Date Type Department Care Team (Late st Contact Info) Description 01/19/2025 Orders Only [facility] Medicine Specialties [address], [address] [place] [address] Petra Walls, EDELMIRA [address] [facility] [address] [place] [address] Social History Tobacco Use Types [...] [facility] Medicine Specialties [address] [place] [address] Petra Walls PA [address] [facility] [address] [place] [address] documented as of this encounter Procedures Procedure Name Priority Date/Time Associated Diagnosis Comments COMPLETE METABOLIC PROFILE (CMP) Routine 01/19/2025 11:29 AM EDT CBC WITH AUTO DIFFERENTIAL Routine 01/19/2025 11:29 AM EDT C-REACTIVE PROTEIN, PLASMA Routine 01/19/2025 11:29 AM EDT documented in this encounter Results * COMPLETE METABOLIC PROFILE (CMP) (01/19/2025 11:29 AM EDT) us Petra B Stuffelbeam PA LAB BLOOD ORDERABLES Final Result * CBC and Differential (01/19/2025 11:29 AM EDT) Blood Venous blood specimen / Unknown us Petra B Stuffelbeam PA LAB BLOOD ORDERABLES Final Result * C-Reactive Protein, Plasma (01/19/2025 11:29 AM EDT) Blood Venous blood specimen / [...] documented as of this encounter Care Teams Production Associate Relationship Specialty Start Date End Date Linda Jerome PA [address] [place] [address] PCP - General 09/25/23 documented as of this encounter
--- OUTSIDE RECORDS SUMMARY | 2025-03-19 14:06 | XMS_ITS | Encounter Summary ---
Author Organization [facility] Address [address] [place] [address] Care Team Providers Care Cleaning And Washing Equipment Operator Name Role Phone Quentin Hernandez MD Primary Care Provider + [phone] Linda Jerome Primary Care Provider [phone] Encounter Details Date Type Department Care Team (Latest Contact Info) Description 04/06/2023 Lab Requisition [facility] [address] [place] [address] Christin Macdonald MD [address] [place] [address] Crohn's disease, unspecified, without complications (CMS/HCC) Social [...] Visit [facility] [address] [place] [address] Petra Walls PA [address] [place] [address] documented as of this encounter Procedures Procedure Name Priority Date/Time Associated Diagnosis Comments SURGICAL PATHOLOGY EXAM Routine 04/06/2023 Crohn's disease, unspecified, without complications (CMS/HCC) documented in this encounter Results * Surgical Pathology Exam (04/06/2023) Case Report Surgical Pathology Case: [id number] Authorizing Provider: Christin Macdonald MD Collected: 04/06/2023 Ordering Location: [facility] Lab Received: 04/06/2023 1447 Pathologist: Toribio Roy DO Specimens: A) - Ileum, neoterminal ileum biopsy B) - Colon, anastomosis biopsy C) - Colon, random colon biopsy 04/09/2023 5:00 PM EST [facility] Final Diagnosis A. SMALL INTESTINE, NEOTERMINAL [...] OR DYSPLASIA. 04/09/2023 5:00 PM EST [facility] at 1700 EST Comment The finding of crypt distortion and active inflammation in the form of cryptitis within the anastomosis biopsy could be secondary to anastomotic site changes rather than active inflammatory bowel disease; however, clinical correlation is required. 04/09/2023 5:00 PM EST [facility] Clinical Information Crohn's disease, unspecified, without complications High-risk colon cancer surveillance Colonoscopy findings: - There was evidence of a prior heqy-ok-zreu ileo-colonic anastomosis in the proximal transverse colon. This was patent and was characterized by healthy appearing mucosa. The anastomosis was traversed. - The lalita-terminal ileum appeared normal. - The colon (entire examined portion) appeared normal. 04/09/2023 5:00 PM EST [facility] Gross Description A. NEOTERMINAL ILEUM BIOPSY [...] in cassette C1. 04/09/2023 5:00 PM EST [facility] Note: A resident was involved in the service. I attest I examined the relevant preparations for the specimens and confirmed the diagnosis or interpretation. 04/09/2023 5:00 PM EST [facility] Tissue Colon structure / Unknown 04/06/2023 04/06/2023 2:43 PM EST Tissue specimen (specimen) Colon structure / Unknown 04/06/2023 04/06/2023 2:43 PM EST Tissue specimen (specimen) Colon structure / Unknown 04/06/2023 04/06/2023 2:43 PM EST Christin Macdonald MD LAB PATHOLOGY ORDERABLES Final Result Performing Organization Address City/State/[facility] Co de Phone Number [facility] [address] [place] [address] documented in this encounter Visit Diagnoses Diagnosis [...] documented as of this encounter Care Teams Cleaning And Washing Equipment Operator Relationship Specialty Start Date End Date Quentin Hernandez MD [address] [place] [address] PCP - General 10/08/20 09/24/23 Linda Jerome PA [address] [place] [address] PCP - General 09/25/23 documented as of this encounter
--- OUTSIDE RECORDS SUMMARY | 2025-03-19 14:06 | XMS_ITS | Clinical Summary ---
Author Organization [facility] Address [address] [place] [address] Care Team Providers Care Magnetic Prospector Name Role Phone Linda Jerome Primary Care Provider [phone] Allergies Active Allergy Reactions Criticality Noted Date [...] Encounters Date Type Department Care Team Description 01/19/2025 Results Follow-Up [facility] Medicine Specialties [address] [place] [address] Petra Walls PA 01/19/2025 Orders Only [facility] Medicine Specialties [address] [place] [address] Petra Walls PA from Last 3 Months Immunizations Immunization Administration Dates Next Due Hep A, Adult 02/19/2019,06/21/2018 Influenza, Unspecified 04/18/2010,06/22/2008 Influenza, injectable, quadr ivalent, preservative free 07/05/2021,03/31/2020,02/19/2019,02/18,04/25/2017,04/10/2016 Influenza, seasonal, injectable 02/09/20 15,01/26/2015,02/26/2012,10/18 Influenza, seasonal, injecta ble, preservative free 02/18/2018 Novel [id number], all formulations 06/07/2009 PPD Skin Test (TB [...] Description 04/07/2025 9:00 AM EST Office Visit [facility] [address] [place] [address] Petra Walls PA [address] [place] [address] Health Maintenance Due Date Last Done Comments [...] 2018 FIT 2018 FOBT 2018 Sigmoidoscopy 2018 [id number] Vaccine (3 - Moderna risk series) 08/13/2020 07/16/2020, 06/16/2020 [facility]-Pneumococcal Vaccine: 50+ Years (2 of 2 - PCV) 2023 02/26/2012 [facility]-Zoster Vaccines (1 of 2) 2023 [facility]-Influenza Vaccine (#1) 01/26/202507/05, 03/31/2020, 02/19/2019, Additional history exists [facility]-Depression Screening 09/30/2025 09/30/2024, 0510/2024 Colonoscopy 04/06/2033 04/06/2023, 03/28, 01/27/2022, Additional history [...] PROTEIN, PLASMA Routine 01/19/2025 11:29 AM EDT COLONOSCOPY 04/06/2023 9:59 AM EST from Last 3 Months or Most Recently Relevant to Health Maintenance Results * COMPLETE METABOLIC PROFILE (CMP) (01/19/2025 [...] PA LAB BLOOD ORDERABLES Final Result * Colonoscopy (04/06/2023 9:59 AM EST) Anatomical [...] Most Recently Relevant to Health Maintenance Insurance [employer] MEDICARE ANTHEM Care Teams Magnetic Prospector Relationship Specialty Start Date End Date Linda Jerome PA [address] [place] [address] PCP - General 09/25/23
--- OUTSIDE RECORDS SUMMARY | 2025-03-19 14:07 | XMS_ITS | Encounter Summary ---
Author Organization [facility] Address [address] [place] [address] Care Team Providers Care Bottom Scrubber Name Role Phone Quentin Hernandez MD Primary Care Provider + [phone] Linda Jerome Primary Care Provider [phone] Encounter Details Date Type Department Care Team (Late st Contact Info) Description 04/06/2023 Outside Procedure [address] [address] Provider, External Social History Tobacco [...] Description 04/07/2025 9:00 AM EST Office Visit [place] [facility] [address] [place] [address] Petra Walls PA [address] [place] [address] documented as of this encounter [...] documented as of this encounter Care Teams Bottom Scrubber Relationship Specialty Start Date End Date Quentin Hernandez MD [address] [place] [address] PCP - General 10/08/20 09/24/23 Linda Jerome PA [address] [place] [address] PCP - General 09/25/23 documented as of this encounter
[2025-03-19 14:25] VITALS: BP 138/73; PULSE 87; RESP 16
[2025-03-19 16:34] LABS: C-Reactive Protein 4.1 mg/L (0-4)
== END 2025-03-19 23:59 | disposition home or self-care (01) ==
LOC: INF 13:16
PROVIDERS: PCP Nurse Practitioner Family; Visit Provider Physician Assistant
DX: K50.919 Crohn's disease, unspecified, with unspecified complications (principal)
CPT/HCPCS: 80053; 85025; 86140; 96365; J3380

== ENCOUNTER 2025-05-14 14:26 | Outpatient (CLI) | payer BC, MEDICARE, SELFPAY ==
[2025-05-14 14:31] VITALS: BMI 32.3
--- OUTSIDE RECORDS SUMMARY | 2025-05-14 14:34 | XMS_ITS | Encounter Summary ---
Author Organization [facility] Address [address] [place] [address] Care Team Providers Care Ec Teacher Name Role Phone Quentin Hernandez MD Primary Care Provider + [phone] Linda Jerome Primary Care Provider [phone] Encounter Details Date Type Department Care Team (Latest Contact Info) Description 04/06/2023 Lab Requisition [facility] [address] [place] [address] Christin Macdonald MD [address] [place] [address] Crohn's disease, unspecified, without complications (CMS/HCC) Social [...] as of this encounter Plan of Treatment Not on file documented as of this encounter Procedures Procedure Name Priority Date/Time Associated Diagnosis Comments SURGICAL PATHOLOGY EXAM Routine 04/06/2023 Crohn's disease, unspecified, without complications (CMS/HCC) documented in this encounter Results * Surgical Pathology Exam (04/06/2023) Case Report Surgical Pathology Case: [id number] Authorizing Provider: Christin Macdonald MD Collected: 04/06/2023 Ordering Location: [facility] Lab Received: 04/06/2023 1443 Pathologist: Toribio Roy DO Specimens: A) - Ileum, neoterminal ileum biopsy B) - Colon, anastomosis biopsy C) - Colon, random colon biopsy 04/09/2023 5:00 PM EST [facility] Final Diagnosis A. SMALL INTESTINE, NEOTERMINAL [...] DISEASE OR DYSPLASIA. 04/09/2023 5:00 PM EST [facility] at 1700 EST Comment The finding of crypt distortion and active inflammation in the form of cryptitis within the anastomosis biopsy could be secondary to anastomotic site changes rather than active inflammatory bowel disease; however, clinical correlation is required. 04/09/2023 5:00 PM EST [facility] Clinical Information Crohn's disease, unspecified, without complications High-risk colon cancer surveillance Colonoscopy findings: - There was evidence of a prior qufx-bk-bedg ileo-colonic anastomosis in the proximal transverse colon. This was patent and was characterized by healthy appearing mucosa. The anastomosis was traversed. - The lalita-terminal ileum appeared normal. - The colon (entire examined portion) appeared normal. 04/09/2023 5:00 PM EST [facility] Gross Description A. NEOTERMINAL ILEUM BIOPSY [...] in cassette C1. 04/09/2023 5:00 PM EST [facility] Note: A resident was involved in the service. I attest I examined the relevant preparations for the specimens and confirmed the diagnosis or interpretation. 04/09/2023 5:00 PM EST [facility] Tissue Colon structure / Unknown 04/06/2023 04/06/2023 2:43 PM EST Tissue specimen (specimen) Colon structure / Unknown 04/06/2023 04/06/2023 2:43 PM EST Tissue specimen (specimen) Colon structure / Unknown 04/06/2023 04/06/2023 2:43 PM EST Christin Macdonald MD LAB PATHOLOGY ORDERABLES Final Result Performing Organization Address City/State/[facility] Co de Phone Number [facility] [address] [place] [address] documented in this encounter Visit Diagnoses Diagnosis [...] documented as of this encounter Care Teams Ec Teacher Relationship Specialty Start Date End Date Quentin Hernandez MD [address] [place] [address] PCP - General 10/08/20 09/24/23 Linda Jerome PA [address] [place] [address] PCP - General 09/25/23 documented as of this encounter
--- OUTSIDE RECORDS SUMMARY | 2025-05-14 14:34 | XMS_ITS | Clinical Summary ---
Author Organization [facility] Address [address] [place] [address] Care Team Providers Care Jerker Name Role Phone Linda Jerome Primary Care Provider [phone] Allergies Active Allergy Reactions Criticality Noted Date [...] vitamin B12. 3 each 3 4 Active Syringe/Needle , Disp, (Luer Lock Safety [...] Encounters Date Type Department Care Team Description 05/12/2025 Telephone [facility] Medicine Specialties [address] [place] [address] Petra Walls PA Elevated Serum Creatinine from Last 3 Months Immunizations Immunization Administration Dates Next Due Hep A, Adult 02/19/2019,06/21/2018 Influenza, Unspecified 04/18/2010,06/22/2008 Influenza, injectable, quadr ivalent, preservative free 07/05/2021,03/31/2020,02/19/2019,02/18,04/25/2017,04/10/2016 Influenza, seasonal, injectable 02/09/20 15,01/26/2015,02/26/2012,10/18 Influenza, seasonal, injecta ble, preservative free 02/18/2018 Novel [id number], all formulations 06/07/2009 PPD Skin Test (TB [...] 10/06/2024 12:58 PM EDT Plan of Treatment Health Maintenance Due Date Last Done Comments [...] 2018 FIT 2018 FOBT 2018 Sigmoidoscopy 2018 [id number] Vaccine (3 - Moderna risk series) 08/13/2020 07/16/2020, 06/16/2020 [facility]-Pneumococcal Vaccine: 50+ Years (2 of 2 - PCV) 2023 02/26/2012 [facility]-Zoster Vaccines (1 of 2) 2023 [facility]-Influenza Vaccine (#1) 01/26/202507/05, 03/31/2020, 02/19/2019, Additional history exists [facility]-Depression Screening 09/30/2025 09/30/2024, 10/2024 Colonoscopy 04/06/2033 04/06/2023, 03/28, 01/27/2022, Additional history exists [facility]-Colorectal Cancer Screening 04/06/2033 [facility]-Hepatitis A Vaccines Aged Out 02/19/2019, 05/29 No longer eligible based on patient's age to complete this topic [facility]-Obesity Intervention Completed 025, 09/30/2024, 08/25/2024, Additional history exists HPV Vaccines (No Doses Required) Completed [facility]-HIB Vaccines Aged Out No longer e ligible based on patient's age to complete this topic [facility]-IPV Vaccines Aged Out No longer e ligible based on patient's age to complete this topic [facility]-Rotavirus Vaccines Aged Out No lo nger eligible based on patient's age to complete this topic Procedures Procedure Name Priority Date/Time Associated Diagnosis Comments COLONOSCOPY 04/06/2023 9:59 AM EST from Last 3 Months or Most Recently Relevant to Health Maintenance Results * Colonoscopy (04/06/2023 9:59 AM EST) [...] Most Recently Relevant to Health Maintenance Insurance [place] [address] [facility]LY [facility] MEDICARE ANTHEM Care Teams Jerker Relationship Specialty Start Date End Date Linda Jerome PA [address] [place] [address] PCP - General 09/25/23
--- OUTSIDE RECORDS SUMMARY | 2025-05-14 14:34 | XMS_ITS | Encounter Summary ---
Author Organization [facility] Address [address] [place] [address] Care Team Providers Care Freight Solicitor Name Role Phone Linda Jerome Primary Care Provider [phone] Reason for Visit * Reason Onset Date Comments Elevated Serum Creatinine 05/12/2025 Encounter Details Date Type Department Care Team (Late st Contact Info) Description 05/12/2025 Telephone [facility] [address] [place] [address] Petra Walls PA [address] [place] [address] Elevated Serum Creatinine Social History Tobacco Use Types Packs/Day Years [...] Miscellaneous Notes * Telephone Encounter - Tri Jasso RN - 05/12/2025 3:26 PM EST Called pt to follow up: - Reviewed with pt elevation in his creatinine level with his lab work at his last infusion - 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 * Telephone Encounter - Tri Jasso RN - 05/12/2025 3:25 PM EST Incident Analyst message: ----- Message ----- From: Petra Walls PA Sent: 03/20/2025 2:04 PM EST To: [facility] Nursing Staff Subject: RE: Import Patient with newly elevated creatinine, which can be caused by several potential factors such as dehydration, certain medications, underlying kidney disease, etc. He should f/u with PCP. Thanks documented in this encounter Plan of Treatment Not on file documented as of this encounter Visit Diagnoses [...] documented as of this encounter Care Teams Freight Solicitor Relationship Specialty Start Date End Date Linda Jerome PA [address] [place] [address] PCP - General 09/25/23 documented as of this encounter
--- OUTSIDE RECORDS SUMMARY | 2025-05-14 14:34 | XMS_ITS | Encounter Summary ---
Author Organization [facility] Address [address] [place] [address] Care Team Providers Care Document Clerk Name Role Phone Quentin Hernandez MD Primary Care Provider + [phone] Linda Jerome Primary Care Provider [phone] Encounter Details Date Type Department Care Team (Late st Contact Info) Description 04/06/2023 Outside Procedure [address] [address] Provider, External Social History Tobacco [...] documented as of this encounter Care Teams Document Clerk Relationship Specialty Start Date End Date Quentin Hernandez MD [address] [place] [address] PCP - General 10/08/20 09/24/23 Linda Jerome PA [address] [place] [address] PCP - General 09/25/23 documented as of this encounter
--- OUTSIDE RECORDS SUMMARY | 2025-05-14 14:34 | XMS_ITS | Encounter Summary ---
Author Organization Healthcare Address [address] [place] [address] Care Team Providers Care Car Washer Name Role Phone Linda Jerome Primary Care Provider [phone] Encounter Details Date Type Department Care Team (Late st Contact Info) Description 01/19/2025 Results Follow-Up [facility] Medicine Specialties [address] [place] [address] Petra Walls PA [address] [place] [address] Social History Tobacco Use Types [...] documented as of this encounter Care Teams Car Washer Relationship Specialty Start Date End Date Linda Jerome PA [address] [place] [address] PCP - General 09/25/23 documented as of this encounter
[2025-05-14 14:48] LABS: Hematocrit 38.6 % (42.0-52.0); Hemoglobin 12.9 g/dL (14.1-18.0); Immature Granulocytes % 0.1 %; Mean Corpuscular HGB Conc 33.4 g/dL (31.8-35.4); Mean Corpuscular Hemoglobin 28.9 pg (27.0-31.2); Mean Corpuscular Volume 86.5 fl (80-94); Nucleated Red Blood Cells % 0 %; Platelet Count 186 K/mm3 (142-424); Red Blood Count 4.46 M/mm3 (4.60-6.20); Red Cell Distribution Width-SD 44.0 fL; White Blood Count 7.0 K/mm3 (4.8-10.8)
[2025-05-14 14:49] VITALS: BP 113/67; PULSE 85; RESP 14; TEMP 36.6; O2SAT 97
[2025-05-14] MEDS: VEDOLIZUMAB 300 MG in 0.9 % SODIUM CHLORIDE 250 ML 500 MG IV (14:49)
[2025-05-14] MEDS: SODIUM CHLORIDE 0.9% 10ML FLUSH SYRINGE 10 ML IV (14:49)
[2025-05-14 15:05] LABS: Alanine Aminotransferase 22 U/L (12-78); Albumin Level 4.0 g/dl (3.5-5.0); Albumin/Globulin Ratio 1.4 (1.1-1.8); Alkaline Phosphatase 86 U/L (38-126); Anion Gap 10.2 mEq/L (5-15); Aspartate Amino Transferase 24 U/L (17-59); Bilirubin,Total 0.7 mg/dl (0.2-1.3); Blood Urea Nitrogen 15 mg/dl (9-20); Calcium 9.0 mg/dl (8.4-10.2); Carbon Dioxide 28 mmol/L (22.0-30.0); Chloride 105 mmol/L (98-107); Creatinine Clearance Estimated 101 mL/min (50-200); Creatinine,Serum 1.30 mg/dl (0.66-1.25); Estimated Glomerular Filt Rate 58 ml/min (>60); GFR (African American) 70 ML/MIN (>60); Globulin 2.9 g/dL (1.3-3.2); Glucose 136 mg/dl (74-100); Potassium 4.2 mmoL/L (3.5-5.1); Sodium 139 mmol/L (136-145); Total Protein,Serum 6.9 g/dl (6.3-8.2)
[2025-05-14 15:11] LABS: C-Reactive Protein 2.3 mg/L (0-4)
[2025-05-14 15:32] VITALS: BP 126/69; PULSE 90; RESP 14; O2SAT 97
== END 2025-05-14 23:59 | disposition home or self-care (01) ==
LOC: INF 14:27
PROVIDERS: PCP Nurse Practitioner Family; Visit Provider Physician Assistant
DX: K50.919 Crohn's disease, unspecified, with unspecified complications (principal)
CPT/HCPCS: 80053; 85025; 86140; 96365; J3380